=== PATIENT | male | born 1960 | race Caucasian/White ===

== ENCOUNTER 2016-07-04 13:31 | Emergency (ER) | payer OTHER ==
[~2016-07-04] VITALS: Ht 182.9 cm; Wt 91.4 kg
[~2016-07-04 13:31] MED LIST: CHOL200025 PO; CIPR-198 PO; CYAN500L3 SL; DILT360C36 PO; FLUT16SP NOSTRIL; KEN1O TOP; METR500T19 PO; MULT-666 PO; OMEP40CA36 PO; ONDA4TAB12 PO; OXYC5TAB72 PO; POTA20TA16 PO; VENL37.57 PO; WARF2TAB7 PO; ZINC50TA4 PO
[2016-07-04 13:34] VITALS: BP 130/74; PULSE 83; RESP 20; O2SAT 97
[2016-07-04 15:00] LABS: BASOPHILS % (AUTO) 0.3 % (0-3); MONOCYTES % (AUTO) 7.8 % (4-12); Mean Corpuscular Hemoglobin 28.8 pg (27.0-35.0); Mean Corpuscular Volume 85.1 fL (81-100); NEUTROPHILS % (AUTO) 61.2 % (40-74); Platelet Count 189 bil/L (150-400)
[2016-07-04] MEDS ORDERED: Ondansetron 2 mg/mL 2 mL Inj IVPUSH PRN (15:30)
[2016-07-04] MEDS ORDERED: HYDROmorphone 1 mg/mL Inj IVPUSH PRN (15:30)
[2016-07-04 15:41] LABS: INR 0.95 ratio
--- NOTE | 2016-07-04 15:56 | DRSVH ---
PROCEDURE: X-RAY CHEST ONE VIEW, PORTABLE ([id number]) INDICATIONS: infection TECHNIQUE: One view of the chest was acquired. COMPARISON: [facility], CR, XR CHEST 1VW (PORTABLE), 07/20/2015, 0:08. FINDINGS: Surgical changes and devices: Partially visualized cervical fixation plates are noted. Right-sided ce ntral venous catheter is unchanged. Lungs and pleura: No pleural effusions or pneumothorax. Lungs are clear. Mediastinum: Mediastinal contours appear normal. Heart size is normal. Bones and chest wall: No suspicious bony lesions. Overlying soft tissues appear unremarkable. IMPRESSION: No acute pulmonary process. Dictated by: Francheska Mills M.D. on 07/04/2016 at 15:55 Approved by: Francheska Mills M.D. on 07/04/2016 at 15:55
--- NOTE | 2016-07-04 16:55 | ED.REPORT ---
HPI-General Illness Date of Service Jul 04, 2016 ED Provider: Will Carter MD History of Present Illness: A 55 year old male with a history of Crohn's with ileostomy, asthma, GERD, hypertension, PE/DVT presents to the ED with a complication to his central line. The patient's right tunnel cath began draining small amounts of bloody fluid, for one week now. This is the first instance of bloody draining in the past year. He also notes mild tenderness, mild itching, and mild subjective chills. He denies fever, nausea, vomiting, chest pain, shortness of breath, abdominal pain, constipation and any other medical complaints at this time. His Crohn's is currently being treated with azathioprine and 10 L of MS fluid per week through the tunnel cath. Nursing Notes Stated Complaint: TUNNEL CATH POSS INFECTED Chief Complaint: General Complaint Nursing Notes Reviewed: Yes Allergies: Coded Allergies: Sulfa (Sulfonamide Antibiotics) (Verified Allergy, Intermediate, rash, 01/20) palpitations and flushing Scheduled Cholecalciferol (Vitamin D3) (Vitamin D3) 2,000 Unit Tablet 2,000 UNIT PO BID Ciprofloxacin (Ciprofloxacin) 500 Mg Tablet 500 MG PO BID Cyanocobalamin (Vitamin B-12) (B-12) 500 Mcg Tab.rapdis 500 MCG SL MoWeFr Diltiazem ER (Diltiazem ER) 360 Mg Cap.er.24h 360 MG PO DAILY Fluticasone Propionate (Fluticasone Propionate Nasal) 16 Gm [place].susp 2 SPRAY NOSTRIL BID Metronidazole (Metronidazole) 500 Mg Tablet 500 MG PO QID Multivitamin (Once Daily) 1 Each Tablet 1 EACH PO DAILY Omeprazole (Omeprazole) 40 Mg Capsule.dr 40 MG PO DAILY Potassium Chloride (Potassium Chloride) 20 Meq Tab.er.prt 20 MEQ PO BID Venlafaxine (Venlafaxine) 37.5 Mg Tablet 37.5 MG PO BID Warfarin Sodium (Warfarin Sodium) 2 Mg Tablet 2 MG PO SuMoWeFrSa Warfarin Sodium (Warfarin Sodium) 2 Mg Tablet 1 MG PO TuTh Zinc Gluconate (Zinc) Unknown Strength Tablet 50 MG PO BID Scheduled PRN Ondansetron ODT (Ondansetron ODT) 4 Mg Tab.rapdis 4-8 MG PO TID PRN PRN For Nausea Triamcinolone Acet (Triamcinolone Acetonide Ointment) 1 Applic/0.25 Gm Oint 1 APPLIC TOP BID PRN PRN skin irritation oxyCODONE (oxyCODONE) 5 Mg Tablet 5 MG PO Q6H PRN PRN For Pain General Time Seen by MD: 15:20 Chief Complaint Other (Central tunneled catheter concern. ) Hx Obtained From: Patient Sudden in Onset?: No Past Medical History Past Medical History 1. Crohn's disease 2. Asthma 3. GERD 4. HTN 5. Depression 6. Hx of DVT and PE, on warfarin 7. Nasal allergies Past Surgical History 1. LE Vein Stripping 2. Cervical Laminectomy 3. Total Colectomy with ileostomy 4. Appendectomy 5. Bilateral Hernia Repair 6. Cholecystectomy 7. Laparotomy with lysis of adhesions 2007 Family History Sister - CHF Brother - [place] Mother - Emphysema, Lung Cancer, Stomach Cancer Smoking History Never Smoker Social History Alcohol Use: "Social" Drug Use: Denies drug use Other Social History: Local resident Ambulatory Status Independent Review of Systems A comprehensive review of systems was conducted with the patient and found to be negative except as above in the History of Present Illness. Full Review of Systems Constitutional: Reports: Chills GI: Reports: Nausea, Vomiting (morning vomiting) Musculoskeletal: Reports: Joint pain Skin: Reports Itching, Reports Rash Physical Exam General: Pleasant gentleman sitting up in bed in no acute distress, well-developed, well-nourished, appropriately interactive. HEENT: Normocephalic, atraumatic. External ears without defect. Pupils equal, round, and reactive to light and accommodation. Anicteric sclerae, moist conjunctivae, and no lid lag. Oropharynx free of erythema and cobble stoning with moist mucosa. Neck: Supple with full range of motion. No jugular venous distension. No bruits. No lymphadenopathy or thyromegaly. Cardiovascular: Regular rate and rhythm with no murmurs, rubs, or gallops appreciated Pulmonary: Clear to auscultation bilaterally with no crackles, wheezes, or rhonchi. Normal respiratory effort with no use of accessory muscles. Abdomen: Bowel tones present. Soft, Tender to palpation, nondistended. No hepatosplenomegaly or masses appreciated. Extremities: No clubbing, cyanosis, edema, or lymphadenopathy appreciated. Skin: Normal temperature, turgor, and texture; small very mild scaly erythematous rash present lateral to the tunnel cath. No ulcers, or subcutaneous nodules appreciated. Right shoulder decrease in range of motion. Neurological: Cranial nerves grossly intact. Normal muscle strength, tone, and bulk. Reflexes, coordination, and sensory function within normal limits. No known gait impairment. Psychiatric: Normal mood and affect. Alert and oriented to person, place, and time. Vital Signs Vital Signs Date Time Temp Pulse Resp B/P Pulse Ox O2 Delivery O2 Flow Rate FiO2 07/04/16 18:27 74 16 122/62 96 Room Air 07/04/16 13:34 37.2 83 20 130/74 97 Room Air Interpretation & Diagnostics Lab Results Interpretation Result Diagram: 07/04/16 1452 07/04/16 1452 Test 07/04/16 14:52 07/04/16 16:15 White Blood Count 11.1th/mm3 (3.8-10.1) Red Blood Count 5.11mil/mm3 (4.40-5.80) Hemoglobin 14.7g/dL (13.8-17.2) Hematocrit 43.5% (41.0-50.0) Mean Corpuscular Volume 85.1fL (81-100) Mean Corpuscular Hemoglobin 28.8pg (27.0-35.0) Mean Corpuscular Hemoglobin Concent 33.8% (32.0-37.0) Red Cell Distribution Width 12.4% (12.3-15.4) Platelet Count 189bil/L (150-400) Neutrophils (%) (Auto) 61.2% (40-74) Lymphocytes (%) (Auto) 27.5% (14-46) Monocytes (%) (Auto) 7.8% (4-12) Eosinophils (%) (Auto) 3.0% (0-5) Basophils (%) (Auto) 0.3% (0-3) Prothrombin Time 10.2sec (8.1-12.5) Prothromb Time International Ratio 0.95ratio Sodium Level 138mEq/L (134-144) Potassium Level 4.3mEq/L (3.5-5.2) Chloride Level 102mEq/L (97-108) Carbon Dioxide Level 24mmol/L (18-29) Blood Urea Nitrogen 10mg/dL (6-24) Creatinine 1.14mg/dL (0.76-1.27) Estimat Glomerular Filtration Rate 71mL/min (>59) Glucose Level 93mg/dL (60-99) Calcium Level 9.0mg/dL (8.5-10.1) Total Bilirubin 0.8mg/dL (0.0-1.2) Aspartate Amino Transf (AST/SGOT) 21U/L (0-50) Alanine Aminotransferase (ALT/SGPT) 20U/L (0-44) Alkaline Phosphatase 105U/L (25-150) Total Protein 7.1g/dL (6.4-8.4) Albumin 4.2g/dL (3.4-5.0) Hold Brand Top Tube Received (Received) Re-Eval/Medical Decision Med Decision/Clinical Course Mr. Crow Sim is a 55-year-old male with a 3 year history of adult onset Crohn's flareups after childhood Crohn's with complete colectomy and ileostomy. He is currently on azathioprine and IV fluids fluids at 10 L and as per week as well as oxycodone 10 mg every 4 hours as needed pain medication and Zofran ODT anti-emetics at home. He reports 1 week onset of mild bloody oozing from his tunneled catheter site which was placed a year ago with weekly bandaging and daily cleansing. He notes some very mild tenderness in that area as well as a new mild scaly itchy lesions lateral to the tunneled catheter site. He denies fevers however has reported very mild chills at home. We will obtain blood cultures as well as blood cultures from the tunneled cath and found to telephone the tunneled cath is currently pleasant pending and we plan to follow . His vitals are stable and his white count is below his baseline of 11.1, CRP is negative at 0.1. We do not believe the tunneled catheter site is infected and can be discharged home safely. Discharge & Departure Shift Change Sign-Out Discussed Complaint(s): Yes Laboratory Evaluation: Lab evaluation discussed Imaging Studies: Imaging discussed Response to Therapy: Unchanged Primary Impression: Central line complication Disposition: Home Discharge Condition All VS Reviewed: Yes Condition: Stable Patient Instructions: Tunneled Central Lines Adult (ED) Additional Instructions: During you visit to [facility] Emergency Department we obtained blood work for infectious markers, hemoglobin levels, and electrolytes, as well as inflammatory markers. We obtained a chest x-ray. All your lab values were within normal limits and your imaging showed no acute processes or abnormalities. We took blood cultures from her cath as well as fungus level, which we plan to follow upon discharge and will contact you if they come back positive. Do not hesitate to call emergency services or your primary care physician if you experience any of the following. -High unrelenting fevers. -Uncontrolled vomiting. -Severe hypertension. -Syncope or loss of consciousness. -Chest pain or severe shortness of breath. -Drastic increase in redness and irritation of your central cath. Follow up with your primary care physician in 1-2 weeks time following your emergency department visit for medication checks and general well-being. Referrals: Ricki Rutledge MD (PCP) Attending Statement I saw and evaluated patient with Resident Dr Ahmadi and agree with assessment and plan as above.. 55-year-old male history of Crohn's setting by primary doctor after he called to complain that there was redness around his tunneled catheter. Reports this for the last week which is resolved today. No associated nausea vomiting, fevers or any other associated symptoms. There is no evidence of infection clinically. White blood cell count is 11,000 which is decreased from previous. CRP is normal. Blood cultures sent. No evidence of infection based on labs and exam at this time. Able for discharge home with return precautions regarding any redness, pain, swelling, discharge, any other new or worsening symptoms. Otherwise follow-up with primary doctor in 1-2 days for reevaluation. copies to: Ricki Rutledge MD, COREY P DO Jul 04, 2016 15:51 Will Carter MD Jul 04, 2016 18:56
[2016-07-04 18:27] VITALS: BP 122/62; PULSE 74; RESP 16; O2SAT 96
[2016-09-07] MEDS ORDERED: CLOT45CR7 TP (16:29)
[2016-09-07] MEDS ORDERED: [UNRECOGNIZED DRUG - OTHER] (16:29)
[2016-09-07] MEDS ORDERED: CETI5TAB28 PO (16:29)
[2016-09-07] MEDS ORDERED: AZTH50T PO (16:29)
[2016-09-07] MEDS ORDERED: LOM PO (16:29)
[2016-09-07] MEDS ORDERED: REMICADE IV (16:29)
[2016-09-07] MEDS ORDERED: EPIN0.3P2 IJ (16:29)
== END 2016-07-04 18:28 | disposition home or self-care (01) ==
LOC: SED 13:31
DX: T82.534A Leakage of infusion catheter, initial encounter (principal); Y83.8 Other surgical procedures as the cause of abnormal reaction of the patient, or of later complication, without mention of misadventure at the time of the procedure; Y99.8 Other external cause status; Y92.9 Unspecified place or not applicable; K50.90 Crohn's disease, unspecified, without complications; I10 Essential (primary) hypertension; J45.909 Unspecified asthma, uncomplicated; Z90.49 Acquired absence of other specified parts of digestive tract; Z86.718 Personal history of other venous thrombosis and embolism; Z87.19 Personal history of other diseases of the digestive system; Z79.01 Long term (current) use of anticoagulants; Z88.2 Allergy status to sulfonamides
CPT/HCPCS: 36415; 71010; 80053; 85025; 85610; 86140; 87040; 87449; 96374; 96375; 99284; J1170; J2405

== ENCOUNTER 2016-08-10 18:29 | Inpatient (IN) | payer OTHER ==
[~2016-08-10] VITALS: Ht 182.9 cm; Wt 96.0 kg
[2016-08-10 18:00] VITALS: PULSE 112
[2016-08-10 18:44] VITALS: BP 149/90; PULSE 130; RESP 22
[2016-08-10] MEDS ORDERED: 0.9% Sodium Chloride 1,000 ML IV ONE ×2 (19:00→20:20)
--- NOTE | 2016-08-10 19:00 | ED.REPORT ---
HPI-Abd Pain M 40 and Over Date of Service Aug 10, 2016 ED Provider: Ge Pandey DO A 55 year old male with a history of Crohn's disease, hypertension, depression, and ileostomy presents to the ED complaining of abdominal pain. This is accompanied by nausea and vomiting. The pt believes that his symptoms are due to a flare of Crohn's. He began feeling abdominal cramping two days ago and did not eat in an attempt to avoid a flare of Crohn's. He ate a piece of toast today and began experiencing severe abdominal pain, nausea, vomiting, and belching. The pt has been emptying his ostomy bag hourly. He usually takes oxycodone for the pain, but this has been ineffective. The pt denies any history of C. difficile. He is no longer on Warfarin. Nursing Notes Stated Complaint: STOMACH PAIN,HEADACHE,NAUSEA Chief Complaint: Male Abdominal Pain Nursing Notes Reviewed: Yes Allergies: Coded Allergies: Sulfa (Sulfonamide Antibiotics) (Verified Allergy, Intermediate, rash, ) palpitations and flushing Scheduled Cholecalciferol (Vitamin D3) (Vitamin D3) 2,000 Unit Tablet 2,000 UNIT PO BID Cyanocobalamin (Vitamin B-12) (B-12) 500 Mcg Tab.rapdis 500 MCG SL MoWeFr Fluticasone Propionate (Fluticasone Propionate Nasal) 16 Gm [place].susp 2 SPRAY NOSTRIL BID Multivitamin (Once Daily) 1 Each Tablet 1 EACH PO MONWEDFRI Omeprazole (Omeprazole) 40 Mg Capsule.dr 40 MG PO DAILY Potassium Chloride (Potassium Chloride) 20 Meq Tab.er.prt 20 MEQ PO BID Promethazine (Promethazine) 12.5 Mg Tablet 12.5 MG PO DAILY Venlafaxine ER (Venlafaxine ER) 37.5 Mg Cap.er.24h 37.5 MG PO HS Zinc Gluconate (Zinc) Unknown Strength Tablet 50 MG PO BID Scheduled PRN Ondansetron ODT (Ondansetron ODT) 4 Mg Tab.rapdis 4-8 MG PO TID PRN PRN For Nausea Triamcinolone Acet (Triamcinolone Acetonide Ointment) 1 Applic/0.25 Gm Oint 1 APPLIC TOP BID PRN PRN skin irritation oxyCODONE (oxyCODONE) 5 Mg Tablet 5 MG PO Q6H PRN PRN For Pain General Time Seen by MD: 19:00 Chief Complaint Abdominal pain Hx Obtained From: Patient Arrived By: Walk-in Sudden in Onset?: No Onset Occurred: 2 days ago Symptom Duration: Since onset Recent Healthcare: Recent doctor visit, Recent hospitalization Similar Sx Previous: Yes Past Medical History Past Medical History Notes: GI: Dr. Jemal Esquivel, Past Medical History 1. Crohn's disease 2. Asthma 3. GERD 4. HTN 5. Depression 6. Hx of DVT and PE 2014, previously on warfarin 7. Nasal allergies Past Surgical History 1. LE Vein Stripping 2. Cervical Laminectomy 3. Total Colectomy with ileostomy 4. Appendectomy 5. Bilateral Hernia Repair 6. Cholecystectomy 7. Laparotomy with lysis of adhesions 2007 Family History Sister - CHF Brother - [place] Mother - Emphysema, Lung Cancer, Stomach Cancer Smoking History Never Smoker Social History Alcohol Use: "Social" Drug Use: Denies drug use Other Social History: Local resident Ambulatory Status Independent Review of Systems Review of Systems Note: frequent emptying of ostomy bag Constitutional: Denies: Fever Respiratory: Denies: Non-productive cough Cardiovascular: Denies: Chest pain GI: Reports: Abdominal pain, Belching, Nausea, Vomiting Musculoskeletal: Denies: Back pain Complete sys rev & neg: except as marked. Physical Exam Initial Vital Signs Vital Signs (First) Date Time Temp Pulse Resp B/P Pulse Ox O2 Delivery O2 Flow Rate FiO2 08/10/16 18:44 37.4 130 22 149/90 Room Air 08/10/16 22:30 97 Initial VS: Reviewed General/Constitutional: Awake, Alert acutely ill actively wretching Respiratory / Chest: Atraumatic, Breath sounds NL, Breath sounds = bilat, No respiratory distress Cardiovascular: Regular rhythm, Heart sounds NL Heart Rate / Rhythm: Positive: Tachycardia Abdomen: Atraumatic diffusely tender extended hyperactive bowel sounds Back: Atraumatic, Full range of motion Head / Eyes: Atraumatic, Normocephalic, PERRL, EOMI ENT: Atraumatic, Airway patent, Mucous membranes moist Skin: Atraumatic, Color NL, No rash, Warm, Dry Neurologic: Oriented X3, Speech NL, No motor deficits, No sensory deficits Neck: Atraumatic, Supple, Full range of motion Upper Extremity / MS: Atraumatic, Full range of motion Lower Extremity / Pelvis / MS: Atraumatic, Full range of motion Psychiatric: Affect NL, Mood NL Interpretation & Diagnostics Interpretation & Diagnostics: Abdomen CT: IMPRESSION: 1. Surgical changes reflecting colectomy as well as lower quadrant osteopenia there is a questionable appearance of thickening within small bowel loops in the left hemiabdomen without appreciable surrounding inflammatory change. This could be reflective of early changes of inflammation related to Crohn's disease. 2. Distal esophageal thickening traversing the gastroesophageal junction with small hiatal hernia. Could relate to esophagitis. It is unchanged from prior exam, but mildly more prominent compared to prior exams dated 07/23/13. Recommend interval followup as indicated. Dictated by: Francheska Mills M.D. on 08/10/2016 at 21:46 Approved by: Francheska Mills M.D. on 08/10/2016 at 21:52 Lab Results Interpretation Result Diagram: 08/11/16 0445 08/11/16 0445 Test 08/10/16 19:19 08/10/16 20:49 Prothrombin Time 10.4sec (8.1-12.5) Prothromb Time International Ratio 0.97ratio Magnesium Level 1.9mg/dL (1.6-2.6) Lipase 32U/L (13-60) Urine Color Yellow (YELLOW) Urine Appearance Hazy (CLEAR,HAZY) Urine pH 6.0 (5.0-8.0) Urine Specific [place] 1.025 (1.003-1.035) Urine Protein Negativemg/dL (NEG,TRACE) Urine Glucose (UA) Negativemg/dL (NEGATIVE) Urine Ketones Negativemg/dL (NEGATIVE) Urine Occult Blood Negative (NEGATIVE) Urine Nitrite Negative (NEGATIVE) Urine Bilirubin Negative (NEGATIVE) Urine Urobilinogen Normalmg/dL (NORMAL) Urine Leukocyte Esterase Negative (NEGATIVE) Urine RBC 0-2/hpf (0-2) Urine WBC 0-5/hpf (0-5) Urine Epithelial Cells Moderate/hpf (NONE-MOD) Urine Crystals None seen (NONE SEEN) Urine Bacteria Few/hpf (NONE-FEW) Urine Hyaline Casts None/lpf (NONE) Urine Granular Casts None seen (NONE SEEN) Urine Waxy Casts None seen (NONE SEEN) Urine Red Blood Cell Casts None seen (NONE SEEN) Urine White Blood Cell Casts None seen (NONE SEEN) Urine Mucus Present (None Seen) Urine Trichomonas None seen (NONE SEEN) Urine Yeast None (NONE SEEN) Urinalysis Comment None Urine Culture Reflexed Not indicated Pulse Oximetry Interpretation Pulse Oximetry Interpretation: 97% on room air Pulse Oximetry: Pulse Ox normal ECG Interpretation ECG Interpretation: sinus tachycardia with a rate of 118 incomplete RBBB significant artifact cannot comment on ST segments due to artifact Time: 19:15 Interpreted by: ED physician Re-Eval/Medical Decision Source of Hx: Old records Time of Eval: 23:56 Re-Evaluation/Progress Note: Pt rechecked, whose pain has returned. He is nauseated and tachycardic. He is informed of his radiology results, lab results, and diagnosis. The plan for admission is discussed. The pt understands and agrees with the plan. All questions are addressed at this time. Consultation #1: Referral / Consult Name: Houston Charles MD Consulted With: Hospitalist Call Returned at: 00:14 Mortgage Underwriter: Agrees with eval Note: Spoke with Dr. Charles, hospitalist, regarding pt's case. Dr. Charles requests GI consultation first. Consultation #2: Referral / Consult Name: Adonis Rao MD Call Returned at: 00:19 Mortgage Underwriter: Agrees with eval, Agrees with plan Note: Spoke with Dr. Rao GI, regarding pt's case. Dr. Rao agrees to see the pt tomorrow and recommends no steroids until this point. Consultation #3: Referral / Consult Name: Houston Charles MD Consulted With: Hospitalist Call Returned at: 00:23 Mortgage Underwriter: Agrees with eval, Agrees with plan, Accepts admit Note: Spoke with Dr. Charles, hospitalist, regarding pt's case. Dr. Charles agrees with the evaluation and agrees to admit the pt. Counseled Regarding: Diagnosis, Lab results, Need for admission Discharge & Departure Primary Impression: Crohn's disease Gastrointestinal tract location: unspecified location Digestive disease complication type: without complications Qualified Code: K50.90 - Crohn's disease, unspecified, without complications Additional Impressions: Intractable pain Nausea & vomiting Vomiting type: unspecified Vomiting Intractability: unspecified Qualified Code: R11.2 - Nausea with vomiting, unspecified Disposition: ADMITTED TO HOSPITAL Vital Signs - All Vital Signs Date Time Temp Pulse Resp B/P Pulse Ox O2 Delivery O2 Flow Rate FiO2 08/11/16 00:18 108 15 132/71 94 Room Air 08/10/16 22:30 102 19 132/64 97 Room Air 08/10/16 18:44 37.4 130 22 149/90 Room Air )( All Prior VS Reviewed: Yes Condition: Stable Referrals: Ricki Rutledge MD (PCP) María Elenaibkaitlin Attestation Portions of this note were transcribed by Bryant Arias. I, Dr. Pandey personally performed the history, physical exam and medical decision-making; I reviewed and confirmed the accuracy of the information in the transcribed note. Signed by: Akila Garcia, 08/11/2016 and 0054. copies to: Ricki Rutledge MD, Todd P DO Aug 10, 2016 19:00 BRYANT ARIAS Aug 10, 2016 19:24 Urine Urobilinogen Normalmg/dL (NORMAL) Urine Leukocyte Esterase Negative (NEGATIVE) Urine RBC 0-2/hpf (0-2) Urine WBC 0-5/hpf (0-5) Urine Epithelial Cells Moderate/hpf (NONE-MOD) Urine Crystals None seen (NONE SEEN) Urine Bacteria Few/hpf (NONE-FEW) Urine Hyaline Casts None/lpf (NONE) Urine Granular Casts None seen (NONE SEEN) Urine Waxy Casts None seen (NONE SEEN) Urine Red Blood Cell Casts None seen (NONE SEEN) Urine White Blood Cell Casts None seen (NONE SEEN) Urine Mucus Present (None Seen) Urine Trichomonas None seen (NONE SEEN) Urine Yeast None (NONE SEEN) Urinalysis Comment None Urine Culture Reflexed Not indicated Lactic Acid Level 1.7mmol/L (0.4-2.0) Pulse Oximetry Interpretation Pulse Oximetry Interpretation: 97% on room air Pulse Oximetry: Pulse Ox normal ECG Interpretation ECG Interpretation: sinus tachycardia with a rate of 118 incomplete RBBB significant artifact cannot comment on ST segments due to artifact Time: 19:15 Interpreted by: ED physician Re-Eval/Medical Decision Source of Hx: Old records Time of Eval: 23:56 Re-Evaluation/Progress Note: Pt rechecked, whose pain has returned. He is nauseated and tachycardic. He is informed of his radiology results, lab results, and diagnosis. The plan for admission is discussed. The pt understands and agrees with the plan. All questions are addressed at this time. Consultation #1: Referral / Consult Name: Houston Charles MD Consulted With: Hospitalist Call Returned at: 00:14 Mortgage Underwriter: Agrees with eval Note: Spoke with Dr. Charles hospitaldanica, regarding pt's case. Dr. Charles requests GI consultation first. Consultation #2: Referral / Consult Name: Adonis Rao MD Call Returned at: 00:19 Mortgage Underwriter: Agrees with eval, Agrees with plan Note: Spoke with Dr. Rao, GI, regarding pt's case. Dr. Rao agrees to see the pt tomorrow and recommends no steroids until this point. Consultation #3: Referral / Consult Name: Houston Charles MD Consulted With: Hospitalist Call Returned at: 00:23 Mortgage Underwriter: Agrees with eval, Agrees with plan, Accepts admit Note: Spoke with thu Mcdermott, regarding pt's case. Dr. Charles agrees with the evaluation and agrees to admit the pt. Counseled Regarding: Diagnosis, Lab results, Need for admission Discharge & Departure Primary Impression: Crohn's disease Gastrointestinal tract location: unspecified location Digestive disease complication type: without complications Qualified Code: K50.90 - Crohn's disease, unspecified, without complications Additional Impressions: Intractable pain Nausea & vomiting Vomiting type: unspecified Vomiting Intractability: unspecified Qualified Code: R11.2 - Nausea with vomiting, unspecified Disposition: ADMITTED TO HOSPITAL Vital Signs - All Vital Signs Date Time Temp Pulse Resp B/P Pulse Ox O2 Delivery O2 Flow Rate FiO2 08/11/16 00:18 108 15 132/71 94 Room Air 08/10/16 22:30 102 19 132/64 97 Room Air 08/10/16 18:44 37.4 130 22 149/90 Room Air )( All Prior VS Reviewed: Yes Condition: Stable Referrals: Ricki Rutledge MD (PCP) Akila Attestation Portions of this note were transcribed by Bryant Arias. I, Dr. Pandey personally performed the history, physical exam and medical decision-making; I reviewed and confirmed the accuracy of the information in the transcribed note. Signed by: Akila Garcia, 08/11/2016 and 0054. copies to: Ricki Rutledge MD, Todd P DO Aug 10, 2016 19:00 BRYANT ARIAS Aug 10, 2016 19:24
[2016-08-10] MEDS: Ondansetron 2 mg/mL 2 mL Inj IVPUSH PRN ×3 (19:27→21:51)
[2016-08-10] MEDS: HYDROmorphone 0.5 mg/0.5 mL iSecure Syringe IVPUSH PRN ×3 (19:27→21:51)
[2016-08-10 19:42] LABS: Mean Corpuscular Volume 87.2 fL (81-100)
[2016-08-10 19:52] LABS: BASOPHILS % (AUTO) 0.5 % (0-3); EOSINOPHILS % (AUTO) 4.4 % (0-5); INR 0.97 ratio; MONOCYTES % (AUTO) 11.2 % (4-12); NEUTROPHILS % (AUTO) 52.5 % (40-74); Platelet Count 152 bil/L (150-400)
[2016-08-10 19:59] LABS: Magnesium 1.9 mg/dL (1.6-2.6)
[2016-08-10 21:10] LABS: COLOR,URINE YELLOW (YELLOW)
[2016-08-10 21:11] LABS: APPEARANCE,URINE HAZY (CLEAR,HAZY); OCCULT BLOOD,URINE NEGATIVE (NEGATIVE)
[2016-08-10 21:12] LABS: UROBILINOGEN,URINE NORMAL (NORMAL)
--- NOTE | 2016-08-10 21:54 | DRSVH ---
PROCEDURE: CT ABDOMEN AND PELVIS WITH CONTRAST (PNL-7102) INDICATIONS: crohn's disease, severe pain, vomiting, TECHNIQUE: After the administration of intravenous contrast, 5 mm thick sections acquired from the diaphragm to the symphysis. 5 mm coronal and sagittal reformats were acquired. For radiation dose reduction, the following was used: automated exposure control, adjustment of mA and/or kV according to patient siz e. COMPARISON: [facility], CT, ABD/PELVIS W/CON (PNL), 07/23/2013, 20:33. [facility], CT, CT ABD PELVIS W CON, 01/21/2016, 18:50. FINDINGS: Image quality: Excellent. ABDOMEN: Lung bases: There is an unchanged appearance of nodular patchy opacity within the lingula, unchanged. In addition, there is a patchy consolidative like opacity within the left base, new compared to prio r exam. Solid organs: Liver and spleen are at the upper limits of normal in size the. Hepatic steatosis is p resent. Gallbladder has been removed. Biliary system is non dilated. Pancreas enhances normally. N o adrenal nodules. Kidneys demonstrate normal size and enhancement, without hydronephrosis. Peritoneum and bowel: Small bowel loops demonstrate a normal appearance of thickening within the left hemiabdomen. No definitive pericolonic inflammatory change. No free fluid or air. Right lower quadr ant ostomy site is present. Surgical changes consistent with colectomy are noted. Nodes and vessels: No retroperitoneal or mesenteric adenopathy by size criteria. Aorta and inferior vena cava are normal in size. Miscellaneous: No ventral hernias. There is diffuse thickening of the distal esophagus traversing ga stroesophageal junction. It is relatively unchanged compared 01/21/16. Hiatal hernia is present. PELVIS: Genitourinary: Bladder wall thickness is normal. Miscellaneous: No inguinal hernias or adenopathy. Bones: No suspicious bony lesions. No vertebral body compression fractures. IMPRESSION: 1. Surgical changes reflecting colectomy as well as lower quadrant osteopenia there is a questionable appearance of thickening within small bowel loops in the left hemiabdomen without appreciable surrou nding inflammatory change. This could be reflective of early changes of inflammation related to Crohn 's disease. 2. Distal esophageal thickening traversing the gastroesophageal junction with small hiatal hernia. Co uld relate to esophagitis. It is unchanged from prior exam, but mildly more prominent compared to harris or exams dated 07/23/13. Recommend interval followup as indicated. Dictated by: Francheska Mills M.D. on 08/10/2016 at 21:46 Approved by: Francheska Mills M.D. on 08/10/2016 at 21:52
[2016-08-10 22:30] VITALS: BP 132/64; PULSE 102; RESP 19; O2SAT 97
[2016-08-11] VITALS (8 sets, daily range): BP systolic 80–132; BP diastolic 60–72; PULSE 98–115; RESP 15–22; O2SAT 93–98
[2016-08-11] MEDS ORDERED: Ketorolac 15 mg/mL Inj IVPUSH ONE (01:10)
[2016-08-11] MEDS: 0.9% Sodium Chloride 1,000 ML IV SCH ×2 (01:35→13:28)
[2016-08-11] MEDS ORDERED: PROM12.510 PO (01:50)
--- NOTE | 2016-08-11 02:08 | PCM.HPMED ---
Subjective Date of Service Aug 11, 2016 Primary Provider: Admitting Physician: Houston Charles MD Primary Care Physician: Ricki Rutledge MD Attending Physician: Houston Charles MD Chief Complaint: Possible Crohn's flare History of Present Illness: 55-year-old gentleman with history of Crohn's (currently on Remicade) status post colectomy with ileostomy who presents three-day complaint of increased nausea and vomiting associated with decreased by mouth intake, and increased bilateral lower abdominal cramping associated with increased ostomy output. Patient reports that he was in his usual state of health until approximately 3 days ago when he experienced increased bilateral lower abdominal cramping. He was concerned this was a Crohn's flare, and abruptly cut back on dietary items noted in his history to complicate his Crohn's. He notes that there is associated increased output from his ostomy which is described as clear with minimal bloody streaks. He reports that on the morning of 08/10/16 he ate a piece of toast, and immediately started to feel nauseous and is subsequently had intractable nausea and vomiting until his presentation at the ER. He denies bloody or coffee-ground emesis. He reports that he feels overall malaise , and upon presentation in the ER he was feeling quite cold and even chilled ( but is not aware of any fevers). He reports that when he gets sick like this he does have bilateral lower extremity weakness for which she uses a cane. Patient follows with GI at [facility] (Dr. Jemal Esquivel ). A perform multiple trials with multiple different medications to control his Crohn's. Most recently (his last visit was 05/2016) he was started on 1 month of azathioprine (completed last month), and is currently on Remicade (his last reported dose was last Sunday (08/01/16), and reports that his next dose is scheduled for next (07/21/16)). Historically he reports that he has these episodes approximately every several months. He denies any historical use of steroids. He denies any other complaints except for a headache at this time (states that it came on following the third dose of IV narcotic here in ER) . He reports that he will occasionally get headaches at home which respond well to NSAIDs. Denies sick contacts, recent travel, recent antibiotics. In the ER, patient is tachycardic, but afebrile and his other vital signs are unremarkable. He has been given 2 L of normal saline, 3 doses of 0.5 mg IV hydromorphone, and 3 doses of 4 mg IV ondansetron. Labs demonstrated an elevated lactic acid initially, which came down to 1.7 following fluid administration. Otherwise, labs are unremarkable. CT of the abdomen demonstrates equivocal/possible thickening within some small bowel loops, but without appreciable surrounding inflammatory change. There is also some note of distal esophageal thickening traversing the GE junction with a small hiatal hernia. This last was noted to be relatively unchanged from prior exam in 2013. Patient reports at this time that he feels a little cool (but not cold like before), has a moderate headache, but otherwise feels rather comfortable. He reports that it was somewhat difficult to urinate here in the ER in the urinal, but denies significant historical difficulty with this. He otherwise denies any complaints. Patient is admitted under inpatient status with expected length of stay greater than 2 midnights due to severity of presenting symptoms, risk of adverse event, and complexity of treatment plan. Comprehensive review of systems conducted and was negative except for the pertinent positives listed in history of present illness above. Allergies Coded Allergies: Sulfa (Sulfonamide Antibiotics) (Verified Allergy, Intermediate, rash, ) palpitations and flushing Home Medications Jerome Sim. [id number] 1960 07/20/2016 10:20 AM / azathioprine 50 mg tablet-no longer taking Is now on Remicade through GI take 2 tablet by ORAL route every day 12/03/2014 cane regular cane 07/22/2015 cetirizine 10 mg tablet take 1 tablet by oral route every day 05/24/2016 clotrimazole 1 % topical cream apply by topical route 2 times every day to the affected and surrounding areas of skin in the morning and evening Daily Vitamin tablet take 1 tablet by oral route 3 days per week 07/22/2015 diphenoxylate-atropine 2.5 mg-0.025 mg tablet 1-2 tab 3 time a day prn 05/16/2010 Epipen 2-Jeyson take as needed 05/24/2016 Flonase Allergy Relief 50 mcg/actuation nasal spray,suspension inhale 2 spray by intranasal route every day in each nostril 01/25/2016 omeprazole 40 mg capsule,delayed release TAKE 1 CAPSULE DAILY BEFORE A MEAL FOR ACID REFLUX 12/16/2014 ondansetron 4 mg disintegrating tablet take 1 Tablet by oral route every [address] on top of the tongue where it will dissolve, then swallow as needed. 07/06/2016 oxycodone 5 mg tablet take 1 tablet by ORAL route every 6 hours as needed for pain 02/16/2016 potassium chloride ER 20 mEq tablet,extended release take 1 tablet by oral route 2 times every day with food 10/05/2014 triamcinolone acetonide 0.1 % topical cream apply by topical route 2 times every day a thin layer to the affected area(s) 04/10/2016 venlafaxine ER 37.5 mg capsule,extended release 24 hr TAKE ONE CAPSULE BY MOUTH DAILY WITH FOOD. Vitamin B-12 2,500 mcg sublingual tablet take 1 tablet SL daily 09/13/2015 Vitamin D3 2,000 unit capsule take 2 capsules orally daily. 07/22/2015 zinc 50 mg tablet 2 tab a day PMH 1. Crohn's disease, currently on immunosuppressant therapy with Remicade * Diagnosed with Crohn's in 1989 with surgeries in that year. No further therapy until 2012 when he developed recurrence. * Failed: Humira, infliximab, azathioprine, methotrexate, vedolizumab, ustekinumab, and prednisone. * Endoscopy dated 01/21/16: * EGD: Large hiatal hernia. Erythematous gastropathy with biopsies taken. * Colonoscopy: Severe active Crohn's disease in the distal 10 cm of the ileum. Mild inflammation with interval improvement proximal to this. 2. Asthma 3. GERD 4. HTN 5. Depression 6. Hx of DVT and PE 2014, previously on warfarin 7. Nasal allergies 8. Occasional headaches 9. It appears patient's baseline creatinine is 1.1-1.2 (per outpatient record) Remote history of IV drug use (meth 1984) History of PSVT History of hepatitis C (treated successfully) Past Surgical History 1. LE Vein Stripping 2. Cervical Laminectomy with fusion 3. Total Colectomy with ileostomy 4. Appendectomy 5. Bilateral Hernia Repair 6. Cholecystectomy 7. Laparotomy with lysis of adhesions 2008 Tonsils-adenoids Family History Brother - ID Brother (2) with muscular dystrophy, and of complications secondary to such Brother with gastric cancer He does not know his father's health history (there is some question in outpatient record of AIDS, and also a note stating that his father at the age of 42 post ( His mother had depression, emphysema, colon cancer (onset age 51)-some notes mention colon cancer and lung cancer Sr. with congestive heart failure ( at the age of 42 secondary to complications of heart failure) Sr. 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 Denies any international travel. Exam Vital Signs Vital Sign - Last Date Time Temp Pulse Resp B/P Pulse Ox O2 Delivery O2 Flow Rate FiO2 08/11/16 00:18 108 15 132/71 94 Room Air 08/10/16 18:44 37.4 Exam General: Alert, Oriented X3, Cooperative, No Acute Distress, but does appear cold and has the blankets up to his chin Head: Normocephalic, atraumatic. External ears normal. Eyes: PERRL, EOMI. Anicteric sclerae. Sclerae are not injected Mouth: Mouth Normal, Mucous Membranes Moist/Tennyson. Do not appreciate any aphthous ulcers Neck: Neck supple with full range of motion. No Thyromegaly. Chest & Lungs: Clear to auscultation bilaterally with no crackles, wheezes, or rhonchi. Cardiovascular: Tachycardic Rate/sinus Rhythm on the monitor, Normal S1, Normal S2, No Murmurs/Rubs/Gallops radial pulses are 2+ bilaterally as are the posterior tibials Abdomen: Tender to palpation in the bilateral lower leavitt, Non-distended with minimal guarding except for left lower lodging, No masses appreciated, Normoactive bowel tones, surgical scars apparent. Ileostomy bag in the right lower quadrant (bag is not transparent, and therefore cannot assess the ostomy at this time). Musculoskeletal: Normal Range of Motion Extremities: No cyanosis/clubbing/edema bilat. Do not appreciate any indication of subcutaneous nodules Skin: Skin is warm to the touch. There is some scattered macular erythematous spots over the anterior chest (patient reports these are chronic and unchanged). Neurological: Grossly Neurologically Intact, Cranial Nerves 2-12 Intact, Normal Speech Psych: Normal mood and affect. Thought process and content intact. Lab and Diagnostics Labs Coags look good Lactic acid was 3.7, now 1.7 LFTs look good Lipase is 32 Total protein and albumin are normal UA shows moderate epithelial cells otherwise unremarkable. Result Diagram: 08/10/16191808/10/161918 Microbiology No micro-studies at this time, but please note that stool PCR has been ordered. X-Rays, CTs and MRIs Date of Service: 08/10/162102 PROCEDURE: CT ABDOMEN AND PELVIS WITH CONTRAST (PNL-7102) IMPRESSION: 1. Surgical changes reflecting colectomy as well as lower quadrant osteopenia there is a questionable appearance of thickening within small bowel loops in the left hemiabdomen without appreciable surrounding inflammatory change. This could be reflective of early changes of inflammation related to Crohn's disease. 2. Distal esophageal thickening traversing the gastroesophageal junction with small hiatal hernia. Could relate to esophagitis. It is unchanged from prior exam, but mildly more prominent compared to prior exams dated 07/23/13. Recommend interval followup as indicated. Dictated by: Francheska Mills M.D. on 08/10/2016 at 21:46 12-lead ECG Sinus tachycardia, but otherwise unremarkable. Cardiac Echo Impressions Echocardiogram 07/20/15 was unremarkable. Cardiac cath in 2007 was unremarkable Assessment & Plan 55-year-old gentleman with history of Crohn's (currently on Remicade) status post colectomy with ileostomy who presents three-day complaint of increased nausea and vomiting associated with decreased by mouth intake, and increased bilateral lower abdominal cramping associated with increased ostomy output. # Crohn's disease, possible flare (please note patient is on Remicade). Present on admission -Abdominal pain, chills, malaise, N/V. -No indication of toxic megacolon or stricture induced bowel obstruction on CT -CT does demonstrate possible wall thickening in the small bowel suggestive of colitis -ER physician discussed case with GI specialist, and recommended fluids overnight and avoiding steroids. -Gentle IV fluids overnight, and will add clear liquid diet (as nausea and vomiting improve, consider discontinuing IV fluids) -We will provide DVT prophylaxis with heparin subcutaneously (given increased risk of thromboembolic events during flare) -Pain control with IV narcotic until nausea and vomiting is better controlled -Antiemetic -Differential includes: Infectious colitis (given increased ostomy output, patient is on immunosuppressive medication). -We will attempt to collect a stool sample from his ostomy bag in order to send for stool PCR -GI specialist to see in the morning * Please note, patient's outpatient GI doctor is Dr. Jemal Esquivel of [facility] # Tachycardia, Chills without fever. Present on admission -Likely related to the above, and we will manage as noted above -Continue to follow vital signs # Headache, acute (onset following third dose of IV narcotic). Present on admission -Administer 1 time dose of IV Toradol (given patient's report of using NSAIDs for his headaches at home. * Will significantly limit further use of NSAIDs given his underlying Crohn's disease, and borderline creatinine # Elevated lactic acid which resolved with fluid administration. Present on admission -We will repeat lactic acid in the morning with a.m. labs PRN MEDICATIONS - Acetaminophen as needed for mild pain/fever/headache - Bowel regimen as needed - Antiemetic as needed Patient is admitted under inpatient status with expected length of stay greater than 2 midnights due to severity of presenting symptoms, risk of adverse event, and complexity of treatment plan. Pain Evaluation: Adequate Pain Control GI Prophylaxis: Proton Pump Inhibitor VTE Prophylaxis: Sub-Q Heparin (Unfractionated) Resuscitation Status: CPR: Attempt Resuscitation Attending Statement The patient was seen and examined together with Dr. Cruz on 08/11 and I agree with the history, exam and plan as outlined in the note above. copies to: Ricki Rutledge MD, Collin T DO Aug 11, 2016 02:08 Houston Charles MD Aug 11, 2016 04:42
[2016-08-11] MEDS ORDERED: VENL-57 PO (02:15)
--- NOTE | 2016-08-11 03:16 | NUR ---
Admit to 1026 Arrived from ED at 0125, transferred self to bed. Denies significant abdominal pain, Toradol given for headache. Mild nausea. Ileostomy patent, pt provides all care himself. Ambulates to BR with SBA, weak and slightly shaky on feet; using call light appropriately, reminded to always call before getting up, urinal left within reach at bedside. Oriented to hospital routines, plan of care, hourly rounding ongoing.
[2016-08-11] MEDS: Pantoprazole 40 mg ER24 Tablet PO SCH ×2 (04:43→08:47)
[2016-08-11 05:15] LABS: BASOPHILS % (AUTO) 0.4 % (0-3); EOSINOPHILS % (AUTO) 0.8 % (0-5); MONOCYTES % (AUTO) 10.7 % (4-12); Mean Corpuscular Hemoglobin 29.7 pg (27.0-35.0); Mean Corpuscular Volume 88.2 fL (81-100); NEUTROPHILS % (AUTO) 68.3 % (40-74); Platelet Count 126 bil/L (150-400)
[2016-08-11] MEDS: Heparin 5,000 Unit/mL Inj SUBQ SCH ×2 (08:47→16:37)
[2016-08-11] MEDS: Potassium Chloride 20 mEq SR Tablet PO SCH ×2 (08:48→20:00)
[2016-08-11] MEDS: Fluticasone 0.05% 15 Spray/2 Gm 16 Gm Nasal Spray NOSTRIL SCH ×2 (11:07→20:03)
[2016-08-11] MEDS: Ondansetron 2 mg/mL 2 mL Inj IVPUSH PRN (13:20)
[2016-08-11] MEDS: HYDROmorphone 1 mg/mL Inj IVPUSH PRN (13:21)
[2016-08-11] MEDS ORDERED: Sodium Chloride LOK Flush 10 mL Syringe IVFLUSH PRN ×2 (13:40)
[2016-08-11] MEDS ORDERED: HepLOK Flush 100 unit/mL 5 mL Inj IVFLUSH PRN (13:40)
--- NOTE | 2016-08-11 15:29 | NUR ---
Social Work Screen Note: EMR reviewed. Patient is a 55 year old male admitted on 07/2416 for chrons with intractable pain. Patient resides in [facility] with . Patient Payer as [employer]. Patient is status post colectomy with ileostomy. Patient PCP as MD Rutledge. Patient independent with needs and ambulating. SW to follow for rule out of HHC at discharge. SW to follow. PLAn: Home with pending clinical course. Possible rule out for HHC at discharge Nazia GALLOWAY
[2016-08-11] MEDS ORDERED: 0.9% Sodium Chloride 500 ML IV ONE ×2 (16:05)
--- NOTE | 2016-08-11 17:26 | PCM.PNMED ---
Subjective Date of Service Aug 11, 2016 Subjective Patient feeling chilled and having bilateral shoulder pain and jaw pain. He also notes a sore throat. GI Was Concerned That He Has a Source of Possible Infection Rather Than a Flare of Crohn's Disease. Patient Has Not Vomited since When He Was in the Emergency Room. He Notes That He Does Not Have a Cough. His Headache Is Mild. His Neck Is Not Stiff. He Does Continue to Have Some Abdominal Pain. He Has Been Having Low-Grade Fevers His Temps Have Ranged Anywhere from 37 up to 38.1. Concern Is Also That He Has Been on Immunosuppressant Therapy with Remicade and Azathioprine for His Crohn's Disease. Exam Vital Signs Vital Sign - Last Date Time Temp Pulse Resp B/P Pulse Ox O2 Delivery O2 Flow Rate FiO2 08/11/16 15:36 37.2 103 97/61 08/11/16 14:17 20 93 Room Air Intake and Output 08/10/16 08/10/16 08/11/16 Cumulative From/Thru 15:00 23:00 07:00 08/10/16 18:44 - 08/11/16 05:56 Intake Total 676 ml 676 ml Output Total 500 ml 500 ml Balance 176 ml 176 ml Intake Oral 200 ml 200 ml IV Total 476 ml 476 ml Output Urine Total 500 ml 500 ml Exam Head: Normocephalic atraumatic Neck: No adenopathy noted he is tender over the bilateral sternocleidomastoid area. He also has some tenderness over his mandibular angle and TMJ bilaterally. No tenderness palpation over the posterior neck and no nuchal rigidity noted. Mouth: Posterior pharynx looks okay but he finds it difficult to open up his mouth due to the bilateral TMJ pain. Chest: clear to auscultation Abdomen: Soft there is some mild diffuse tenderness Neuro: Alert and oriented 3, no focal deficits, motor strength is intact bilaterally Lab and Diagnostics Result Diagram: 08/11/165 08/11/16444 Microbiology No micro-studies at this time, but please note that stool PCR has been ordered. X-Rays, CTs and MRIs Date of Service: 08/10/162102 PROCEDURE: CT ABDOMEN AND PELVIS WITH CONTRAST (PNL-7102) IMPRESSION: 1. Surgical changes reflecting colectomy as well as lower quadrant osteopenia there is a questionable appearance of thickening within small bowel loops in the left hemiabdomen without appreciable surrounding inflammatory change. This could be reflective of early changes of inflammation related to Crohn's disease. 2. Distal esophageal thickening traversing the gastroesophageal junction with small hiatal hernia. Could relate to esophagitis. It is unchanged from prior exam, but mildly more prominent compared to prior exams dated 07/23/13. Recommend interval followup as indicated. Dictated by: Francheska Mills M.D. on 08/10/2016 at 21:46 12-lead ECG Sinus tachycardia, but otherwise unremarkable. Cardiac Echo Impressions Echocardiogram 07/20/15 was unremarkable. Cardiac cath in 2007 was unremarkable Assessment & Plan 55-year-old gentleman with history of Crohn's (currently on Remicade) status post colectomy with ileostomy who presents three-day complaint of increased nausea and vomiting associated with decreased by mouth intake, and increased bilateral lower abdominal cramping associated with increased ostomy output. # Crohn's disease, possible flare (please note patient is on Remicade). Present on admission -Abdominal pain, chills, malaise, N/V. -No indication of toxic megacolon or stricture induced bowel obstruction on CT -CT does demonstrate possible wall thickening in the small bowel suggestive of colitis -ER physician discussed case with GI specialist, and recommended fluids overnight and avoiding steroids. -Gentle IV fluids overnight, and will add clear liquid diet (as nausea and vomiting improve, consider discontinuing IV fluids) -We will provide DVT prophylaxis with heparin subcutaneously (given increased risk of thromboembolic events during flare) -Pain control with IV narcotic until nausea and vomiting is better controlled -Antiemetic -Differential includes: Infectious colitis (given increased ostomy output, patient is on immunosuppressive medication). -We will attempt to collect a stool sample from his ostomy bag in order to send for stool PCR -GI specialist to see in the morning * Please note, patient's outpatient GI doctor is Dr. Jemal Esquivel of [facility] # Tachycardia, Chills without fever. Present on admission -Likely related to the above, and we will manage as noted above -Continue to follow vital signs # Headache, acute (onset following third dose of IV narcotic). Present on admission -Administer 1 time dose of IV Toradol (given patient's report of using NSAIDs for his headaches at home. * Will significantly limit further use of NSAIDs given his underlying Crohn's disease, and borderline creatinine # Elevated lactic acid which resolved with fluid administration. Present on admission -We will repeat lactic acid in the morning with a.m. labs # Possible infectious process/sepsis in patient with immunosuppression therapy for Crohn's disease Patient does not have elevated white count but may be related to immunosuppressive therapy. Check blood cultures 21 from peripheral and one from port and will repeat if temperatures greater than 38.5 Urine analysis was negative upon admission Check CPK Check CT of head and neck soft tissue without contrast Initiate IV antibiotics for sepsis of unknown etiology which will be IV Zosyn and IV vancomycin Check chest x-ray two-view PRN MEDICATIONS - Acetaminophen as needed for mild pain/fever/headache - Bowel regimen as needed - Antiemetic as needed Patient is admitted under inpatient status with expected length of stay greater than 2 midnights due to severity of presenting symptoms, risk of adverse event, and complexity of treatment plan. GI Prophylaxis: Proton Pump Inhibitor VTE Prophylaxis: Sub-Q Heparin (Unfractionated) VTE Mechanical Devices: Intermittant Pneumatic CD Resuscitation Status: CPR: Attempt Resuscitation Time spent 40 minutes Nayeli Rod MD Aug 11, 2016 17:26
--- NOTE | 2016-08-11 17:42 | NUR ---
Ativan Ativan 0.5mg IVP given as verbal order from Dr. Rod for anxiety. When I tried to scan it kept giving me an error message. 1.5mg ivp wasted with yee ramírez rn and 0.5mg ivp administered to pt taran heath rn was witness to this. Care conts
--- NOTE | 2016-08-11 18:43 | NUR ---
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 Cook page to hospitalist re: this - order for 650mg PO Tylenol; Dose given. On reassessment, pt denying headache, Tb still elevated with min effect; TB 37.3. Continued to check and pt eventually to Tb of 98.9F. Mobility: Throughout course of shift, pt becoming more rigid and stiff with movement. By afternoon, pt unable to fully open mouth for Tb check. Arms rigid and difficult to move. Is ambulatory though. Left left behind the knee pain present - US neg for DVT. Hypotension: At 1400, VS revealed hypotensive pt at 80/60s. Verbal for 500ml NS bolus over 1hr. Reassess BP: 90/tmze25o. Additional 500mL NS bolus given over two hours. Pt tolerated fluids but is now starting to reveal puffy. On reassess, BP normalized, but TB elevated at 102.9 at 1900. Xray: Off unit to Xray at 1700. left unit via w/c. returned to unit at ~1710. CT: Pt off unit to CT at 1910. A&OX3, HERNANDEZ - gen weakness, Received 650mg PO Tylenol prior to leaving unit, left via w/c, tele on - tech aware of transfer, IVF infusing, returned to unit at 1923.
[2016-08-11] MEDS ORDERED: Vancomycin Inj 1,000 MG in IV Premix 1 EACH IV ONE (18:45)
--- NOTE | 2016-08-11 18:59 | DRSVH ---
PROCEDURE: X-RAY CHEST, TWO VIEWS ([id number]) INDICATIONS: Fever TECHNIQUE: 2 views of the chest were acquired. COMPARISON: Located Within [facility], CR, XR CHEST 1VW (PORTABLE), 07/04/2016, 15:10. FINDINGS: Surgical changes and devices: None. Lungs and pleura: No pleural effusions or pneumothorax. There is some streaky disease at the left sohail ng base likely subsegmental atelectasis. The lungs are otherwise considered clear. Mediastinum: Mediastinal contours are normal. Heart size is normal. Bones and chest wall: No suspicious bony abnormalities. Soft tissues appear unremarkable. IMPRESSION: Subsegmental atelectasis at the left base thought to be present rather than pneumonia whi ch is the differential. Dictated by: Sourav Manzano M.D. on 08/11/2016 at 18:44 Approved by: Sourav Manzano M.D. on 08/11/2016 at 18:57
--- NOTE | 2016-08-11 19:01 | DRSVH ---
PROCEDURE: US VEINOUS LEG DUPLEX UNILATERAL, LEFT INDICATIONS: left posterior calf pain TECHNIQUE: Real-time imaging, as well as color and pulse Doppler interrogation, were performed of the lower extr emity deep veins from the inguinal ligament to the popliteal fossa. COMPARISON: None. FINDINGS: The deep veins are normally compressible, and free of intraluminal thrombus. Color and pu lse Doppler demonstrate normal phasic intraluminal flow. There is normal augmentation response to di stal compression maneuver. IMPRESSION: 1. No evidence for deep venous thrombosis is found in the left lower extremity with this duplex venou s Doppler study. No evidence for Bee's cyst is seen as well posterior to the left knee. Dictated by: Sourav Manzano M.D. on 08/11/2016 at 18:59 Approved by: Sourav Manzano M.D. on 08/11/2016 at 18:59
--- NOTE | 2016-08-11 19:48 | PCM.CHPMED ---
Subjective Date of Service: Aug 11, 2016 Primary Physician: Admitting Physician: Houston Charles MD Primary Care Physician: Ricki Rutledge MD Attending Physician: Houston Charles MD Chief Complaint: Chief Complaint: GI consult note: Abdominal pain History of Present Illness: This is a 55-year-old male with history significant for Crohn's disease who presents with abdominal pain. The patient is followed by [facility] gastroenterology clinic. He has a 30 year history of Crohn's disease and is status post colectomy with ileostomy around 1989. He states that his Crohn's disease was under control until 3 years ago when he began having frequent flares. In the past he has failed Humira, azathioprine, methotrexate, vedolizumab, ustekinumab, and prednisone. 6 months ago he was on infliximab but stopped this as well. As he is mostly out of choices for treatment his ski technician recommended he go back on remicade (infliximab) . He has his first dose on 08/01/2016 and had a second scheduled for 2016. Of note, the patient has chronic vomiting and chronic hypovolemia with port placement for fluids for which he receives 10 L of fluids per week. On 08/10/2016 he began to experience a self described Crohn's flare. He states these flares happen every few months and are associated with increased nausea and vomiting, bloody and frequent ostomy output, and fatigue. He also was experiencing diffuse abdominal pain that was worst around his ostomy site. He states that when these do occur he switches his diet from soft to liquid, and takes oxycodone and Tylenol alternating which usually relieves the symptoms. When the pain began on 08/10/2016 he states that the pain and vomiting were so severe that he came in emergency department. When he arrived at the emergency department he describes shaking and chills. While in the hospital his MAXIMUM TEMPERATURE was 38.1 at 11:30am on 08/11/2016. In the ER he was given 2 L of normal saline, hydromorphone, Zofran with good symptomatic relief. He had elevated lactic acid of 1.7. PCR stool panel showed no abnormalities. The addended CT scan showed no active inflammation involving bowel loops and no evidence of fistula formation. Currently, the patient states that he is much improved. His abdominal pain has decreased. His nausea and vomiting have decreased. His ostomy output has decreased and is no longer bloody. He is still experiencing chills. The patient states that nursing did report a hypotensive episode with blood pressure 80/40 and he is currently receiving fluids for this. Of particular concern the patient is reporting new onset headaches as well as photophobia. Review of Systems: A comprehensive review of systems was conducted with the patient and found to be negative except as above in the History of Present Illness. PMH Past Medical History Crohn's disease Asthma GERD Hypertension Depression History of DVT and PE in 2014 Chronic headaches History of hepatitis C which was successfully treated From the [facility] gastroenterology notes: 01/17/2016 MRE: Large hiatal hernia, erythematous gastropathy with biopsies taken. Solid debris of vegetable matter in the second portion of duodenum obscuring visualization and precluding further advancement of the scope. Otherwise normal duodenum biopsies taken. 01/21/2016 colonoscopy: Severely active Crohn's disease in the distal 10 cm of the ileum. Mild inflammation with interval improvement proximal to this. Surgical History Hernia repairs as a young child Cervical laminectomy with fusion Total colectomy with ileostomy in 1989 Appendectomy Cholecystectomy Lysis of adhesions in 2007 Tonsillectomy and adenoidectomy Home Medications azathioprine 50 mg tablet take 2 tablet by ORAL route every day cane regular cane cetirizine 10 mg tablet take 1 tablet by oral route every day clotrimazole 1 % topical cream apply by topical route 2 times every day to the affected and surrounding areas of skin in the morning and evening Daily Vitamin tablet take 1 tablet by oral route 3 days per week diphenoxylate-atropine 2.5 mg-0.025 mg tablet 1-2 tab 3 time a day prn Epipen 2-Jeyson take as needed Flonase Allergy Relief 50 mcg/actuation nasal spray,suspension inhale 2 spray by intranasal route every day in each nostril omeprazole 40 mg capsule,delayed release TAKE 1 CAPSULE DAILY BEFORE A MEAL FOR ACID REFLUX ondansetron 4 mg disintegrating tablet take 1 Tablet by oral route every [address] on top of the tongue where it will dissolve, then swallow as needed. oxycodone 5 mg tablet take 1 tablet by ORAL route every 6 hours as needed for pain potassium chloride ER 20 mEq tablet,extended release take 1 tablet by oral route 2 times every day with food triamcinolone acetonide 0.1 % topical cream apply by topical route 2 times every day a thin layer to the affected area(s) venlafaxine ER 37.5 mg capsule,extended release 24 hr TAKE ONE CAPSULE BY MOUTH DAILY WITH FOOD. Vitamin B-12 2,500 mcg sublingual tablet take 1 tablet SL daily Vitamin D3 2,000 unit capsule take 2 capsules orally daily. zinc 50 mg tablet 2 tab a day Allergies: Coded Allergies: Sulfa (Sulfonamide Antibiotics) (Verified Allergy, Intermediate, rash, ) palpitations and flushing Family History Family History Brother myocardial infarction, muscular dystrophy Brother with gastric cancer Father of AIDS Mother colon cancer at 51, emphysema, depression Social History Hx Alcohol Use: NoHx Substance Use: Yes (quit 1984-)Hx Tobacco Use: No Smoking Status: Never Smoker Living Arrangement: with Family (lives with his locally) Additional Information Patient quit drinking one year ago and was an alcoholic. Exam Vital Signs Vital Sign - Last Date Time Temp Pulse Resp B/P Pulse Ox O2 Delivery O2 Flow Rate FiO2 08/11/16 14:17 37.3 115 20 80/60 93 Room Air Intake and Output 08/10/16 08/10/16 08/11/16 Cumulative From/Thru 15:00 23:00 07:00 08/10/16 18:44 - 08/11/16 05:56 Intake Total 676 ml 676 ml Output Total 500 ml 500 ml Balance 176 ml 176 ml Intake Oral 200 ml 200 ml IV Total 476 ml 476 ml Output Urine Total 500 ml 500 ml Additional Information: General: No acute distress, appropriately interactive HEENT: Normocephalic, atraumatic. External ears without defect. Pupils equal, round, and reactive to light and accommodation. Anicteric sclerae, moist conjunctivae, and no lid lag. Oropharynx free of erythema and cobble stoning with moist mucosa. Neck: Supple with full range of motion. No jugular venous distension. No bruits. No lymphadenopathy or thyromegaly. Cardiovascular: Regular rate and rhythm with no murmurs, rubs, or gallops appreciated Pulmonary: Clear to auscultation bilaterally with no crackles, wheezes, or rhonchi. Normal respiratory effort with no use of accessory muscles. Abdomen: Bowel tones present. Soft. Abdomen is tender (worst around ostomy). No rebound or guarding. No hepatosplenomegaly or masses appreciated. Extremities: No clubbing, cyanosis. Trace edema present. Skin: Normal temperature, turgor, and texture; no rash, ulcers, or subcutaneous nodules appreciated. Right chest port present without surrounding erythema. Neurological: Cranial nerves grossly intact. Normal muscle strength, tone, and bulk. Reflexes, coordination, and sensory function within normal limits. No known gait impairment. Psychiatric: Normal mood and affect. Lab and Diagnostics Result Diagram: 08/11/1644408/11/16444 X-Rays, CTs and MRIs CT of the abdomen and pelvis with contrast on 08/11/2016: ADDENDUM: At the request of the gastroenterology consulting physician I reviewed the imaging studies from the past and the current study, and in my opinion there is no active inflammation involving bowel loops and no evidence of fistula formation. No free fluid is found, no abscess is suspected. This study was performed without oral contrast, which does mildly limit the quality of the examination but intravenous contrast was utilized. In my opinion and repeat CT scanning with oral contrast, however, is not necessary. Dictated by: Darien Lowry M.D. on 08/11/2016 at 12:18 Assessment & Plan Assessment This is a 55-year-old male with past medical history significant for Crohn's disease who has been treated with and failed multiple medications in the past for his Crohn's. He is currently on Remicade with his initial dose being given on 08/01/2016 CT of the abdomen and pelvis showed no inflammation involving bowel loops and no evidence of fistula formation. The patient states that this feels like past Crohn's flares. He usually treats hs Crohn's flares with alternating opiates and Tylenol. He states that since arriving at the hospital he feels much improved but does still have chills. He was febrile this afternoon with a temperature of 38.1 Celsius. We do not have a source of this fever but patient does have a port. Of concern the patient has a headache and photophobia. This is concerning for meningitis as he is immunosuppressed on Remicade. We have asked the hospitalist, Dr. Rod, to consider a CT of the head followed by a lumbar puncture. The patient seems much improved since arriving to the hospital. Crohn's flare: -Patient is clinically improving. -Small bowel follow through ordered. Fever with unknown source of infection: -Febrile with temp of 38.1 Celsius. -Discussed need for CT followed by lumbar puncture with Dr. Rod. -CMV, HSV 1/2 IgG and IgM, urine culture, chest x-ray. blood culture, influenza. I saw and examined the patient with the resident Problems: Pain Evaluation: Adequate Pain Control GI Prophylaxis: Proton Pump Inhibitor VTE Prophylaxis: Sub-Q Heparin (Unfractionated) VTE Mechanical Devices: Intermittant Pneumatic CD Resuscitation Status: CPR: Attempt Resuscitation Esteban Rodriguez DO Aug 11, 2016 15:35 Adonis Rao MD Aug 13, 2016 15:45
[2016-08-11] MEDS: Venlafaxine XR 37.5 mg ER24 Capsule PO SCH (20:27)
[2016-08-11] MEDS: Piperacillin-Tazo 3.375 Gm Inj 3.375 GM in Dextrose 5% Minibag Plus 50 ML IV SCH (22:15)
[2016-08-12] VITALS (8 sets, daily range): BP systolic 96–117; BP diastolic 56–70; PULSE 76–118; RESP 16–20; O2SAT 93–97
[2016-08-12] MEDS: Heparin 5,000 Unit/mL Inj SUBQ SCH ×4 (00:24→23:58)
--- NOTE | 2016-08-12 03:44 | NUR ---
Update Pt. was experiencing severe anxiety earlier in shift. IV Ativan given for anxiety. After two times walking around in plata and taking HS meds, pt. fell asleep. Pt.'s temp has also been doing better this shift. Will continue to monitor vital signs.
[2016-08-12] MEDS: 0.9% Sodium Chloride 1,000 ML IV SCH ×4 (05:08→19:31)
[2016-08-12] MEDS: Piperacillin-Tazo 3.375 Gm Inj 3.375 GM in Dextrose 5% Minibag Plus 50 ML IV SCH ×3 (05:41→19:42)
--- NOTE | 2016-08-12 07:49 | PCM.PNMED ---
Subjective Date of Service Aug 12, 2016 Subjective Patient resting comfortably in bed today. He denies any headache at this time. Denies any abdominal pain denies any further vomiting. He does note that he had some sweats and chills yesterday evening. Denies cough or chest pain. Does note that shoulder and jaw pain is almost resolved. Exam Vital Signs Vital Sign - Last Date Time Temp Pulse Resp B/P Pulse Ox O2 Delivery O2 Flow Rate FiO2 08/12/16 05:45 37.5 95 20 117/70 96 Room Air Intake and Output 08/11/16 08/11/16 08/12/16 Cumulative From/Thru 14:59 22:59 06:59 08/10/16 18:44 - 08/12/16 06:16 Intake Total 3103 ml 1650 ml 5429 ml Output Total 1275 ml 1255 ml 3030 ml Balance 1828 ml 395 ml 2399 ml Intake Oral 1420 ml 400 ml 2020 ml IV Total 1683 ml 1250 ml 3409 ml Output Urine Total 525 ml 550 ml 1575 ml Stool Total 750 ml 705 ml 1455 ml # Voids 3 3 Exam Constitutional: Middle-aged man resting comfortably in bed. Head: Normocephalic atraumatic Neck: No tenderness no adenopathy Chest: Clear to auscultation Cor: Regular rate and rhythm S1-S2 without murmur Abdomen: Soft nontender bowel sounds present Extremities: No pedal edema Psych: Mood and affect appropriate Skin: No rashes noted Neuro: Alert and oriented 3, motor strength is intact bilaterally Lab and Diagnostics Result Diagram: 08/11/1644408/11/16444 Microbiology No micro-studies at this time, but please note that stool PCR has been ordered. X-Rays, CTs and MRIs Date of Service: 08/10/162102 PROCEDURE: CT ABDOMEN AND PELVIS WITH CONTRAST ([id number]) IMPRESSION: 1. Surgical changes reflecting colectomy as well as lower quadrant osteopenia there is a questionable appearance of thickening within small bowel loops in the left hemiabdomen without appreciable surrounding inflammatory change. This could be reflective of early changes of inflammation related to Crohn's disease. 2. Distal esophageal thickening traversing the gastroesophageal junction with small hiatal hernia. Could relate to esophagitis. It is unchanged from prior exam, but mildly more prominent compared to prior exams dated 07/23/13. Recommend interval followup as indicated. Dictated by: Francheska Mills M.D. on 08/10/2016 at 21:46 12-lead ECG Sinus tachycardia, but otherwise unremarkable. Cardiac Echo Impressions Echocardiogram 07/20/15 was unremarkable. Cardiac cath in 2007 was unremarkable Assessment & Plan 55-year-old gentleman with history of Crohn's (currently on Remicade) status post colectomy with ileostomy who presents three-day complaint of increased nausea and vomiting associated with decreased by mouth intake, and increased bilateral lower abdominal cramping associated with increased ostomy output. # Crohn's disease, possible flare (please note patient is on Remicade). Present on admission -Abdominal pain, chills, malaise, N/V. -No indication of toxic megacolon or stricture induced bowel obstruction on CT -CT does demonstrate possible wall thickening in the small bowel suggestive of colitis -ER physician discussed case with GI specialist, and recommended fluids overnight and avoiding steroids. -Gentle IV fluids overnight, and will add clear liquid diet (as nausea and vomiting improve, consider discontinuing IV fluids) -We will provide DVT prophylaxis with heparin subcutaneously (given increased risk of thromboembolic events during flare) -Pain control with IV narcotic until nausea and vomiting is better controlled -Antiemetic -Differential includes: Infectious colitis (given increased ostomy output, patient is on immunosuppressive medication). -We will attempt to collect a stool sample from his ostomy bag in order to send for stool PCR, this was done and stool PCR is negative -GI specialist saw yesterday * Please note, patient's outpatient GI doctor is Dr. Jemal Esquivel of [facility] # Tachycardia, Chills without fever. Present on admission -Likely related to the above, and we will manage as noted above -Continue to follow vital signs IV fluid hydration # Headache, acute (onset following third dose of IV narcotic). Present on admission -Administer 1 time dose of IV Toradol (given patient's report of using NSAIDs for his headaches at home. * Will significantly limit further use of NSAIDs given his underlying Crohn's disease, and borderline creatinine Currently asymptomatic # Elevated lactic acid which resolved with fluid administration. Present on admission -We will repeat lactic acid in the morning with a.m. labs # Possible infectious process/sepsis in patient with immunosuppression therapy for Crohn's disease Patient does not have elevated white count but may be related to immunosuppressive therapy. Check blood cultures 2 from peripheral and one from port and will repeat if temperatures greater than 38.5 Urine analysis was negative upon admission Check CPK which came back normal Check CT of head and neck soft tissue without contrast, unfortunately was not done yesterday as ordered so we will order stat today Initiate IV antibiotics for sepsis of unknown etiology which will be IV Zosyn and IV vancomycin Check chest x-ray two-view which reveals possible atelectasis versus pneumonia so will proceed with CT of chest without contrast to further elucidate At this point do not feel that lumbar puncture is warranted given the fact that he is not having a headache at this time has no nuchal rigidity. Do not feel that meningitis is in the differential at this time as source of fever and possible sepsis. Certainly we will have a low threshold if clinically things change. PRN MEDICATIONS - Acetaminophen as needed for mild pain/fever/headache - Bowel regimen as needed - Antiemetic as needed Patient is admitted under inpatient status with expected length of stay greater than 2 midnights due to severity of presenting symptoms, risk of adverse event, and complexity of treatment plan. GI Prophylaxis: Proton Pump Inhibitor VTE Prophylaxis: Sub-Q Heparin (Unfractionated) VTE Mechanical Devices: Intermittant Pneumatic CD Resuscitation Status: CPR: Attempt Resuscitation Time spent 30 minutes Nayeli Rod MD Aug 12, 2016 07:49
[2016-08-12] MEDS: Pantoprazole 40 mg ER24 Tablet PO SCH (09:10)
[2016-08-12] MEDS: Fluticasone 0.05% 15 Spray/2 Gm 16 Gm Nasal Spray NOSTRIL SCH ×2 (09:10→19:46)
[2016-08-12] MEDS: Potassium Chloride 20 mEq SR Tablet PO SCH ×2 (09:11→19:47)
[2016-08-12 09:41] LABS: BASOPHILS % (AUTO) 0.2 % (0-3); EOSINOPHILS % (AUTO) 0.8 % (0-5); MONOCYTES % (AUTO) 4.6 % (4-12); Mean Corpuscular Hemoglobin 30.1 pg (27.0-35.0); Mean Corpuscular Volume 86.2 fL (81-100); NEUTROPHILS % (AUTO) 78.2 % (40-74); Platelet Count 116 bil/L (150-400)
--- NOTE | 2016-08-12 09:45 | PCM.PNMED ---
Subjective Date of Service Aug 12, 2016 Subjective Patient feels better today. His muscle aches has improved significantly. His abdominal pain has not improved significantly. His ostomy output is now back to baseline. He has no photophobia. He essentially does not have any headaches anymore. Exam Vital Signs Vital Sign - Last Date Time Temp Pulse Resp B/P Pulse Ox O2 Delivery O2 Flow Rate FiO2 08/12/16 09:01 112 08/12/16 05:45 37.5 20 117/70 96 Room Air Intake and Output 08/11/16 08/11/16 08/12/16 Cumulative From/Thru 15:00 23:00 07:00 08/10/16 18:44 - 08/12/16 06:16 Intake Total 3103 ml 1650 ml 5429 ml Output Total 1275 ml 1255 ml 3030 ml Balance 1828 ml 395 ml 2399 ml Intake Oral 1420 ml 400 ml 2020 ml IV Total 1683 ml 1250 ml 3409 ml Output Urine Total 525 ml 550 ml 1575 ml Stool Total 750 ml 705 ml 1455 ml # Voids 3 3 Exam Patient is alert and oriented 3 No nuchal rigidity Head and neck no icterus Lungs clear Cardiovascular regular rate and rhythm, normal S1 and S2 Abdomen soft minimal tenderness which is a significant improvement from yesterday nondistended with normoactive bowel sounds no guarding rebound or firmness Skin shows no jaundice Extremities no pitting edema of Ankles Lab and Diagnostics Result Diagram: 08/11/16 0445 08/11/16 0445 Microbiology Multiple organism has been negative from's stool PCR Blood culture negative in the past 24 hours. X-Rays, CTs and MRIs Date of Service: 08/10/162102 PROCEDURE: CT ABDOMEN AND PELVIS WITH CONTRAST ([id number]) IMPRESSION: 1. Surgical changes reflecting colectomy as well as lower quadrant osteopenia there is a questionable appearance of thickening within small bowel loops in the left hemiabdomen without appreciable surrounding inflammatory change. This could be reflective of early changes of inflammation related to Crohn's disease. 2. Distal esophageal thickening traversing the gastroesophageal junction with small hiatal hernia. Could relate to esophagitis. It is unchanged from prior exam, but mildly more prominent compared to prior exams dated 07/23/13. Recommend interval followup as indicated. Dictated by: Francheska Mills M.D. on 08/10/2016 at 21:46 12-lead ECG Sinus tachycardia, but otherwise unremarkable. Cardiac Echo Impressions Echocardiogram 07/20/15 was unremarkable. Cardiac cath in 2007 was unremarkable Assessment & Plan 55-year-old gentleman with history of Crohn's (currently on Remicade) status post colectomy with ileostomy who presents three-day complaint of increased nausea and vomiting associated with decreased by mouth intake, and increased bilateral lower abdominal cramping associated with increased ostomy output. He also spiked a fever yesterday but been afebrile since broad-spectrum antibiotic coverage. His muscle ache is better he feels more energetic she essentially has no more headaches he has no photophobia. He is more active and his ostomy output is back to baseline. He has minimal abdominal pain at this point. An abdominal examination is benign. # Crohn's disease - his Crohn's disease is essentially baseline. I am not completely convinced that she was flaring from Crohn's disease. I suspect he has an infection on top of his uncontrolled Crohn's. He may have esophagitis. However he has no reflux symptoms. When this is all over, he will need an upper endoscopy however this can be done that at the [facility] gastroenterology service. He is due for Remicade next week however we should hold off on this until we have his infection under control. For now because of his immunosuppression history, atypical organism is high in the list as a cause of his problem. Dr. Jemal Esquivel of [facility] is his supervisor elementary education. GI Prophylaxis: Proton Pump Inhibitor VTE Prophylaxis: Sub-Q Heparin (Unfractionated) VTE Mechanical Devices: Intermittant Pneumatic CD Resuscitation Status: CPR: Attempt Resuscitation Adonis Rao MD Aug 12, 2016 09:45
--- NOTE | 2016-08-12 10:55 | DRSVH ---
PROCEDURE: CT BRAIN WITHOUT CONTRAST ([id number]) INDICATIONS: pain TECHNIQUE: Noncontrast 4.5 mm thick angled axial sections acquired from the foramen magnum to the vertex, with c oronal reformats. COMPARISON: [facility], CT, CT BRAIN WO CON, 07/20/2015, 2:20. FINDINGS: Image quality: Excellent. CSF spaces: Basal cisterns are patent. No extra-axial fluid collections. Ventricles are normal in size and shape. Brain: No midline shift. No intracranial masses or hemorrhage. Martínez-white matter interface is norm al. Skull and face: Calvarium and visualized facial bones are intact, without suspicious lesions. Sinuses: Visualized sinuses and mastoids are clear. IMPRESSION: Normal examination. Dictated by: Draien Lowry M.D. on 08/12/2016 at 10:54 Approved by: Darien Lowry M.D. on 08/12/2016 at 10:55
--- NOTE | 2016-08-12 11:00 | NUR ---
Off Unit pt off unit to CT with this RN at 1030. A&Ox3, HERNANDEZ, IVF infusing to Port, Tele on - tech aware of transfer, Chart with pt, Left unit via w/c, Pain tolerable. Returned at ~1050.
--- NOTE | 2016-08-12 11:30 | DRSVH ---
PROCEDURE: CT NECK SOFT TISSUES WITH CONTRAST ([id number]) INDICATIONS: pain TECHNIQUE: After the administration of intravenous contrast, 3.0 mm axial sections acquired from the sella to th e aortic arch. Additional oblique axial 3.0 mm sections acquired through the pharynx. 3 mm thick co aguilar reformats were generated. For radiation dose reduction, the following was used: automated exp osure control. COMPARISON: None. FINDINGS: Image quality: Excellent. Lymph nodes: No enlarged lymph nodes seen throughout the neck. Vessels: Visualized vasculature appears patent. Neck spaces: The oropharynx, nasopharynx, and pharynx demonstrate no mucosal lesions. The vocal cor ds, false vocal cords, pyriform sinuses, epiglottis, vallecula, and tongue base all appear normal. E xtramucosal spaces appear unremarkable. Glands: The parotid and submandibular glands appear normal. Thyroid gland appears normal. Miscellaneous: Visualized brain and orbits appear normal. Lung apices appear clear. Superficial so ft tissues appear normal. Bones: No suspicious bony lesions. Visualized sinuses and mastoids appear unremarkable. IMPRESSION: No trauma found, no inflammatory changes identified. Please note that the metallic artif act from the dental work present but does mildly degrade quality of visualization along the mandible and maxilla bones bilaterally. Note is made of a central line from Port-A-Cath on right sided approa ch extending in the normal position within the superior vena cava and also a partially visualized ant erior low cervical fusion plate. Dictated by: Darien Lowry M.D. on 08/12/2016 at 11:28 Approved by: Darien Lowry M.D. on 08/12/2016 at 11:30
--- NOTE | 2016-08-12 11:33 | DRSVH ---
PROCEDURE: CT CHEST WITH CONTRAST ([id number]) INDICATIONS: possible pneumonia,fevers TECHNIQUE: After the administration of intravenous contrast, 5 mm thick sections acquired from the pulmonary api yazan to the posterior costophrenic angles. 7 mm thick coronal and sagittal MIP reformats were acquire d. For radiation dose reduction, the following was used: automated exposure control, adjustment of mA and/or kV according to patient size. COMPARISON: [facility], CR, XR CHEST 2VW, 08/11/2016, 17:08. [facility], US, US VENOUS LEG DPLX UNI LT, 08/11/2016, 18:28. [facility], CT, CT BRAIN WO CON, 08/12/2016 , 10:32. [facility], CT, CT NECK SOFT TISSUE W CON, 08/12/2016, 10:36. [facility] , CT, CHEST WITH CONTRAST, 03/21/2011, 7:56. FINDINGS: Image quality: Excellent. Lungs and pleura: No definite acute air space opacities, although there is a small degree of strandi ng in each posterior lung base, left slightly greater than right, with an appearance more likely repr esent atelectasis than early pneumonia. No pleural effusions or pneumothorax. Central and periphera l airways are patent and normal in caliber. Mediastinum: Heart size is normal. No pericardial effusion. No mediastinal or hilar adenopathy by size criteria. Thoracic aorta and central pulmonary arteries are normal in size. Esophagus is rudy l in caliber. No hiatal hernia. Bones and chest wall: No suspicious bony lesions. No vertebral body compression fractures. No axil ankur or supraclavicular adenopathy by size criteria. Thyroid gland appears normal where well visuali zed. Central line in normal position from right sided approach, Port-A-Cath. Abdomen: Visualized upper abdominal solid organs appear normal. Upper abdominal bowel loops are nor mal in caliber. IMPRESSION: Minimal stranding each lung base, left greater than right, more likely to represent atele ctasis than pneumonia by appearance. Central line in normal position from right sided approach. Dictated by: Darien Lowry M.D. on 08/12/2016 at 11:30 Approved by: Darien Lowry M.D. on 08/12/2016 at 11:32
--- NOTE | 2016-08-12 18:20 | NUR ---
headache Pt c/o headache at ~1645, requested tylenol. 650mg PO given - reassessed pt stating "it's better" with no further complaints. Continues to be stiff if sitting/laying for too long, states improvement in comparison to yesterday afternoon. care continues.
[2016-08-12] MEDS: Ondansetron 2 mg/mL 2 mL Inj IVPUSH PRN (19:10)
[2016-08-12] MEDS: HYDROmorphone 1 mg/mL Inj IVPUSH PRN (19:10)
[2016-08-12] MEDS: Venlafaxine XR 37.5 mg ER24 Capsule PO SCH (19:47)
[2016-08-13] VITALS (8 sets, daily range): BP systolic 95–108; BP diastolic 59–68; PULSE 60–99; RESP 16–18; O2SAT 92–98
[2016-08-13] MEDS: 0.9% Sodium Chloride 1,000 ML IV SCH ×4 (02:42→23:58)
[2016-08-13] MEDS: Piperacillin-Tazo 3.375 Gm Inj 3.375 GM in Dextrose 5% Minibag Plus 50 ML IV SCH ×3 (04:45→20:36)
[2016-08-13 05:04] LABS: BASOPHILS % (AUTO) 0.3 % (0-3); EOSINOPHILS % (AUTO) 3.9 % (0-5); MONOCYTES % (AUTO) 6.2 % (4-12); Mean Corpuscular Hemoglobin 29.7 pg (27.0-35.0); Mean Corpuscular Volume 90.7 fL (81-100); NEUTROPHILS % (AUTO) 66.1 % (40-74); Platelet Count 90 bil/L (150-400)
--- NOTE | 2016-08-13 05:58 | NUR ---
GI; Pain: pt. denies nausea/vomiting pt. given tylenol for headache, pt. ambulated in hallway, no c/o muscle stiffness.
--- NOTE | 2016-08-13 07:19 | PCM.PNMED ---
Subjective Date of Service Aug 13, 2016 Subjective Patient resting comfortably this morning. He has no complaints. He is questioning whether we can progress his diet because his abdominal pain and loose stool is now much better. He denies any headaches today or yesterday. Notes that muscles are feeling better. His CPK and sedimentation rate are normal. However his CRP is elevated. He did have 1 blood culture come back positive for gram-positive cocci possible staph. It is in the aerobic bottle. It is unclear where that was drawn from whether it was peripheral or port. He has been afebrile over the past 24 hours. Exam Vital Signs Vital Sign - Last Date Time Temp Pulse Resp B/P Pulse Ox O2 Delivery O2 Flow Rate FiO2 08/13/16 06:52 99 08/13/16 04:24 37.6 18 106/64 92 Room Air Intake and Output 08/12/16 08/12/16 08/13/16 Cumulative From/Thru 14:59 22:59 06:59 08/10/16 18:44 - 08/13/16 06:09 Intake Total 3011 ml 2108 ml 65370 ml Output Total 1850 ml 1900 ml 6780 ml Balance 1161 ml 208 ml 3768 ml Intake Oral 1200 ml 300 ml 3520 ml IV Total 1811 ml 1808 ml 7028 ml Output Urine Total 600 ml 950 ml 3125 ml Stool Total 1250 ml 950 ml 3655 ml # Voids 3 Exam Constitutional: Middle-aged man resting comfortably in bed. Head: Normocephalic atraumatic Neck: No tenderness no adenopathy Chest: Clear to auscultation Cor: Regular rate and rhythm S1-S2 without murmur Abdomen: Soft nontender bowel sounds present Extremities: No pedal edema Psych: Mood and affect appropriate Skin: No rashes noted Neuro: Alert and oriented 3, motor strength is intact bilaterally Lab and Diagnostics Laboratory Tests 72 Hours Test 08/10/16 19:19 08/10/16 20:49 08/10/16 21:48 08/11/16 04:45 White Blood Count 9.3th/mm3 (3.8-10.1) 8.4th/mm3 (3.8-10.1) Red Blood Count 4.94mil/mm3 (4.40-5.80) 4.31mil/mm3 (4.40-5.80) Hemoglobin 14.8g/dL (13.8-17.2) 12.8g/dL (13.8-17.2) Hematocrit 43.1% (41.0-50.0) 38.0% (41.0-50.0) Mean Corpuscular Volume 87.2fL (81-100) 88.2fL (81-100) Mean Corpuscular Hemoglobin 30.0pg (27.0-35.0) 29.7pg (27.0-35.0) Mean Corpuscular Hemoglobin Concent 34.3% (32.0-37.0) 33.7% (32.0-37.0) Red Cell Distribution Width 13.8% (12.3-15.4) 14.2% (12.3-15.4) Platelet Count 152bil/L (150-400) 126bil/L (150-400) Neutrophils (%) (Auto) 52.5% (40-74) 68.3% (40-74) Lymphocytes (%) (Auto) 31.1% (14-46) 19.4% (14-46) Monocytes (%) (Auto) 11.2% (4-12) 10.7% (4-12) Eosinophils (%) (Auto) 4.4% (0-5) 0.8% (0-5) Basophils (%) (Auto) 0.5% (0-3) 0.4% (0-3) Prothrombin Time 10.4sec (8.1-12.5) Prothromb Time International Ratio 0.97ratio Sodium Level 139mEq/L (134-144) 139mEq/L (134-144) Potassium Level 3.7mEq/L (3.5-5.2) 3.8mEq/L (3.5-5.2) Chloride Level 99mEq/L (97-108) 101mEq/L (97-108) Carbon Dioxide Level 24mmol/L (18-29) 25mmol/L (18-29) Blood Urea Nitrogen 13mg/dL (6-24) 12mg/dL (6-24) Creatinine 1.23mg/dL (0.76-1.27) 1.35mg/dL (0.76-1.27) Estimat Glomerular Filtration Rate 65mL/min (>59) 58mL/min (>59) Glucose Level 99mg/dL (60-99) 117mg/dL (60-99) Lactic Acid Level 3.7mmol/L (0.4-2.0) 1.7mmol/L (0.4-2.0) 1.3mmol/L (0.4-2.0) Calcium Level 9.6mg/dL (8.5-10.1) 8.2mg/dL (8.5-10.1) Magnesium Level 1.9mg/dL (1.6-2.6) Total Bilirubin 0.8mg/dL (0.0-1.2) 1.1mg/dL (0.0-1.2) Aspartate Amino Transf (AST/SGOT) 28U/L (0-50) 27U/L (0-50) Alanine Aminotransferase (ALT/SGPT) 20U/L (0-44) 18U/L (0-44) Alkaline Phosphatase 104U/L (25-150) 85U/L (25-150) Total Protein 7.6g/dL (6.4-8.4) 6.2g/dL (6.4-8.4) Albumin 4.2g/dL (3.4-5.0) 3.8g/dL (3.4-5.0) Lipase 32U/L (13-60) Urine Color Yellow (YELLOW) Urine Appearance Hazy (CLEAR,HAZY) Urine pH 6.0 (5.0-8.0) Urine Specific Odin 1.025 (1.003-1.035) Urine Protein Negativemg/dL (NEG,TRACE) Urine Glucose (UA) Negativemg/dL (NEGATIVE) Urine Ketones Negativemg/dL (NEGATIVE) Urine Occult Blood Negative (NEGATIVE) Urine Nitrite Negative (NEGATIVE) Urine Bilirubin Negative (NEGATIVE) Urine Urobilinogen Normalmg/dL (NORMAL) Urine Leukocyte Esterase Negative (NEGATIVE) Urine RBC 0-2/hpf (0-2) Urine WBC 0-5/hpf (0-5) Urine Epithelial Cells Moderate/hpf (NONE-MOD) Urine Crystals None seen (NONE SEEN) Urine Bacteria Few/hpf (NONE-FEW) Urine Hyaline Casts None/lpf (NONE) Urine Granular Casts None seen (NONE SEEN) Urine Waxy Casts None seen (NONE SEEN) Urine Red Blood Cell Casts None seen (NONE SEEN) Urine White Blood Cell Casts None seen (NONE SEEN) Urine Mucus Present (None Seen) Urine Trichomonas None seen (NONE SEEN) Urine Yeast None (NONE SEEN) Urinalysis Comment None Urine Culture Reflexed Not indicated Test 08/11/16 16:40 08/11/16 17:42 08/12/16 04:53 08/12/16 09:00 Total Creatine Kinase 92U/L (21-232) Hold Urine Received (Received) White Blood Count 11.9th/mm3 (3.8-10.1) Red Blood Count 4.12mil/mm3 (4.40-5.80) Hemoglobin 12.4g/dL (13.8-17.2) Hematocrit 35.5% (41.0-50.0) Mean Corpuscular Volume 86.2fL (81-100) Mean Corpuscular Hemoglobin 30.1pg (27.0-35.0) Mean Corpuscular Hemoglobin Concent 34.9% (32.0-37.0) Red Cell Distribution Width 14.8% (12.3-15.4) Platelet Count 116bil/L (150-400) Neutrophils (%) (Auto) 78.2% (40-74) Lymphocytes (%) (Auto) 15.8% (14-46) Monocytes (%) (Auto) 4.6% (4-12) Eosinophils (%) (Auto) 0.8% (0-5) Basophils (%) (Auto) 0.2% (0-3) Erythrocyte Sedimentation Rate 25mm/hr (0-30) Sodium Level 137mEq/L (134-144) Potassium Level 3.9mEq/L (3.5-5.2) Chloride Level 101mEq/L (97-108) Carbon Dioxide Level 24mmol/L (18-29) Blood Urea Nitrogen 11mg/dL (6-24) Creatinine 1.31mg/dL (0.76-1.27) Estimat Glomerular Filtration Rate 60mL/min (>59) Glucose Level 126mg/dL (60-99) Calcium Level 7.9mg/dL (8.5-10.1) Total Bilirubin 2.7mg/dL (0.0-1.2) Aspartate Amino Transf (AST/SGOT) 29U/L (0-50) Alanine Aminotransferase (ALT/SGPT) 23U/L (0-44) Alkaline Phosphatase 74U/L (25-150) C-Reactive Protein 15.7mg/dL (0.0-0.5) Total Protein 6.2g/dL (6.4-8.4) Albumin 3.6g/dL (3.4-5.0) Test 08/13/16 04:45 White Blood Count 6.9th/mm3 (3.8-10.1) Red Blood Count 3.64mil/mm3 (4.40-5.80) Hemoglobin 10.8g/dL (13.8-17.2) Hematocrit 33.0% (41.0-50.0) Mean Corpuscular Volume 90.7fL (81-100) Mean Corpuscular Hemoglobin 29.7pg (27.0-35.0) Mean Corpuscular Hemoglobin Concent 32.7% (32.0-37.0) Red Cell Distribution Width 14.6% (12.3-15.4) Platelet Count 90bil/L (150-400) Neutrophils (%) (Auto) 66.1% (40-74) Lymphocytes (%) (Auto) 23.4% (14-46) Monocytes (%) (Auto) 6.2% (4-12) Eosinophils (%) (Auto) 3.9% (0-5) Basophils (%) (Auto) 0.3% (0-3) Sodium Level 139mEq/L (134-144) Potassium Level 3.7mEq/L (3.5-5.2) Chloride Level 102mEq/L (97-108) Carbon Dioxide Level 24mmol/L (18-29) Blood Urea Nitrogen 10mg/dL (6-24) Creatinine 1.32mg/dL (0.76-1.27) Estimat Glomerular Filtration Rate 60mL/min (>59) Glucose Level 93mg/dL (60-99) Calcium Level 7.5mg/dL (8.5-10.1) Total Bilirubin 1.4mg/dL (0.0-1.2) Aspartate Amino Transf (AST/SGOT) 24U/L (0-50) Alanine Aminotransferase (ALT/SGPT) 20U/L (0-44) Alkaline Phosphatase 65U/L (25-150) Total Protein 5.7g/dL (6.4-8.4) Albumin 3.2g/dL (3.4-5.0) Result Diagram: 08/13/1644408/13/16444 Microbiology Multiple organism has been negative from's stool PCR Blood culture negative in the past 24 hours. X-Rays, CTs and MRIs Date of Service: 08/10/162102 PROCEDURE: CT ABDOMEN AND PELVIS WITH CONTRAST ([id number]) IMPRESSION: 1. Surgical changes reflecting colectomy as well as lower quadrant osteopenia there is a questionable appearance of thickening within small bowel loops in the left hemiabdomen without appreciable surrounding inflammatory change. This could be reflective of early changes of inflammation related to Crohn's disease. 2. Distal esophageal thickening traversing the gastroesophageal junction with small hiatal hernia. Could relate to esophagitis. It is unchanged from prior exam, but mildly more prominent compared to prior exams dated 07/23/13. Recommend interval followup as indicated. Dictated by: Francheska Mills M.D. on 08/10/2016 at 21:46 PROCEDURE: CT CHEST WITH CONTRAST ([id number]) INDICATIONS: possible pneumonia,fevers TECHNIQUE: After the administration of intravenous contrast, 5 mm thick sections acquired from the pulmonary apices to the posterior costophrenic angles. 7 mm thick coronal and sagittal MIP reformats were acquired. For radiation dose reduction , the following was used: automated exposure control, adjustment of mA and/or kV according to patient size. COMPARISON: [facility], CR, XR CHEST 2VW, 08/11/2016, 17:08. [facility], US, US VENOUS LEG DPLX UNI LT, 08/11/2016, 18:28. [facility], CT, CT BRAIN WO CON, 08/12/2016, 10:32. [facility], CT, CT NECK SOFT TISSUE W CON, 08/12/2016, 10:36. [facility] [place] , CT, CHEST WITH CONTRAST, 03/21/2011, 7:56. FINDINGS: Image quality: Excellent. Lungs and pleura: No definite acute air space opacities, although there is a small degree of stranding in each posterior lung base, left slightly greater than right, with an appearance more likely represent atelectasis than early pneumonia. No pleural effusions or pneumothorax. Central and peripheral airways are patent and normal in caliber. Mediastinum: Heart size is normal. No pericardial effusion. No mediastinal or hilar adenopathy by size criteria. Thoracic aorta and central pulmonary arteries are normal in size. Esophagus is normal in caliber. No hiatal hernia. Bones and chest wall: No suspicious bony lesions. No vertebral body compression fractures. No axillary or supraclavicular adenopathy by size criteria. Thyroid gland appears normal where well visualized. Central line in normal position from right sided approach, Port-A-Cath. Abdomen: Visualized upper abdominal solid organs appear normal. Upper abdominal bowel loops are normal in caliber. IMPRESSION: Minimal stranding each lung base, left greater than right, more likely to represent atelectasis than pneumonia by appearance. Central line in normal position from right sided approach. Dictated by: Darien Lowry M.D. on 08/12/2016 at 11:30 Approved by: Darien Lowry M.D. on 08/12/2016 at 11:32 PROCEDURE: CT NECK SOFT TISSUES WITH CONTRAST ([id number]) INDICATIONS: pain TECHNIQUE: After the administration of intravenous contrast, 3.0 mm axial sections acquired from the sella to the aortic arch. Additional oblique axial 3.0 mm sections acquired through the pharynx. 3 mm thick coronal reformats were generated. For radiation dose reduction, the following was used: automated exposure control. COMPARISON: None. FINDINGS: Image quality: Excellent. Lymph nodes: No enlarged lymph nodes seen throughout the neck. Vessels: Visualized vasculature appears patent. Neck spaces: The oropharynx, nasopharynx, and pharynx demonstrate no mucosal lesions. The vocal cords, false vocal cords, pyriform sinuses, epiglottis, vallecula, and tongue base all appear normal. Extramucosal spaces appear unremarkable. Glands: The parotid and submandibular glands appear normal. Thyroid gland appears normal. Miscellaneous: Visualized brain and orbits appear normal. Lung apices appear clear. Superficial soft tissues appear normal. Bones: No suspicious bony lesions. Visualized sinuses and mastoids appear unremarkable. IMPRESSION: No trauma found, no inflammatory changes identified. Please note that the metallic artifact from the dental work present but does mildly degrade quality of visualization along the mandible and maxilla bones bilaterally. Note is made of a central line from Port-A-Cath on right sided approach extending in the normal position within the superior vena cava and also a partially visualized anterior low cervical fusion plate. Dictated by: Darien Lowry M.D. on 08/12/2016 at 11:28 Approved by: Darien Lowry M.D. on 08/12/2016 at 11:30 PROCEDURE: CT BRAIN WITHOUT CONTRAST ([id number]) INDICATIONS: pain TECHNIQUE: Noncontrast 4.5 mm thick angled axial sections acquired from the foramen magnum to the vertex, with coronal reformats. COMPARISON: [facility], CT, CT BRAIN WO CON, 07/20/2015, 2:20. FINDINGS: Image quality: Excellent. CSF spaces: Basal cisterns are patent. No extra-axial fluid collections. Ventricles are normal in size and shape. Brain: No midline shift. No intracranial masses or hemorrhage. Martínez-white matter interface is normal. Skull and face: Calvarium and visualized facial bones are intact, without suspicious lesions. Sinuses: Visualized sinuses and mastoids are clear. IMPRESSION: Normal examination. Dictated by: Darien Lowry M.D. on 08/12/2016 at 10:54 Approved by: Darien Lowry M.D. on 08/12/2016 at 10:55 12-lead ECG Sinus tachycardia, but otherwise unremarkable. Cardiac Echo Impressions Echocardiogram 07/20/15 was unremarkable. Cardiac cath in 2007 was unremarkable Assessment & Plan 55-year-old gentleman with history of Crohn's (currently on Remicade) status post colectomy with ileostomy who presents three-day complaint of increased nausea and vomiting associated with decreased by mouth intake, and increased bilateral lower abdominal cramping associated with increased ostomy output. # Crohn's disease, possible flare (please note patient is on Remicade). Present on admission -Abdominal pain, chills, malaise, N/V. -No indication of toxic megacolon or stricture induced bowel obstruction on CT -CT does demonstrate possible wall thickening in the small bowel suggestive of colitis -ER physician discussed case with GI specialist, and recommended fluids overnight and avoiding steroids. -Gentle IV fluids overnight, and will add clear liquid diet (as nausea and vomiting improve, consider discontinuing IV fluids) -We will provide DVT prophylaxis with heparin subcutaneously (given increased risk of thromboembolic events during flare) -Pain control with IV narcotic until nausea and vomiting is better controlled -Antiemetic -Differential includes: Infectious colitis (given increased ostomy output, patient is on immunosuppressive medication). -We will attempt to collect a stool sample from his ostomy bag in order to send for stool PCR, this was done and stool PCR is negative -GI specialist saw yesterday * Please note, patient's outpatient GI doctor is Dr. Jemal Esquivel of [facility] -Progress diet as tolerated # Tachycardia, Chills without fever. Present on admission -Likely related to the above, and we will manage as noted above -Continue to follow vital signs IV fluid hydration # Headache, acute (onset following third dose of IV narcotic). Present on admission -Administer 1 time dose of IV Toradol (given patient's report of using NSAIDs for his headaches at home. * Will significantly limit further use of NSAIDs given his underlying Crohn's disease, and borderline creatinine Currently asymptomatic # Elevated lactic acid which resolved with fluid administration. Present on admission -We will repeat lactic acid in the morning with a.m. labs # Possible infectious process/sepsis in patient with immunosuppression therapy for Crohn's disease Patient does not have elevated white count but may be related to immunosuppressive therapy. Check blood cultures 2 from peripheral and one from port and will repeat if temperatures greater than 38.5 Urine analysis was negative upon admission Check CPK which came back normal Check CT of head and neck soft tissue without contrast, unfortunately was not done yesterday as ordered so we will order stat today Initiate IV antibiotics for sepsis of unknown etiology which will be IV Zosyn and IV vancomycin Check chest x-ray two-view which reveals possible atelectasis versus pneumonia so will proceed with CT of chest without contrast to further elucidate At this point do not feel that lumbar puncture is warranted given the fact that he is not having a headache at this time has no nuchal rigidity. Do not feel that meningitis is in the differential at this time as source of fever and possible sepsis. Certainly we will have a low threshold if clinically things change. -Today on August 13,0ne aerobic bottle is growing a gram-positive cocci possible staph. This was drawn on August 10. There are 2 sets drawn and other vitals are negative. It is not labeled as to whether it was drawn from peripheral site or port. -For now will cover with IV Zosyn and IV vancomycin and await further sensitivities and identification. No clear source is evident clinically he is improving. PRN MEDICATIONS - Acetaminophen as needed for mild pain/fever/headache - Bowel regimen as needed - Antiemetic as needed Patient is admitted under inpatient status with expected length of stay greater than 2 midnights due to severity of presenting symptoms, risk of adverse event, and complexity of treatment plan. GI Prophylaxis: Proton Pump Inhibitor VTE Prophylaxis: Sub-Q Heparin (Unfractionated) VTE Mechanical Devices: Intermittant Pneumatic CD Resuscitation Status: CPR: Attempt Resuscitation Time spent 30 minutes Nayeli Rod MD GI Prophylaxis: Proton Pump Inhibitor VTE Prophylaxis: Sub-Q Heparin (Unfractionated) VTE Mechanical Devices: Intermittant Pneumatic CD Resuscitation Status: CPR: Attempt Resuscitation Time spent 30 minutes Nayeli Rod MD Aug 13, 2016 07:19
[2016-08-13] MEDS: Pantoprazole 40 mg ER24 Tablet PO SCH (09:17)
[2016-08-13] MEDS: Potassium Chloride 20 mEq SR Tablet PO SCH ×2 (09:18→20:36)
[2016-08-13] MEDS: Heparin 5,000 Unit/mL Inj SUBQ SCH ×2 (09:19→17:24)
[2016-08-13] MEDS: Fluticasone 0.05% 15 Spray/2 Gm 16 Gm Nasal Spray NOSTRIL SCH ×2 (09:23→20:35)
[2016-08-13] MEDS: HYDROmorphone 1 mg/mL Inj IVPUSH PRN ×2 (12:56→18:32)
[2016-08-13] MEDS: Ondansetron 2 mg/mL 2 mL Inj IVPUSH PRN (12:56)
--- NOTE | 2016-08-13 14:05 | PCM.PNMED ---
Subjective Date of Service Aug 13, 2016 Subjective Patient feels better than yesterday. He has less muscle ache no headaches no photophobia and more energy. He is MAXIMUM TEMPERATURE was 37.5. This is significantly better than yesterday. Essentially he was afebrile. Blood culture 1 gram-positive cocci. Exam Vital Signs Vital Sign - Last Date Time Temp Pulse Resp B/P Pulse Ox O2 Delivery O2 Flow Rate FiO2 08/13/16 11:51 36.8 84 16 97/59 96 Room Air Intake and Output 08/12/16 08/12/16 08/13/16 Cumulative From/Thru 15:00 23:00 07:00 08/10/16 18:44 - 08/13/16 06:09 Intake Total 3011 ml 2108 ml 25478 ml Output Total 1850 ml 1900 ml 6780 ml Balance 1161 ml 208 ml 3768 ml Intake Oral 1200 ml 300 ml 3520 ml IV Total 1811 ml 1808 ml 7028 ml Output Urine Total 600 ml 950 ml 3125 ml Stool Total 1250 ml 950 ml 3655 ml # Voids 3 Exam Physical examination: Patient is alert and oriented comfortable Head and neck no icterus Lungs clear Cardiovascular regular rate and rhythm, normal S1-S2 Abdomen soft nontender nondistended with normoactive bowel sounds Extremities no edema of Ankles Skin shows no jaundice Lab and Diagnostics Result Diagram: 08/13/1644408/13/16444 Microbiology Multiple organism has been negative from's stool PCR Blood culture negative in the past 24 hours. X-Rays, CTs and MRIs Date of Service: 08/10/162102 PROCEDURE: CT ABDOMEN AND PELVIS WITH CONTRAST ([id number]) IMPRESSION: 1. Surgical changes reflecting colectomy as well as lower quadrant osteopenia there is a questionable appearance of thickening within small bowel loops in the left hemiabdomen without appreciable surrounding inflammatory change. This could be reflective of early changes of inflammation related to Crohn's disease. 2. Distal esophageal thickening traversing the gastroesophageal junction with small hiatal hernia. Could relate to esophagitis. It is unchanged from prior exam, but mildly more prominent compared to prior exams dated 07/23/13. Recommend interval followup as indicated. Dictated by: Francheska Mills M.D. on 08/10/2016 at 21:46 PROCEDURE: CT CHEST WITH CONTRAST ([id number]) INDICATIONS: possible pneumonia,fevers TECHNIQUE: After the administration of intravenous contrast, 5 mm thick sections acquired from the pulmonary apices to the posterior costophrenic angles. 7 mm thick coronal and sagittal MIP reformats were acquired. For radiation dose reduction , the following was used: automated exposure control, adjustment of mA and/or kV according to patient size. COMPARISON: [facility], CR, XR CHEST 2VW, 08/11/2016, 17:08. [facility], US, US VENOUS LEG DPLX UNI LT, 08/11/2016, 18:28. [facility], CT, CT BRAIN WO CON, 08/12/2016, 10:32. [facility], CT, CT NECK SOFT TISSUE W CON, 08/12/2016, 10:36. [facility] , CT, CHEST WITH CONTRAST, 03/21/2011, 7:56. FINDINGS: Image quality: Excellent. Lungs and pleura: No definite acute air space opacities, although there is a small degree of stranding in each posterior lung base, left slightly greater than right, with an appearance more likely represent atelectasis than early pneumonia. No pleural effusions or pneumothorax. Central and peripheral airways are patent and normal in caliber. Mediastinum: Heart size is normal. No pericardial effusion. No mediastinal or hilar adenopathy by size criteria. Thoracic aorta and central pulmonary arteries are normal in size. Esophagus is normal in caliber. No hiatal hernia. Bones and chest wall: No suspicious bony lesions. No vertebral body compression fractures. No axillary or supraclavicular adenopathy by size criteria. Thyroid gland appears normal where well visualized. Central line in normal position from right sided approach, Port-A-Cath. Abdomen: Visualized upper abdominal solid organs appear normal. Upper abdominal bowel loops are normal in caliber. IMPRESSION: Minimal stranding each lung base, left greater than right, more likely to represent atelectasis than pneumonia by appearance. Central line in normal position from right sided approach. Dictated by: Darien Lowry M.D. on 08/12/2016 at 11:30 Approved by: Darien Lowry M.D. on 08/12/2016 at 11:32 PROCEDURE: CT NECK SOFT TISSUES WITH CONTRAST ([id number]) INDICATIONS: pain TECHNIQUE: After the administration of intravenous contrast, 3.0 mm axial sections acquired from the sella to the aortic arch. Additional oblique axial 3.0 mm sections acquired through the pharynx. 3 mm thick coronal reformats were generated. For radiation dose reduction, the following was used: automated exposure control. COMPARISON: None. FINDINGS: Image quality: Excellent. Lymph nodes: No enlarged lymph nodes seen throughout the neck. Vessels: Visualized vasculature appears patent. Neck spaces: The oropharynx, nasopharynx, and pharynx demonstrate no mucosal lesions. The vocal cords, false vocal cords, pyriform sinuses, epiglottis, vallecula, and tongue base all appear normal. Extramucosal spaces appear unremarkable. Glands: The parotid and submandibular glands appear normal. Thyroid gland appears normal. Miscellaneous: Visualized brain and orbits appear normal. Lung apices appear clear. Superficial soft tissues appear normal. Bones: No suspicious bony lesions. Visualized sinuses and mastoids appear unremarkable. IMPRESSION: No trauma found, no inflammatory changes identified. Please note that the metallic artifact from the dental work present but does mildly degrade quality of visualization along the mandible and maxilla bones bilaterally. Note is made of a central line from Port-A-Cath on right sided approach extending in the normal position within the superior vena cava and also a partially visualized anterior low cervical fusion plate. Dictated by: Darien Lowry M.D. on 08/12/2016 at 11:28 Approved by: Darien Lowry M.D. on 08/12/2016 at 11:30 PROCEDURE: CT BRAIN WITHOUT CONTRAST ([id number]) INDICATIONS: pain TECHNIQUE: Noncontrast 4.5 mm thick angled axial sections acquired from the foramen magnum to the vertex, with coronal reformats. COMPARISON: [facility], CT, CT BRAIN WO CON, 07/20/2015, 2:20. FINDINGS: Image quality: Excellent. CSF spaces: Basal cisterns are patent. No extra-axial fluid collections. Ventricles are normal in size and shape. Brain: No midline shift. No intracranial masses or hemorrhage. Martínez-white matter interface is normal. Skull and face: Calvarium and visualized facial bones are intact, without suspicious lesions. Sinuses: Visualized sinuses and mastoids are clear. IMPRESSION: Normal examination. Dictated by: Darien Lowry M.D. on 08/12/2016 at 10:54 Approved by: Darien Lowry M.D. on 08/12/2016 at 10:55 12-lead ECG Sinus tachycardia, but otherwise unremarkable. Cardiac Echo Impressions Echocardiogram 07/20/15 was unremarkable. Cardiac cath in 2007 was unremarkable Assessment & Plan 55-year-old gentleman with history of Crohn's (currently on Remicade) status post colectomy with ileostomy who presents three-day complaint of increased nausea and vomiting associated with decreased by mouth intake, and increased bilateral lower abdominal cramping associated with increased ostomy output. His doing better. Essentially he did not spike any fever since the antibiotic coverage. He has no abdominal pain. Ostomy output is again back to baseline. # Crohn's disease - his Crohn's disease is back to baseline. This is not a new flare of Crohn's disease. I suspect he has an infection on top of his uncontrolled or semi-controlled Crohn's. I would advance diet as tolerated to low residual. He may have esophagitis. However he has no reflux symptoms. When this is all over, he will need an upper endoscopy however this can be done that at the [facility] gastroenterology service. He is due for Remicade next week however we should hold off on this until we have his infection under control. For now because of his immunosuppression history, atypical organism is high in the list as a cause of his problem. I am aware of the blood culture that grew out positive. However wait for the final result. Dr. Jemal Esquivel of [facility] is his pediatric audiologist. Overall he seems doing a lot better. GI Prophylaxis: Proton Pump Inhibitor VTE Prophylaxis: Sub-Q Heparin (Unfractionated) VTE Mechanical Devices: Intermittant Pneumatic CD Resuscitation Status: CPR: Attempt Resuscitation Adonis Rao MD Aug 13, 2016 14:05
--- NOTE | 2016-08-13 18:27 | NUR ---
Abdominal pain/ambulation Patient alert and oriented x3, 97% on RA, Tele SR 80s-90s, BP within normal limits, afebrile, tolerating PO intake well with baseline mild nausea -- administered scheduled sublingual Zofran as well as 4mg IV x1, tolerating PO intake well. Patient reported 5/10 abdominal pain twice this shift, administered PRN IV Dilaudid -- patient would report pain as tolerable after administration. Patient up ambulating in hallway frequently throughout shift, tolerating well.
[2016-08-13] MEDS: Venlafaxine XR 37.5 mg ER24 Capsule PO SCH (21:44)
[2016-08-14] VITALS (8 sets, daily range): BP systolic 102–108; BP diastolic 55–69; PULSE 72–86; RESP 16–20; O2SAT 94–97
[2016-08-14] MEDS: Heparin 5,000 Unit/mL Inj SUBQ SCH ×3 (00:56→16:54)
--- NOTE | 2016-08-14 03:53 | NUR ---
Pain and activity tolerance: Patient requested no analgesics throughout shift. Frequently assessed for pain and patient stated that pain level was tolerable. Patient ambulated hallway twice throughout night and tolerated activity well. Patient denied nausea 6 hours after taking Zofran 4mg. Patient dropped urinal in bathroom but stated that the urinal was about half full when it was dropped. Assisted patient in putting on new non-skid socks.
[2016-08-14] MEDS: Piperacillin-Tazo 3.375 Gm Inj 3.375 GM in Dextrose 5% Minibag Plus 50 ML IV SCH ×3 (04:36→20:51)
[2016-08-14 06:19] LABS: BASOPHILS % (AUTO) 0.3 % (0-3); EOSINOPHILS % (AUTO) 7.4 % (0-5); MONOCYTES % (AUTO) 7.4 % (4-12); Mean Corpuscular Hemoglobin 29.8 pg (27.0-35.0); Mean Corpuscular Volume 90.9 fL (81-100); NEUTROPHILS % (AUTO) 56.7 % (40-74); Platelet Count 95 bil/L (150-400)
[2016-08-14] MEDS: 0.9% Sodium Chloride 1,000 ML IV SCH ×4 (06:58→20:48)
[2016-08-14] MEDS: Fluticasone 0.05% 15 Spray/2 Gm 16 Gm Nasal Spray NOSTRIL SCH ×2 (08:42→20:48)
[2016-08-14] MEDS: Pantoprazole 40 mg ER24 Tablet PO SCH (08:43)
[2016-08-14] MEDS: Potassium Chloride 20 mEq SR Tablet PO SCH ×2 (08:43→20:48)
--- NOTE | 2016-08-14 09:06 | NUR ---
Social Work- Readiness for Discharge Data: EMR reviewed. Pt is on day 3 of hospitalization for crohns with intractable pain per H&P. Pt is not medically stable at this time. SW spoke with patient at bedside to discuss discharge planning, SW role explained. Patient is status post colectomy with ileostomy. Per RN notes, patient has been independent in room. SW explained HH role. Pt is not homebound and does not meet HH criteria at this time. Pt to discharge home with family to transport via POV. SW wrote phone number and plan on whiteboard. Pt agreeable to plan. No anticipated discharge needs. SW continues to follow. Assessment: Pt who is independent at base. Plan: Pt does not meet HH homebound criteria. Pt agreeable to plan. No anticipated discharge needs. SW continues to follow. NILESH Augustin
[2016-08-14] MEDS: HYDROmorphone 1 mg/mL Inj IVPUSH PRN ×2 (13:51→17:54)
--- NOTE | 2016-08-14 15:13 | PCM.PNMED ---
Subjective Date of Service Aug 14, 2016 Subjective Patient notes that his appetite was very good yesterday ate a lot. Today he is feeling a little nauseous with eating. He had [place] toast for breakfast today and then a quesadilla. Has been ambulating the halls without any problems. Denies any sweats or chills. Patient does note that his stool output is back to usual. Exam Vital Signs Vital Sign - Last Date Time Temp Pulse Resp B/P Pulse Ox O2 Delivery O2 Flow Rate FiO2 08/14/16 11:23 36.6 82 18 107/68 95 Room Air Intake and Output 08/13/16 08/13/16 08/14/16 Cumulative From/Thru 14:59 22:59 06:59 08/10/16 18:44 - 08/14/16 06:50 Intake Total 2451 ml 2174 ml 36590 ml Output Total 2700 ml 2450 ml 51073 ml Balance -249 ml -276 ml 3243 ml Intake Oral 900 ml 400 ml 4820 ml IV Total 1551 ml 1774 ml 24726 ml Output Urine Total 1600 ml 1300 ml 6025 ml Stool Total 1100 ml 1150 ml 5905 ml # Voids 3 Exam Constitutional: Middle-aged male in no acute distress Head: Normocephalic atraumatic Chest: Clear to auscultation Cor: Regular rate and rhythm S1-S2 Abdomen: Soft mild tenderness in the left upper quadrant no rebound no guarding. Extremities: No pedal edema Lab and Diagnostics Laboratory Tests 72 Hours Test 08/11/16 16:40 08/11/16 17:42 08/12/16 04:53 08/12/16 09:00 Total Creatine Kinase 92U/L (21-232) Hold Urine Received (Received) White Blood Count 11.9th/mm3 (3.8-10.1) Red Blood Count 4.12mil/mm3 (4.40-5.80) Hemoglobin 12.4g/dL (13.8-17.2) Hematocrit 35.5% (41.0-50.0) Mean Corpuscular Volume 86.2fL (81-100) Mean Corpuscular Hemoglobin 30.1pg (27.0-35.0) Mean Corpuscular Hemoglobin Concent 34.9% (32.0-37.0) Red Cell Distribution Width 14.8% (12.3-15.4) Platelet Count 116bil/L (150-400) Neutrophils (%) (Auto) 78.2% (40-74) Lymphocytes (%) (Auto) 15.8% (14-46) Monocytes (%) (Auto) 4.6% (4-12) Eosinophils (%) (Auto) 0.8% (0-5) Basophils (%) (Auto) 0.2% (0-3) Erythrocyte Sedimentation Rate 25mm/hr (0-30) Sodium Level 137mEq/L (134-144) Potassium Level 3.9mEq/L (3.5-5.2) Chloride Level 101mEq/L (97-108) Carbon Dioxide Level 24mmol/L (18-29) Blood Urea Nitrogen 11mg/dL (6-24) Creatinine 1.31mg/dL (0.76-1.27) Estimat Glomerular Filtration Rate 60mL/min (>59) Glucose Level 126mg/dL (60-99) Calcium Level 7.9mg/dL (8.5-10.1) Total Bilirubin 2.7mg/dL (0.0-1.2) Aspartate Amino Transf (AST/SGOT) 29U/L (0-50) Alanine Aminotransferase (ALT/SGPT) 23U/L (0-44) Alkaline Phosphatase 74U/L (25-150) C-Reactive Protein 15.7mg/dL (0.0-0.5) Total Protein 6.2g/dL (6.4-8.4) Albumin 3.6g/dL (3.4-5.0) Test 08/13/16 04:45 08/14/16 05:00 White Blood Count 6.9th/mm3 (3.8-10.1) 3.8th/mm3 (3.8-10.1) Red Blood Count 3.64mil/mm3 (4.40-5.80) 3.39mil/mm3 (4.40-5.80) Hemoglobin 10.8g/dL (13.8-17.2) 10.1g/dL (13.8-17.2) Hematocrit 33.0% (41.0-50.0) 30.8% (41.0-50.0) Mean Corpuscular Volume 90.7fL (81-100) 90.9fL (81-100) Mean Corpuscular Hemoglobin 29.7pg (27.0-35.0) 29.8pg (27.0-35.0) Mean Corpuscular Hemoglobin Concent 32.7% (32.0-37.0) 32.8% (32.0-37.0) Red Cell Distribution Width 14.6% (12.3-15.4) 14.5% (12.3-15.4) Platelet Count 90bil/L (150-400) 95bil/L (150-400) Neutrophils (%) (Auto) 66.1% (40-74) 56.7% (40-74) Lymphocytes (%) (Auto) 23.4% (14-46) 27.9% (14-46) Monocytes (%) (Auto) 6.2% (4-12) 7.4% (4-12) Eosinophils (%) (Auto) 3.9% (0-5) 7.4% (0-5) Basophils (%) (Auto) 0.3% (0-3) 0.3% (0-3) Sodium Level 139mEq/L (134-144) 143mEq/L (134-144) Potassium Level 3.7mEq/L (3.5-5.2) 3.7mEq/L (3.5-5.2) Chloride Level 102mEq/L (97-108) 109mEq/L (97-108) Carbon Dioxide Level 24mmol/L (18-29) 24mmol/L (18-29) Blood Urea Nitrogen 10mg/dL (6-24) 11mg/dL (6-24) Creatinine 1.32mg/dL (0.76-1.27) 1.32mg/dL (0.76-1.27) Estimat Glomerular Filtration Rate 60mL/min (>59) 60mL/min (>59) Glucose Level 93mg/dL (60-99) 100mg/dL (60-99) Calcium Level 7.5mg/dL (8.5-10.1) 7.6mg/dL (8.5-10.1) Total Bilirubin 1.4mg/dL (0.0-1.2) 0.4mg/dL (0.0-1.2) Aspartate Amino Transf (AST/SGOT) 24U/L (0-50) 20U/L (0-50) Alanine Aminotransferase (ALT/SGPT) 20U/L (0-44) 17U/L (0-44) Alkaline Phosphatase 65U/L (25-150) 74U/L (25-150) Total Protein 5.7g/dL (6.4-8.4) 5.5g/dL (6.4-8.4) Albumin 3.2g/dL (3.4-5.0) 3.0g/dL (3.4-5.0) Result Diagram: 08/14/16 0500 08/14/16 0500 Microbiology Multiple organism has been negative from's stool PCR Blood culture negative in the past 24 hours. X-Rays, CTs and MRIs Date of Service: 08/10/162102 PROCEDURE: CT ABDOMEN AND PELVIS WITH CONTRAST ([id number]) IMPRESSION: 1. Surgical changes reflecting colectomy as well as lower quadrant osteopenia there is a questionable appearance of thickening within small bowel loops in the left hemiabdomen without appreciable surrounding inflammatory change. This could be reflective of early changes of inflammation related to Crohn's disease. 2. Distal esophageal thickening traversing the gastroesophageal junction with small hiatal hernia. Could relate to esophagitis. It is unchanged from prior exam, but mildly more prominent compared to prior exams dated 07/23/13. Recommend interval followup as indicated. Dictated by: Francheska Mills M.D. on 08/10/2016 at 21:46 PROCEDURE: CT CHEST WITH CONTRAST ([id number]) INDICATIONS: possible pneumonia,fevers TECHNIQUE: After the administration of intravenous contrast, 5 mm thick sections acquired from the pulmonary apices to the posterior costophrenic angles. 7 mm thick coronal and sagittal MIP reformats were acquired. For radiation dose reduction , the following was used: automated exposure control, adjustment of mA and/or kV according to patient size. COMPARISON: [facility], CR, XR CHEST 2VW, 08/11/2016, 17:08. [facility], US, US VENOUS LEG DPLX UNI LT, 08/11/2016, 18:28. [facility], CT, CT BRAIN WO CON, 08/12/2016, 10:32. [facility], CT, CT NECK SOFT TISSUE W CON, 08/12/2016, 10:36. [facility] , CT, CHEST WITH CONTRAST, 03/21/2011, 7:56. FINDINGS: Image quality: Excellent. Lungs and pleura: No definite acute air space opacities, although there is a small degree of stranding in each posterior lung base, left slightly greater than right, with an appearance more likely represent atelectasis than early pneumonia. No pleural effusions or pneumothorax. Central and peripheral airways are patent and normal in caliber. Mediastinum: Heart size is normal. No pericardial effusion. No mediastinal or hilar adenopathy by size criteria. Thoracic aorta and central pulmonary arteries are normal in size. Esophagus is normal in caliber. No hiatal hernia. Bones and chest wall: No suspicious bony lesions. No vertebral body compression fractures. No axillary or supraclavicular adenopathy by size criteria. Thyroid gland appears normal where well visualized. Central line in normal position from right sided approach, Port-A-Cath. Abdomen: Visualized upper abdominal solid organs appear normal. Upper abdominal bowel loops are normal in caliber. IMPRESSION: Minimal stranding each lung base, left greater than right, more likely to represent atelectasis than pneumonia by appearance. Central line in normal position from right sided approach. Dictated by: Darien Lowry M.D. on 08/12/2016 at 11:30 Approved by: Darien Lowry M.D. on 08/12/2016 at 11:32 PROCEDURE: CT NECK SOFT TISSUES WITH CONTRAST ([id number]) INDICATIONS: pain TECHNIQUE: After the administration of intravenous contrast, 3.0 mm axial sections acquired from the sella to the aortic arch. Additional oblique axial 3.0 mm sections acquired through the pharynx. 3 mm thick coronal reformats were generated. For radiation dose reduction, the following was used: automated exposure control. COMPARISON: None. FINDINGS: Image quality: Excellent. Lymph nodes: No enlarged lymph nodes seen throughout the neck. Vessels: Visualized vasculature appears patent. Neck spaces: The oropharynx, nasopharynx, and pharynx demonstrate no mucosal lesions. The vocal cords, false vocal cords, pyriform sinuses, epiglottis, vallecula, and tongue base all appear normal. Extramucosal spaces appear unremarkable. Glands: The parotid and submandibular glands appear normal. Thyroid gland appears normal. Miscellaneous: Visualized brain and orbits appear normal. Lung apices appear clear. Superficial soft tissues appear normal. Bones: No suspicious bony lesions. Visualized sinuses and mastoids appear unremarkable. IMPRESSION: No trauma found, no inflammatory changes identified. Please note that the metallic artifact from the dental work present but does mildly degrade quality of visualization along the mandible and maxilla bones bilaterally. Note is made of a central line from Port-A-Cath on right sided approach extending in the normal position within the superior vena cava and also a partially visualized anterior low cervical fusion plate. Dictated by: Darien Lowry M.D. on 08/12/2016 at 11:28 Approved by: Darien Lowry M.D. on 08/12/2016 at 11:30 PROCEDURE: CT BRAIN WITHOUT CONTRAST ([id number]) INDICATIONS: pain TECHNIQUE: Noncontrast 4.5 mm thick angled axial sections acquired from the foramen magnum to the vertex, with coronal reformats. COMPARISON: [facility], CT, CT BRAIN WO CON, 07/20/2015, 2:20. FINDINGS: Image quality: Excellent. CSF spaces: Basal cisterns are patent. No extra-axial fluid collections. Ventricles are normal in size and shape. Brain: No midline shift. No intracranial masses or hemorrhage. Martínez-white matter interface is normal. Skull and face: Calvarium and visualized facial bones are intact, without suspicious lesions. Sinuses: Visualized sinuses and mastoids are clear. IMPRESSION: Normal examination. Dictated by: Darien Lowry M.D. on 08/12/2016 at 10:54 Approved by: Darien Lowry M.D. on 08/12/2016 at 10:55 12-lead ECG Sinus tachycardia, but otherwise unremarkable. Cardiac Echo Impressions Echocardiogram 07/20/15 was unremarkable. Cardiac cath in 2007 was unremarkable Assessment & Plan 55-year-old gentleman with history of Crohn's (currently on Remicade) status post colectomy with ileostomy who presents three-day complaint of increased nausea and vomiting associated with decreased by mouth intake, and increased bilateral lower abdominal cramping associated with increased ostomy output. # Crohn's disease, possible flare (please note patient is on Remicade). Present on admission -Abdominal pain, chills, malaise, N/V. -No indication of toxic megacolon or stricture induced bowel obstruction on CT -CT does demonstrate possible wall thickening in the small bowel suggestive of colitis -ER physician discussed case with GI specialist, and recommended fluids overnight and avoiding steroids. -Gentle IV fluids overnight, and will add clear liquid diet (as nausea and vomiting improve, consider discontinuing IV fluids) -We will provide DVT prophylaxis with heparin subcutaneously (given increased risk of thromboembolic events during flare) -Pain control with IV narcotic until nausea and vomiting is better controlled -Antiemetic -Differential includes: Infectious colitis (given increased ostomy output, patient is on immunosuppressive medication). -We will attempt to collect a stool sample from his ostomy bag in order to send for stool PCR, this was done and stool PCR is negative -GI specialist saw yesterday * Please note, patient's outpatient GI doctor is Dr. Jemal Esquivel of [facility] -Progress diet as tolerated # Tachycardia, Chills without fever. Present on admission -Likely related to the above, and we will manage as noted above -Continue to follow vital signs IV fluid hydration Resolved # Headache, acute (onset following third dose of IV narcotic). Present on admission -Administer 1 time dose of IV Toradol (given patient's report of using NSAIDs for his headaches at home. * Will significantly limit further use of NSAIDs given his underlying Crohn's disease, and borderline creatinine Currently asymptomatic # Elevated lactic acid which resolved with fluid administration. Present on admission -We will repeat lactic acid in the morning with a.m. labs Next Laboratory showed normal lactate # Possible infectious process/sepsis in patient with immunosuppression therapy for Crohn's disease Patient does not have elevated white count but may be related to immunosuppressive therapy. Check blood cultures 2 from peripheral and one from port and will repeat if temperatures greater than 38.5 Urine analysis was negative upon admission Check CPK which came back normal Check CT of head and neck soft tissue without contrast, unfortunately was not done yesterday as ordered so we will order stat today Initiate IV antibiotics for sepsis of unknown etiology which will be IV Zosyn and IV vancomycin Check chest x-ray two-view which reveals possible atelectasis versus pneumonia so will proceed with CT of chest without contrast to further elucidate At this point do not feel that lumbar puncture is warranted given the fact that he is not having a headache at this time has no nuchal rigidity. Do not feel that meningitis is in the differential at this time as source of fever and possible sepsis. Certainly we will have a low threshold if clinically things change. -Today on August 13,0ne aerobic bottle is growing a gram-positive cocci possible staph. This was drawn on August 10. There are 2 sets drawn and other vitals are negative. It is not labeled as to whether it was drawn from peripheral site or port. -For now will cover with day #3 of IV Zosyn and IV vancomycin and await further sensitivities and identification. No clear source is evident clinically he is improving. -Still no clear identification and sensitivities on the one blood culture others remain negative. They are questioning possible coag negative staph -Continue with IV vancomycin and IV Zosyn unclear source as blood culture may be contaminant. There is question upon further review of CT of chest that talking about some stranding in the left greater than right base which could conceivably be pneumonic infiltrate. PRN MEDICATIONS - Acetaminophen as needed for mild pain/fever/headache - Bowel regimen as needed - Antiemetic as needed Patient is admitted under inpatient status with expected length of stay greater than 2 midnights due to severity of presenting symptoms, risk of adverse event, and complexity of treatment plan. GI Prophylaxis: Proton Pump Inhibitor VTE Prophylaxis: Sub-Q Heparin (Unfractionated) VTE Mechanical Devices: Intermittant Pneumatic CD Resuscitation Status: CPR: Attempt Resuscitation GI Prophylaxis: Proton Pump Inhibitor VTE Prophylaxis: Sub-Q Heparin (Unfractionated) VTE Mechanical Devices: Intermittant Pneumatic CD Resuscitation Status: CPR: Attempt Resuscitation Time spent 30 minutes Nayeli Rod MD Aug 14, 2016 15:13
--- NOTE | 2016-08-14 16:56 | PCM.PNMED ---
Subjective Date of Service Aug 14, 2016 Subjective Patient feels back to baseline. He has no abdominal pain intact appetite. Exam Vital Signs Vital Sign - Last Date Time Temp Pulse Resp B/P Pulse Ox O2 Delivery O2 Flow Rate FiO2 08/14/16 16:33 36.5 73 18 103/66 97 Room Air Intake and Output 08/13/16 08/13/16 08/14/16 Cumulative From/Thru 15:00 23:00 07:00 08/10/16 18:44 - 08/14/16 06:50 Intake Total 2451 ml 2174 ml 11808 ml Output Total 2700 ml 2450 ml 53614 ml Balance -249 ml -276 ml 3243 ml Intake Oral 900 ml 400 ml 4820 ml IV Total 1551 ml 1774 ml 40836 ml Output Urine Total 1600 ml 1300 ml 6025 ml Stool Total 1100 ml 1150 ml 5905 ml # Voids 3 Exam Physical examination: Patient is alert and oriented comfortable Lungs clear Heart vascular regular rate and rhythm, S1-S2 Abdomen soft nontender nondistended with normal active bowel sounds Skin shows no jaundice Lab and Diagnostics Result Diagram: 08/14/16 0500 08/14/16 0500 Microbiology Multiple organism has been negative from's stool PCR Blood culture negative in the past 24 hours. X-Rays, CTs and MRIs Date of Service: 08/10/162102 PROCEDURE: CT ABDOMEN AND PELVIS WITH CONTRAST ([id number]) IMPRESSION: 1. Surgical changes reflecting colectomy as well as lower quadrant osteopenia there is a questionable appearance of thickening within small bowel loops in the left hemiabdomen without appreciable surrounding inflammatory change. This could be reflective of early changes of inflammation related to Crohn's disease. 2. Distal esophageal thickening traversing the gastroesophageal junction with small hiatal hernia. Could relate to esophagitis. It is unchanged from prior exam, but mildly more prominent compared to prior exams dated 07/23/13. Recommend interval followup as indicated. Dictated by: Francheska Mills M.D. on 08/10/2016 at 21:46 PROCEDURE: CT CHEST WITH CONTRAST ([id number]) INDICATIONS: possible pneumonia,fevers TECHNIQUE: After the administration of intravenous contrast, 5 mm thick sections acquired from the pulmonary apices to the posterior costophrenic angles. 7 mm thick coronal and sagittal MIP reformats were acquired. For radiation dose reduction , the following was used: automated exposure control, adjustment of mA and/or kV according to patient size. COMPARISON: [facility], CR, XR CHEST 2VW, 08/11/2016, 17:08. [facility], US, US VENOUS LEG DPLX UNI LT, 08/11/2016, 18:28. [facility], CT, CT BRAIN WO CON, 08/12/2016, 10:32. [facility], CT, CT NECK SOFT TISSUE W CON, 08/12/2016, 10:36. [facility] , CT, CHEST WITH CONTRAST, 03/21/2011, 7:56. FINDINGS: Image quality: Excellent. Lungs and pleura: No definite acute air space opacities, although there is a small degree of stranding in each posterior lung base, left slightly greater than right, with an appearance more likely represent atelectasis than early pneumonia. No pleural effusions or pneumothorax. Central and peripheral airways are patent and normal in caliber. Mediastinum: Heart size is normal. No pericardial effusion. No mediastinal or hilar adenopathy by size criteria. Thoracic aorta and central pulmonary arteries are normal in size. Esophagus is normal in caliber. No hiatal hernia. Bones and chest wall: No suspicious bony lesions. No vertebral body compression fractures. No axillary or supraclavicular adenopathy by size criteria. Thyroid gland appears normal where well visualized. Central line in normal position from right sided approach, Port-A-Cath. Abdomen: Visualized upper abdominal solid organs appear normal. Upper abdominal bowel loops are normal in caliber. IMPRESSION: Minimal stranding each lung base, left greater than right, more likely to represent atelectasis than pneumonia by appearance. Central line in normal position from right sided approach. Dictated by: Darien Lowry M.D. on 08/12/2016 at 11:30 Approved by: Darien Lowry M.D. on 08/12/2016 at 11:32 PROCEDURE: CT NECK SOFT TISSUES WITH CONTRAST ([id number]) INDICATIONS: pain TECHNIQUE: After the administration of intravenous contrast, 3.0 mm axial sections acquired from the sella to the aortic arch. Additional oblique axial 3.0 mm sections acquired through the pharynx. 3 mm thick coronal reformats were generated. For radiation dose reduction, the following was used: automated exposure control. COMPARISON: None. FINDINGS: Image quality: Excellent. Lymph nodes: No enlarged lymph nodes seen throughout the neck. Vessels: Visualized vasculature appears patent. Neck spaces: The oropharynx, nasopharynx, and pharynx demonstrate no mucosal lesions. The vocal cords, false vocal cords, pyriform sinuses, epiglottis, vallecula, and tongue base all appear normal. Extramucosal spaces appear unremarkable. Glands: The parotid and submandibular glands appear normal. Thyroid gland appears normal. Miscellaneous: Visualized brain and orbits appear normal. Lung apices appear clear. Superficial soft tissues appear normal. Bones: No suspicious bony lesions. Visualized sinuses and mastoids appear unremarkable. IMPRESSION: No trauma found, no inflammatory changes identified. Please note that the metallic artifact from the dental work present but does mildly degrade quality of visualization along the mandible and maxilla bones bilaterally. Note is made of a central line from Port-A-Cath on right sided approach extending in the normal position within the superior vena cava and also a partially visualized anterior low cervical fusion plate. Dictated by: Darien Lowry M.D. on 08/12/2016 at 11:28 Approved by: Darien Lowry M.D. on 08/12/2016 at 11:30 PROCEDURE: CT BRAIN WITHOUT CONTRAST ([id number]) INDICATIONS: pain TECHNIQUE: Noncontrast 4.5 mm thick angled axial sections acquired from the foramen magnum to the vertex, with coronal reformats. COMPARISON: [facility], CT, CT BRAIN WO CON, 07/20/2015, 2:20. FINDINGS: Image quality: Excellent. CSF spaces: Basal cisterns are patent. No extra-axial fluid collections. Ventricles are normal in size and shape. Brain: No midline shift. No intracranial masses or hemorrhage. Martínez-white matter interface is normal. Skull and face: Calvarium and visualized facial bones are intact, without suspicious lesions. Sinuses: Visualized sinuses and mastoids are clear. IMPRESSION: Normal examination. Dictated by: Darien Lowry M.D. on 08/12/2016 at 10:54 Approved by: Darien Lowry M.D. on 08/12/2016 at 10:55 12-lead ECG Sinus tachycardia, but otherwise unremarkable. Cardiac Echo Impressions Echocardiogram 07/20/15 was unremarkable. Cardiac cath in 2007 was unremarkable Assessment & Plan 55-year-old gentleman with history of Crohn's (currently on Remicade) status post colectomy with ileostomy who presents three-day complaint of increased nausea and vomiting associated with decreased by mouth intake, and increased bilateral lower abdominal cramping associated with increased ostomy output. His abdominal issue or GI issues back to baseline. In the past 24 hours, he did not spike any fever since the antibiotic coverage. He has no abdominal pain. Ostomy output is again back to baseline. # Crohn's disease - his Crohn's disease is back to baseline. This is not a new flare of Crohn's disease. I suspect he has an infection on top of his uncontrolled or semi-controlled Crohn's. His infection seem to be under control. I would advance diet as tolerated to low residual. He is tolerating his diet. He needs to follow up with this outsole beveler at the [facility] within 2 days of discharge. They need to make medical plan to follow his Crohn's disease. For now I will sign off and defer his other medical issues to the hospitalist service. GI Prophylaxis: Proton Pump Inhibitor VTE Prophylaxis: Sub-Q Heparin (Unfractionated) VTE Mechanical Devices: Intermittant Pneumatic CD Resuscitation Status: CPR: Attempt Resuscitation Adonis Rao MD Aug 14, 2016 16:56
--- NOTE | 2016-08-14 17:30 | NUR ---
Activity/Pain Patient only complained of pain once during my shift, after he ate a large lunch. Patient stated that he thought he had eaten too much and this was why his stomach was starting to hurt. Pt rated pain at 5/10 and after 1mg dilaudid the patient reported pain back to 2/10, which he says is baseline for him. Pt also says he is going to order a smaller dinner and watch what he eats to avoid this in the future, and he said that the doctor agreed with him. Denies nausea, no vomiting, no chest pain or SOB. Patient has been OOB frequently today and has been sitting in chair. Pt has also taken walks around the hallway with his . Gait is steady. Pt has been using call light appropriately. Addendum: 08/14/16 at 1807 by MADHAV SHRESTHA RN ACTIVITY Patients complains of abdominal pain. Patient rated his pain as 5-6/10 after his meals. Per patient he usually just eats minimally at home and infuses IVF and vitamins via his portacath and adjusts the doses depending on his lab results. Dilaudid 1 mg IVP administered for complaints of pain, which has been effective for pain control. Tolerating liquids PO and his diet fairly. Denies nausea at this time. No emesis noted. Denies SOB. Patient has been ambulating independently in the hallway. Gait is steady. Voiding without any problems. + bowel movement from his ileostomy. Patient has been caring for his own ostomy. Redness around the site is getting lesser per patient.
[2016-08-14] MEDS: Venlafaxine XR 37.5 mg ER24 Capsule PO SCH (20:50)
[2016-08-15 00:04] VITALS: BP 103/55; PULSE 75; RESP 20; O2SAT 96
[2016-08-15] MEDS: Heparin 5,000 Unit/mL Inj SUBQ SCH ×2 (00:57→09:29)
--- NOTE | 2016-08-15 02:25 | NUR ---
Activity Patient ambulated and showered independently this shift. Denies any pain and or discomfort. Agreeable to all medications and treatments at this time. Currently sleeping comfortably.
[2016-08-15] MEDS: 0.9% Sodium Chloride 1,000 ML IV SCH ×2 (03:40→10:29)
[2016-08-15] MEDS: Piperacillin-Tazo 3.375 Gm Inj 3.375 GM in Dextrose 5% Minibag Plus 50 ML IV SCH ×2 (05:18→13:04)
[2016-08-15 05:22] VITALS: BP 112/67; PULSE 73; RESP 20; O2SAT 95
[2016-08-15 05:28] LABS: BASOPHILS % (AUTO) 0.9 % (0-3); EOSINOPHILS % (AUTO) 10.1 % (0-5); Mean Corpuscular Hemoglobin 30.3 pg (27.0-35.0); Mean Corpuscular Volume 89.8 fL (81-100); NEUTROPHILS % (AUTO) 42.5 % (40-74); Platelet Count 136 bil/L (150-400)
[2016-08-15] MEDS: Fluticasone 0.05% 15 Spray/2 Gm 16 Gm Nasal Spray NOSTRIL SCH (08:30)
[2016-08-15] MEDS: Potassium Chloride 20 mEq SR Tablet PO SCH (09:28)
[2016-08-15] MEDS: Pantoprazole 40 mg ER24 Tablet PO SCH (09:28)
[2016-08-15 09:59] VITALS: BP 97/62; PULSE 73; RESP 16; O2SAT 95
[2016-08-15] MEDS: HYDROmorphone 1 mg/mL Inj IVPUSH PRN ×2 (10:29→14:18)
[2016-08-15 11:08] VITALS: PULSE 76
--- NOTE | 2016-08-15 12:19 | PCM.DIMED ---
Discharge Instructions Date of Service Aug 15, 2016 Dates of Hospitalization Aug 11, 2016 at 00:27 Discharge Diagnosis Discharge Diagnosis sepsis with probable aspiration pneumonia Diet Other (low fiber) Activity Other (progresses tolerated) Call your provider Fever or Chills, Shortness of breath, Bleeding, Chest pain, Vomitting, Excessive diarrhea, Weakness (unilateral) Patient Instructions Patient also needs to follow-up work in touch with his government relations analyst specialist to discern when he can restart his Crohn's medication which includes Remicade and azathioprine Follow-up Provider: Ricki Rutledge MD Follow-up with PCP in: 1 week Nayeli Rod MD Aug 15, 2016 12:19
[2016-08-15] MEDS ORDERED: AMOX-366 PO (12:23)
--- NOTE | 2016-08-15 12:42 | PCM.DC.MED ---
Discharge Summary Date of Service Aug 15, 2016 Dates of Hospitalization Date of Hospital Admission Aug 11, 2016 at 00:27 Date of Discharge: Aug 15, 2016 Providers: Admitting Physician: Houston Charles MD Primary Care Physician: Ricki Rutledge MD Attending Physician: Houston Charles MD Diagnosis at Time of Discharge Diagnosis at Time of Discharge sepsis with probable aspiration pneumonia Consultations Gastroenterology Procedures XRay, CTs & MRIs Date of Service: 08/10/16 2103 PROCEDURE: CT ABDOMEN AND PELVIS WITH CONTRAST ([id number]) IMPRESSION: 1. Surgical changes reflecting colectomy as well as lower quadrant osteopenia there is a questionable appearance of thickening within small bowel loops in the left hemiabdomen without appreciable surrounding inflammatory change. This could be reflective of early changes of inflammation related to Crohn's disease. 2. Distal esophageal thickening traversing the gastroesophageal junction with small hiatal hernia. Could relate to esophagitis. It is unchanged from prior exam, but mildly more prominent compared to prior exams dated 07/23/13. Recommend interval followup as indicated. Dictated by: Francheska Mills M.D. on 08/10/2016 at 21:46 PROCEDURE: CT CHEST WITH CONTRAST ([id number]) INDICATIONS: possible pneumonia,fevers TECHNIQUE: After the administration of intravenous contrast, 5 mm thick sections acquired from the pulmonary apices to the posterior costophrenic angles. 7 mm thick coronal and sagittal MIP reformats were acquired. For radiation dose reduction , the following was used: automated exposure control, adjustment of mA and/or kV according to patient size. COMPARISON: [facility], CR, XR CHEST 2VW, 08/11/2016, 17:08. [facility], US, US VENOUS LEG DPLX UNI LT, 08/11/2016, 18:28. [facility], CT, CT BRAIN WO CON, 08/12/2016, 10:32. [facility], CT, CT NECK SOFT TISSUE W CON, 08/12/2016, 10:36. [facility] , CT, CHEST WITH CONTRAST, 03/21/2011, 7:56. FINDINGS: Image quality: Excellent. Lungs and pleura: No definite acute air space opacities, although there is a small degree of stranding in each posterior lung base, left slightly greater than right, with an appearance more likely represent atelectasis than early pneumonia. No pleural effusions or pneumothorax. Central and peripheral airways are patent and normal in caliber. Mediastinum: Heart size is normal. No pericardial effusion. No mediastinal or hilar adenopathy by size criteria. Thoracic aorta and central pulmonary arteries are normal in size. Esophagus is normal in caliber. No hiatal hernia. Bones and chest wall: No suspicious bony lesions. No vertebral body compression fractures. No axillary or supraclavicular adenopathy by size criteria. Thyroid gland appears normal where well visualized. Central line in normal position from right sided approach, Port-A-Cath. Abdomen: Visualized upper abdominal solid organs appear normal. Upper abdominal bowel loops are normal in caliber. IMPRESSION: Minimal stranding each lung base, left greater than right, more likely to represent atelectasis than pneumonia by appearance. Central line in normal position from right sided approach. Dictated by: Darien Lowry M.D. on 08/12/2016 at 11:30 Approved by: Darien Lowry M.D. on 08/12/2016 at 11:32 PROCEDURE: CT NECK SOFT TISSUES WITH CONTRAST ([id number]) INDICATIONS: pain TECHNIQUE: After the administration of intravenous contrast, 3.0 mm axial sections acquired from the sella to the aortic arch. Additional oblique axial 3.0 mm sections acquired through the pharynx. 3 mm thick coronal reformats were generated. For radiation dose reduction, the following was used: automated exposure control. COMPARISON: None. FINDINGS: Image quality: Excellent. Lymph nodes: No enlarged lymph nodes seen throughout the neck. Vessels: Visualized vasculature appears patent. Neck spaces: The oropharynx, nasopharynx, and pharynx demonstrate no mucosal lesions. The vocal cords, false vocal cords, pyriform sinuses, epiglottis, vallecula, and tongue base all appear normal. Extramucosal spaces appear unremarkable. Glands: The parotid and submandibular glands appear normal. Thyroid gland appears normal. Miscellaneous: Visualized brain and orbits appear normal. Lung apices appear clear. Superficial soft tissues appear normal. Bones: No suspicious bony lesions. Visualized sinuses and mastoids appear unremarkable. IMPRESSION: No trauma found, no inflammatory changes identified. Please note that the metallic artifact from the dental work present but does mildly degrade quality of visualization along the mandible and maxilla bones bilaterally. Note is made of a central line from Port-A-Cath on right sided approach extending in the normal position within the superior vena cava and also a partially visualized anterior low cervical fusion plate. Dictated by: Darien Lowry M.D. on 08/12/2016 at 11:28 Approved by: Darien Lowry M.D. on 08/12/2016 at 11:30 PROCEDURE: CT BRAIN WITHOUT CONTRAST ([id number]) INDICATIONS: pain TECHNIQUE: Noncontrast 4.5 mm thick angled axial sections acquired from the foramen magnum to the vertex, with coronal reformats. COMPARISON: [facility], CT, CT BRAIN WO CON, 07/20/2015, 2:20. FINDINGS: Image quality: Excellent. CSF spaces: Basal cisterns are patent. No extra-axial fluid collections. Ventricles are normal in size and shape. Brain: No midline shift. No intracranial masses or hemorrhage. Martínez-white matter interface is normal. Skull and face: Calvarium and visualized facial bones are intact, without suspicious lesions. Sinuses: Visualized sinuses and mastoids are clear. IMPRESSION: Normal examination. Dictated by: Darien Lowry M.D. on 08/12/2016 at 10:54 Approved by: Darien Lowry M.D. on 08/12/2016 at 10:55 ECG 12 Lead Sinus tachycardia, but otherwise unremarkable. Cardiac Echo Impression Echocardiogram 07/20/15 was unremarkable. Cardiac cath in 2007 was unremarkable Brief History This is a 55-year-old male with history significant for Crohn's disease who presents with abdominal pain. The patient is followed by [facility] gastroenterology clinic. He has a 30 year history of Crohn's disease and is status post colectomy with ileostomy around 1989. He states that his Crohn's disease was under control until 3 years ago when he began having frequent flares. In the past he has failed Humira, azathioprine, methotrexate, vedolizumab, ustekinumab, and prednisone. 6 months ago he was on infliximab but stopped this as well. As he is mostly out of choices for treatment his instructional services librarian recommended he go back on remicade (infliximab) . He has his first dose on 08/01/2016 and had a second scheduled for 2016. Of note, the patient has chronic vomiting and chronic hypovolemia with port placement for fluids for which he receives 10 L of fluids per week. On 08/10/2016 he began to experience a self described Crohn's flare. He states these flares happen every few months and are associated with increased nausea and vomiting, bloody and frequent ostomy output, and fatigue. He also was experiencing diffuse abdominal pain that was worst around his ostomy site. He states that when these do occur he switches his diet from soft to liquid, and takes oxycodone and Tylenol alternating which usually relieves the symptoms. When the pain began on 08/10/2016 he states that the pain and vomiting were so severe that he came in emergency department. When he arrived at the emergency department he describes shaking and chills. While in the hospital his MAXIMUM TEMPERATURE was 38.1 at 11:30am on 08/11/2016. In the ER he was given 2 L of normal saline, hydromorphone, Zofran with good symptomatic relief. He had elevated lactic acid of 1.7. PCR stool panel showed no abnormalities. The addended CT scan showed no active inflammation involving bowel loops and no evidence of fistula formation. Currently, the patient states that he is much improved. His abdominal pain has decreased. His nausea and vomiting have decreased. His ostomy output has decreased and is no longer bloody. He is still experiencing chills. The patient states that nursing did report a hypotensive episode with blood pressure 80/40 and he is currently receiving fluids for this. Of particular concern the patient is reporting new onset headaches as well as photophobia. Hospital Course 55-year-old gentleman with history of Crohn's (currently on Remicade) status post colectomy with ileostomy who presents three-day complaint of increased nausea and vomiting associated with decreased by mouth intake, and increased bilateral lower abdominal cramping associated with increased ostomy output. # Crohn's disease, possible flare (please note patient is on Remicade). Present on admission -Abdominal pain, chills, malaise, N/V. -No indication of toxic megacolon or stricture induced bowel obstruction on CT -CT does demonstrate possible wall thickening in the small bowel suggestive of colitis -ER physician discussed case with GI specialist, and recommended fluids overnight and avoiding steroids. -Gentle IV fluids overnight, and will add clear liquid diet (as nausea and vomiting improve, consider discontinuing IV fluids) -We will provide DVT prophylaxis with heparin subcutaneously (given increased risk of thromboembolic events during flare) -Pain control with IV narcotic until nausea and vomiting is better controlled -Antiemetic -Differential includes: Infectious colitis (given increased ostomy output, patient is on immunosuppressive medication). -We will attempt to collect a stool sample from his ostomy bag in order to send for stool PCR, this was done and stool PCR is negative -GI specialist saw yesterday * Please note, patient's outpatient GI doctor is Dr. Jemal Esquivel of [facility] -Progress diet as tolerated -Per gastroenterology here patient is to follow-up when he is discharged within 2 days after discharge with his instructional services librarian that follows his Crohn's disease as an outpatient to talk about reinstitution of Remicade and azathioprine # Tachycardia, Chills without fever. Present on admission -Likely related to the above, and we will manage as noted above -Continue to follow vital signs IV fluid hydration Resolved # Headache, acute (onset following third dose of IV narcotic). Present on admission -Administer 1 time dose of IV Toradol (given patient's report of using NSAIDs for his headaches at home. * Will significantly limit further use of NSAIDs given his underlying Crohn's disease, and borderline creatinine Currently asymptomatic # Elevated lactic acid which resolved with fluid administration. Present on admission -We will repeat lactic acid in the morning with a.m. labs Next Laboratory showed normal lactate # Possible infectious process/sepsis in patient with immunosuppression therapy for Crohn's disease Patient does not have elevated white count but may be related to immunosuppressive therapy. Check blood cultures 2 from peripheral and one from port and will repeat if temperatures greater than 38.5 Urine analysis was negative upon admission Check CPK which came back normal Check CT of head and neck soft tissue without contrast, unfortunately was not done yesterday as ordered so we will order stat today Initiate IV antibiotics for sepsis of unknown etiology which will be IV Zosyn and IV vancomycin Check chest x-ray two-view which reveals possible atelectasis versus pneumonia so will proceed with CT of chest without contrast to further elucidate At this point do not feel that lumbar puncture is warranted given the fact that he is not having a headache at this time has no nuchal rigidity. Do not feel that meningitis is in the differential at this time as source of fever and possible sepsis. Certainly we will have a low threshold if clinically things change. -Today on August 13,0ne aerobic bottle is growing a gram-positive cocci possible staph. This was drawn on August 10. There are 2 sets drawn and other vitals are negative. It is not labeled as to whether it was drawn from peripheral site or port. -For now will cover with day #3 of IV Zosyn and IV vancomycin and await further sensitivities and identification. No clear source is evident clinically he is improving. -Still no clear identification and sensitivities on the one blood culture others remain negative. They are questioning possible coag negative staph -Continue with IV vancomycin and IV Zosyn unclear source as blood culture may be contaminant. There is question upon further review of CT of chest that talking about some stranding in the left greater than right base which could conceivably be pneumonic infiltrate. -We will discharge home today on by mouth Augmentin. Most likely coag-negative staph is a contaminant as it developed several days in the blood culture media. And as it turns out patient had not been given daily vancomycin but had got a 1 time dose. Exam Vital Signs (Last) Date Time Temp Pulse Resp B/P Pulse Ox O2 Delivery O2 Flow Rate FiO2 08/15/16 11:08 76 08/15/16 09:59 36.4 16 97/62 95 Room Air Test 08/10/16 19:19 08/10/16 20:49 08/11/16 04:45 08/11/16 16:40 Prothrombin Time 10.4sec (8.1-12.5) Prothromb Time International Ratio 0.97ratio Magnesium Level 1.9mg/dL (1.6-2.6) Lipase 32U/L (13-60) Urine Color Yellow (YELLOW) Urine Appearance Hazy (CLEAR,HAZY) Urine pH 6.0 (5.0-8.0) Urine Specific [place] 1.025 (1.003-1.035) Urine Protein Negativemg/dL (NEG,TRACE) Urine Glucose (UA) Negativemg/dL (NEGATIVE) Urine Ketones Negativemg/dL (NEGATIVE) Urine Occult Blood Negative (NEGATIVE) Urine Nitrite Negative (NEGATIVE) Urine Bilirubin Negative (NEGATIVE) Urine Urobilinogen Normalmg/dL (NORMAL) Urine Leukocyte Esterase Negative (NEGATIVE) Urine RBC 0-2/hpf (0-2) Urine WBC 0-5/hpf (0-5) Urine Epithelial Cells Moderate/hpf (NONE-MOD) Urine Crystals None seen (NONE SEEN) Urine Bacteria Few/hpf (NONE-FEW) Urine Hyaline Casts None/lpf (NONE) Urine Granular Casts None seen (NONE SEEN) Urine Waxy Casts None seen (NONE SEEN) Urine Red Blood Cell Casts None seen (NONE SEEN) Urine White Blood Cell Casts None seen (NONE SEEN) Urine Mucus Present (None Seen) Urine Trichomonas None seen (NONE SEEN) Urine Yeast None (NONE SEEN) Urinalysis Comment None Urine Culture Reflexed Not indicated Lactic Acid Level 1.3mmol/L (0.4-2.0) Total Creatine Kinase 92U/L (21-232) Test 08/11/16 17:42 08/12/16 04:53 08/12/16 09:00 08/15/16 05:05 Hold Urine Received (Received) Cytomegalovirus IgG Antibody >10.00U/mL (0.00-0.59) Cytomegalovirus IgM Antibody <30.0AU/mL (0.0-29.9) Erythrocyte Sedimentation Rate 25mm/hr (0-30) C-Reactive Protein 15.7mg/dL (0.0-0.5) White Blood Count 3.3th/mm3 (3.8-10.1) Red Blood Count 3.43mil/mm3 (4.40-5.80) Hemoglobin 10.4g/dL (13.8-17.2) Hematocrit 30.8% (41.0-50.0) Mean Corpuscular Volume 89.8fL (81-100) Mean Corpuscular Hemoglobin 30.3pg (27.0-35.0) Mean Corpuscular Hemoglobin Concent 33.8% (32.0-37.0) Red Cell Distribution Width 14.4% (12.3-15.4) Platelet Count 136bil/L (150-400) Neutrophils (%) (Auto) 42.5% (40-74) Lymphocytes (%) (Auto) 38.2% (14-46) Monocytes (%) (Auto) 8.0% (4-12) Eosinophils (%) (Auto) 10.1% (0-5) Basophils (%) (Auto) 0.9% (0-3) Sodium Level 142mEq/L (134-144) Potassium Level 3.9mEq/L (3.5-5.2) Chloride Level 109mEq/L (97-108) Carbon Dioxide Level 24mmol/L (18-29) Blood Urea Nitrogen 9mg/dL (6-24) Creatinine 1.18mg/dL (0.76-1.27) Estimat Glomerular Filtration Rate 68mL/min (>59) Glucose Level 96mg/dL (60-99) Calcium Level 8.0mg/dL (8.5-10.1) Total Bilirubin 0.3mg/dL (0.0-1.2) Aspartate Amino Transf (AST/SGOT) 24U/L (0-50) Alanine Aminotransferase (ALT/SGPT) 22U/L (0-44) Alkaline Phosphatase 86U/L (25-150) Total Protein 5.7g/dL (6.4-8.4) Albumin 3.1g/dL (3.4-5.0) Microbiology Results Multiple organism has been negative from's stool PCR Blood culture negative in the past 24 hours. Discharge Medications Discharge Medications Amoxicillin/Clav K 875-125 mg (Augmentin 875-125 mg) 1 Each Tablet 1 TABLET PO BID Prescribed by: NAYELI ROD MD Cholecalciferol (Vitamin D3) (Vitamin D3) 2,000 Unit Tablet 2,000 UNIT PO BID ( Reported) Cyanocobalamin (Vitamin B-12) (B-12) 500 Mcg Tab.rapdis 500 MCG SL MoWeFr ( Reported) Fluticasone Propionate (Fluticasone Propionate Nasal) 16 Gm Hoagland.susp 2 SPRAY NOSTRIL BID (Reported) Multivitamin (Once Daily) 1 Each Tablet 1 EACH PO MONWEDFRI (Reported) Omeprazole (Omeprazole) 40 Mg Capsule.dr 40 MG PO DAILY (Reported) Potassium Chloride (Potassium Chloride) 20 Meq Tab.er.prt 20 MEQ PO BID ( Reported) Promethazine (Promethazine) 12.5 Mg Tablet 12.5 MG PO DAILY (Reported) Venlafaxine ER (Venlafaxine ER) 37.5 Mg Cap.er.24h 37.5 MG PO HS (Reported) Zinc Gluconate (Zinc) Unknown Strength Tablet 50 MG PO BID (Reported) As needed Ondansetron ODT (Ondansetron ODT) 4 Mg Tab.rapdis 4-8 MG PO TID PRN PRN For Nausea (Reported) Triamcinolone Acet (Triamcinolone Acetonide Ointment) 1 Applic/0.25 Gm Oint 1 APPLIC TOP BID PRN PRN skin irritation (Reported) oxyCODONE (oxyCODONE) 5 Mg Tablet 5 MG PO Q6H PRN PRN For Pain (Reported) Followup Plan Disposition: Home Discharge Diet: Other (low fiber) Discharge Activity: Other (progresses tolerated) Patient Instructions Patient also needs to follow-up work in touch with his instructional services librarian specialist to discern when he can restart his Crohn's medication which includes Remicade and azathioprine Follow-up Provider: Ricki Rutledge MD Follow-up with PCP in: 1 week Time spent 60 minutes Nayeli Rod MD Aug 15, 2016 12:42
[2016-08-15 12:45] VITALS: BP 110/80; PULSE 65; RESP 16; O2SAT 96
--- NOTE | 2016-08-15 14:07 | NUR ---
Social Work- Discharge Data: EMR reviewed. Pt is on day 4 of hospitalization for Crohns with intractable pain per H&P. Pt is medically stable and will discharge today. Per RN notes, pt has been independent in room. Pt to discharge home with family to transport via POV. No discharge needs. Assessment: Pt who is independent at base. Plan: Pt to discharge today. Pt to discharge home with family to transport via POV. No discharge needs. Luz Florian MSW
--- NOTE | 2016-08-15 16:41 | NUR ---
Discharge Pt left with family in stable condition with all belongings at 1610, Central line de-accessed by IV therapy, follow up appointments already scheduled, prescriptions given and faxed to pharmacy.
[2016-09-07] MEDS ORDERED: REMICADE IV (16:29)
[2016-09-07] MEDS ORDERED: CETI5TAB28 PO (16:29)
[2016-09-07] MEDS ORDERED: AZTH50T PO (16:29)
[2016-09-07] MEDS ORDERED: CLOT45CR7 TP (16:29)
[2016-09-07] MEDS ORDERED: [UNRECOGNIZED DRUG - OTHER] (16:29)
[2016-09-07] MEDS ORDERED: EPIN0.3P2 IJ (16:29)
[2016-09-07] MEDS ORDERED: LOM PO (16:29)
== END 2016-08-15 16:10 | disposition home or self-care (01) | DRG 871 ==
LOC: SED 18:29 → OBSVTOIN 08-11 00:27 → OSC 08-11 00:27
PROVIDERS: ADMIT Hospitalist; ATTEND Hospitalist
DX: A41.9 Sepsis, unspecified organism (principal); J69.0 Pneumonitis due to inhalation of food and vomit; K50.00 Crohn's disease of small intestine without complications; I10 Essential (primary) hypertension; R00.0 Tachycardia, unspecified; R51 Headache; Z93.2 Ileostomy status; Z79.899 Other long term (current) drug therapy; R74.0 Nonspecific elevation of levels of transaminase and lactic acid dehydrogenase [LDH]

== ENCOUNTER 2016-09-13 07:47 | Day surgery (SDC) | payer OTHER ==
[~2016-09-13] VITALS: Ht 182.9 cm; Wt 91.6 kg
[2016-09-13] VITALS (9 sets, daily range): BP systolic 120–145; BP diastolic 67–76; PULSE 60–77; RESP 13–17; O2SAT 97–100
[~2016-09-13 07:47] MED LIST changes: +AZTH50T PO; +CETI5TAB28 PO; -CIPR-198 PO; +CLOT45CR7 TP; +CeFAZolin Inj 2 GM in IV Premix 1 EACH IV ONE; -DILT360C36 PO; +EPIN0.3P2 IJ; +LOM PO; +Lactated Ringer's 1,000 ML IV SCH; -METR500T19 PO; +PROM12.510 PO; +REMICADE IV; +VENL-57 PO; -VENL37.57 PO; -WARF2TAB7 PO
[2016-09-13] MEDS ORDERED: Dexamethasone 4 mg/mL Inj ONE (07:48)
[2016-09-13] MEDS ORDERED: fentaNYL-PF 50 mCg/mL 2 mL Inj ONE (07:48)
[2016-09-13] MEDS ORDERED: Glycopyrrolate 0.2 MG/ML 1mL Inj ONE (07:48)
[2016-09-13] MEDS ORDERED: Rocuronium 10 mg/mL 5 mL Inj ONE (07:48)
[2016-09-13] MEDS ORDERED: Propofol 10,000 mCg/mL 20 mL Inj ONE (07:48)
[2016-09-13] MEDS ORDERED: Neostigmine 1 mg/mL 10 mL Inj ONE (07:48)
[2016-09-13] MEDS ORDERED: Ondansetron 2 mg/mL 2 mL Inj ONE (07:48)
--- NOTE | 2016-09-13 09:21 | PCM.HPANE ---
Patient Data Surgeon Admitting Provider: Attending Provider:Esteban Chang MD Primary Care Physician:Ricki Rutledge MD Other Provider: Reason for Visit Right Rotator Cuff Tear, Impingment Syndrome Ht/WT & BMI Height (Feet): 6 Height (Inches): 0 Weight (Kilograms): 91.626 Body Mass Index 27.00 Allergies Coded Allergies: Sulfa (Sulfonamide Antibiotics) (Verified Allergy, Severe, PALPITATIONS, FLUSHING,RASH, 09/07/16) morphine (Verified Adverse Reaction, Severe, NAUSEA, 09/07/16) Past Anesthesia History Anesthesia History: Denies:: Anesthesia Reactions, Malignant Hyperthermia Diabetes History Hx Diabetes?: No MRSA MRSA: No Medications Hypertension Medication: No Home Meds Incl Beta Juaquin: No Reported Medications [Remicade] No Conflict Check # Iv UNKNOWN DOSAGE,UNKNOWN FREQUENCY 09/07/16 Epinephrine (Epipen 2-Jeyson)0.3 Mg/0.3 Ml Auto.injct0.3 Mg IJ PRN 09/07/16 Diphenoxylate/Atropine (Diphenoxylate-Atrop 2.5-0.025)2.5 Mg Tablet1-2 Tab PO TID PRN For Diarrhea or Loose Stool 09/07/16 Clotrimazole 1% (Gyne-Lotrimin 7 1%)45 Gm Cream.appl1 Applic TP BID 1% 09/07/16 Cetirizine 5 Mg Qwjyrh23 Mg PO HS Ref 0 09/07/16 Azathioprine 50 Mg Gjflux255 Mg PO DAILY Ref 0 09/07/16 Venlafaxine ER 37.5 Mg Cap.er.24h37.5 Mg PO HS #30 08/11/16 Promethazine 12.5 Mg Coomkp94.5 Mg PO Q6H PRN PRN #120 08/11/16 Triamcinolone Acet (Triamcinolone Acetonide Ointment)1 Applic/0.25 Gm Oint1 Applic TOP BID PRN skin irritation #60 GM Ref 0 0.1% 07/20/15 Cyanocobalamin (Vitamin B-12) (B-12)500 Mcg Tab.rapdis2,500 Mcg SL DAILY 07/20/15 Fluticasone Propionate (Fluticasone Propionate Nasal)16 Gm [place].susp2 [place] NOSTRIL DAILY 07/20/15 Omeprazole 40 Mg Capsule.dr40 Mg PO DAILY 07/20/15 Potassium Chloride 20 Meq Tab.er.prt20 Meq PO BID #60 07/20/15 Zinc Gluconate (Zinc)Unknown Strength Ysqjof59 Mg PO BID 07/20/15 Multivitamin (Once Daily)1 Each Tablet1 Each PO MONWEDFRI 07/20/15 Cholecalciferol (Vitamin D3) (Vitamin D3)2,000 Unit Tablet2,000 Unit PO BID 07/20/15 Ondansetron ODT 4 Mg Tab.rapdis4-8 Mg PO BID PRN For Nausea 07/21/14 oxyCODONE 5 Mg Tablet5 Mg PO Q6H PRN For Pain 07/21/14 Discontinued Reported Medications [Remic] No Conflict Check # 09/07/16 Discontinued Scripts Amoxicillin/Clav K 875-125 mg (Augmentin 875-125 mg)1 Each Tablet1 Tablet PO BID #14 TABLET Ref 0 Prov:Nayeli Rod MD 08/15/16 History History of ENT Problems?: Yes HEENT History: Positive for:: Sinus Problem (SEASONAL ALLERGIES) Denies:: Cataracts Dysphagia Other HEENT Pertinent History: S/P T&A Hx of Heart Problems?: Yes Cardiovascular History: Positive for:: Chest Pain (ATYPICAL) Hypertension Irregular Heartbeat (HX PSVT) Thrombophlebitis (2010 DVT/PE) Denies:: Congestive Heart Failure Edema Heart Murmur (ECHO 07/2015 EF 60-65%) Pacemaker Valvular Heart Disease Other Cardiac History: > 4 METS, denies CAD, atypical CP related to dyspepsia and GERD Hx of Respiratory Problem?: Yes Respiratory History: Positive for:: Asthma Dyspnea (SUMMER ALLERGIES) Pulmonary Embolism (2010) Denies:: COPD Chest Surgery Emphysema Hemoptysis Pneumonia Tuberculosis Use of C-PAP Machine Hx Neurologic Problems?: No Neurological History: Denies:: Alzheimer's Disease CVA Dementia Dizziness Headaches Parkinson's Disease Seizures Hx of GI Problems?: Yes Gastrointestinal History: Positive for:: Gall Bladder Disease (S/P LEONA HX GALLSTONE PANCREATITIS) Gastroesphageal Reflux Heartburn Hepatitis (HX HEP C-TREATED) Denies:: Diverticulitis Gastrointestinal Bleeding Hiatal Hernia Rectal Bleeding Other GI Pertinent History: HX CROHN'S-MANAGED BY DR. Betty BEAUCHAMP/[facility] [place] (ON REMICADE IV 07/2016) S/P BOWEL SURGERIES X4 INCLUDING ILEOSTOMY,LAP-LYSIS OF ADHESIONS,PANCOLECTOMY,APPY,B/L HERNIA RPR Hx of Problems?: Yes Genitourinary History: Denies:: Kidney Stones Urinary Tract Infection Other Pertinent History: ED Male Hx: Positive for:: Prostate Problems (MILD) Denies:: Scrotal Mass Testicular Surgery Skin History: Positive for:: History Skin Disorders? (psorisis ) Denies:: Pressure Ulcers Hx Musculoskeletal Problems?: No Musculoskeletal History: Positive for:: Back Injury (C/OF BACK PAIN) Musculoskeletal Trauma (RT ROTATOR CUFF TEAR/IMPINGEMENT SYNDROME=CURRENT PROBLEM) Denies:: Joint Replacement Hx of Psycho/Social Problems?: Yes Psycho Social History: Positive for:: Anxiety Hx Depression Denies:: Bipolar Disorder Suicide Attempt Hx Surgeries?: Yes (LEONA,B/L HERNIA,T&A,APPY,BOWEL SURG X4-ILEOSTOMY,VEIN STRIPPING HEART CATH) Hx Any Other Health Problems?: Yes Other History: Positive for:: Hospitalization (CROHN'S) Denies:: Cancer Endocrine Disease Thyroid Disease History Blood Transfusions: Denies:: Blood Transfuse Reaction Blood Transfusions Hx Diabetes: No Hx Alcohol Use: NoHx Substance Use: Yes (HX OF METH/IVDU QUIT 1984) Smoking Status: Never Smoker Have You Smoked inLast 12 mo: No Stop/Bang S-Snoring: Do You Snore Loudly: No T-Tired: feel tired, fatigued: No O-Obsered: Observed not breath: No P-Blood Pressure: treated: Yes B- Body Mass Index > 35 kg/m2: No A- Age over 50: Yes N- Neck Large Circumference: No G- Gender Male: Yes ELIJAH Total Score: 3 ELIJAH Risk Assessment: High Risk, =/>3 Yes Risk Assessment Category Category 1A: Patient has history of documented sleep apnea, and HAS NOT received any narcotic, sedative or anesthesia administration during this stay. Category 1B: Patient has history of documented sleep apnea, and HAS received any narcotic , sedative or anesthesia administration during this stay Category 2: Patient has SUSPECTED Obstructive Sleep Apnea, and HAS received any narcotic , sedative or anesthesia administration during this stay. Category 3: Patient has SUSPECTED Obstructive Sleep Apnea and HAS NOT received narcotic, sedative or anesthesia administration during this stay. Category 4: Outpatient in Procedural Areas with known sleep apnea or who screen positive for High Risk via the STOP/BANG questionnaire. Exam Exam General Appearance: Alert, Oriented X3, Cooperative, No Acute Distress HEENT/AIRWAY: MP 3, Neck Movement (limited to full extension) Lungs: Clear to Auscultation, Normal Air Movement Heart: Exam Unremarkable, Regular Rate/Rhythm, No Murmurs/Rubs/Gallops Plan Impression Patient chart reviewed, patient interviewed and anesthestic plan with risks, benefits, and alternatives discussed, and informed consent obtained. ASA Physical Status: ASA3 Severe Disease Anesthetic Support Modalities: Prince Scope (elective use) Anesthetic Plan: GA, Regional Block (ISB with US) Bene/Risks/Altern/Consents: Yes HP Complete Prior to Induction: Yes Gurmeet Shannon MD Sep 13, 2016 08:06
[2016-09-13] MEDS ORDERED: Lactated Ringer's 500 ML IV PRN (09:43)
[2016-09-13] MEDS ORDERED: Lactated Ringer's 1,000 ML IV SCH (09:43)
[2016-09-13] MEDS ORDERED: Ondansetron 2 mg/mL 2 mL Inj IVPUSH PRN (09:45)
[2016-09-13] MEDS ORDERED: MetoCLOpramide 5 mg/mL 2 mL Inj IVPUSH PRN (09:45)
[2016-09-13] MEDS ORDERED: fentaNYL-PF 50 mCg/mL 2 mL Inj IVPUSH PRN (09:45)
[2016-09-13] MEDS ORDERED: Phenylephrine 10,000 mCg/mL Inj IVPUSH PRN (09:45)
[2016-09-13] MEDS ORDERED: HYDROmorphone 1 mg/mL Inj IVPUSH PRN (09:45)
[2016-09-13] MEDS ORDERED: Atropine 0.4 mg/mL Inj IVPUSH PRN (09:45)
[2016-09-13] MEDS ORDERED: EPHEDrine Sulfate 50 mg/mL Inj IVPUSH PRN (09:45)
[2016-09-13] MEDS ORDERED: Labetalol 5 mg/mL 4 mL Inj IV PRN (09:45)
[2016-09-13] MEDS ORDERED: Ropivacaine-PF 0.5% 30 mL Inj INJ ONE (09:50)
[2016-09-13] MEDS ORDERED: HYDROcodone-APAP 5-325 mg Tablet PO PRN (10:05)
[2016-09-13] MEDS ORDERED: Ketorolac 15 mg/mL Inj IVPUSH ONE (10:05)
--- NOTE | 2016-09-13 10:14 | PCM.ORTHOP ---
Orthopedic Operative Report Date of Service: Sep 13, 2016 Pre Operative Diagnosis Right shoulder adhesive capsulitis, impingement syndrome, acromioclavicular joint arthritis, partial thickness rotator cuff tear Post Operative Diagnosis Same Procedure Right shoulder manipulation under anesthesia, right shoulder arthroscopy, rotator cuff debridement, subacromial decompression, distal clavicle excision, partial synovectomy Surgeon Surgeon: Esteban Chang MD Assistants: Alek Fontaine Indication for Procedure Right shoulder adhesive capsulitis Findings Per dictation Details of Procedure AUTOMOBILE AND PROPERTY UNDERWRITER SURGEON: During the operation, the services of physician assistant track coach were medically indicated and necessary to provide exposure of the operative site for the surgical procedure and to maintain the limb in a proper position to carry out the operation safely and efficiently. Without the qualified housing assistant being present, it would have extended the operative procedure and made the procedure technically more difficult to perform. INDICATIONS: The patient is Jerome Sim who is a 55-year-old male who has developed adhesive capsulitis of the right shoulder. X-rays show the glenohumeral joint to be well maintained. The risks, benefits, and alternatives of surgery were discussed with the patient. The risks included but were not limited to infection, bleeding, damage to vessels and nerves, loss of motion, continued pain, complications due to anesthesia including myocardial infarction , stroke, , etc. The patient stated understanding of the nature of the surgical procedure and gave written and verbal consent to proceed. PROCEDURE: The patient was brought into the operating room and placed supine on the operating room table. A interscalene block was placed in the right shoulder for postoperative pain management, followed by the administration of general anesthesia. Preoperative antibiotic(s) was(ere) given The patient was then placed into the lateral decubitus position with the affected side up. An axillary role was placed and the legs were padded as necessary to avoid pressure points. The patient was maintained in position with a beanbag evacuation device. A thorough examination of the left shoulder under anesthesia was performed. The patient had 70 degrees of forward elevation and 70 degrees of abduction. In 90 degrees of abduction the patient had 45 degrees of external rotation and 0 degrees of internal rotation. The affected shoulder was then examined for stability. A manipulation under with resultant 150 of forward flexion, 130 of abduction, 90 of external rotation, 70 of internal rotation. The affected upper extremity was then prepped and draped in the usual fashion. The arm was suspended with a well-padded sleeve with eight pounds of balanced suspension in the arthroscopic position. A standard posterior portal was made inferior and medial to the posterior corner of the acromion. The incision was made only through skin. The trocar was advanced through the soft tissue with a blunt-tipped obturator. This was inserted into the glenohumeral joint without difficulty. The arthroscope was placed through the cannula and attached to the video monitor system. Inflow was achieved using the arthroscopic pump. The pressure was maintained at 35-40 mm of mercury throughout the entire procedure. Once the arthroscope confirmed visualization within the shoulder joint, it was advanced anteriorly into the rotator interval beneath the biceps tendon. A Wissinger maurizio was then used to create the anterior portal from inside-out. A second anterior stab wound incision was made only through skin and an anterior cannula was placed. A routine arthroscopic survey was begun CLARK and padmini procedure: Within the subacromial space there was marked fraying on the undersurface of the coracoacromial ligament consistent with impingement. A decision was thus made to proceed with arthroscopic subacromial decompression. Using an RF wand and a motorized shaver the coracoacromial ligament was recessed from the anterior acromial edge. An orientation trough was made along the lateral margin of the acromion, from the anterior corner back to the posterior margin of the AC joint. A sequential subacromial smoothing was carried out, removing approximately 4 mm of bone corresponding to the preoperative radiographs. Once completed, the AC joint capsule was opened. There was inferior spurring as well as synovitis and arthritic changes at the AC joint and a decision was made to proceed with distal clavicle excision. Using a motorized bur working initially from posteriorly and then anteriorly, the outer 10 mm of the distal clavicle were excised. The arthroscope was then positioned anteriorly within the AC resection site confirming an excellent level of resection. Survey: A severely contracted inferior capsule as well as glenohumeral ligament was noted. A2B2C0 RTC tear approximately 20% of thickness Complex surgical procedure: This was an extremely complex surgical procedure which took approximately 30-40% longer to complete than a standard repair. Without the use of a qualified assistant manager/embalmer, this surgical procedure would have taken even considerably longer and been unable to be performed arthroscopically A lysis of adhesions was performed circumferential lysis of ligament and capsule circumferentially around the glenoid between the junction superficial to the labrum and capsule/glenohumeral ligaments. Closure: The arm was then taken out of traction. The instability both in neutral rotation and in abduction external rotation was eliminated. The humeral head was well centralized. The arthroscope was then used to visualize the repair both from the anterior superior viewing portal and the posterior viewing portal which showed the humeral head to be well balanced with excellent and appropriate tissue tension. The glenohumeral joint was then copiously irrigated with an additional liter of lactated Ringers solution and excess fluid was drained. The arthroscopic portals were closed with #4-0 nylon and Steri-Strips. A dry sterile dressing was applied, followed by a neutral rotation sling. The patient was awakened in the Operating Room and transported to the Recovery Room in satisfactory condition. The patient appeared to tolerate the procedure well. There were no complications noted. Grafts, Implants: None Complications There were no periprocedural complications identified. Condition Stable Anesthetic Administered: GA Catheters: None Output, Estimated Blood Loss: 5 Blood Admin during surgery: No Surgical Cast or Splint: Shoulder Immobilizer, Other Surgical Specimen Removed: No Specimen sent to Pathology: No copies to: Esteban Chang MD, Christopher L MD Sep 13, 2016 10:14
--- NOTE | 2016-09-13 11:03 | PCM.ANEP1 ---
Post Anesthesia Phase 1 PACU Phase 1 Assessment Date of Service: Sep 13, 2016 Vital Signs Vital Signs Date Time Temp Pulse Resp B/P Pulse Ox O2 Delivery O2 Flow Rate FiO2 09/13/16 10:25 60 13 122/67 100 Simple Mask 10 09/13/16 10:20 62 16 120/68 100 Simple Mask 10 09/13/16 10:15 67 17 120/72 100 Simple Mask 10 09/13/16 10:10 36.3 66 13 137/75 100 Simple Mask 10 09/13/16 08:30 36 73 14 124/68 97 Room Air Anesthetic Administered: GA, Regional Block Level of Alertness: Awake, talking HERNANDEZ's with Equal Strength: Yes Pain: No Nausea or Vomiting: No Oxygen Delivery: Simple Mask Lungs: Clear to Auscultation, Normal Air Movement Gurmeet Shannon MD Sep 13, 2016 11:03
--- NOTE | 2016-09-13 11:10 | PCM.ANEP2 ---
Post Anesthesia Evaluation ASA/CMS Post Anesthesia VS in Patient's Normal Range?: Yes Resp Stable; Airway Patent?: Yes CV Function & Hydration Stable: Yes Mental Status Recovered?: Yes Pain control Satisfactory?: Yes N/V Control Satisfactory?: Yes Gurmeet Shannon MD Sep 13, 2016 11:10
== END 2016-09-13 23:59 | disposition home or self-care (01) ==
LOC: SAS 07:47
PROVIDERS: ATTEND Orthopaedic Surgery
DX: M75.111 Incomplete rotator cuff tear or rupture of right shoulder, not specified as traumatic (principal); M75.01 Adhesive capsulitis of right shoulder; M75.41 Impingement syndrome of right shoulder; M19.011 Primary osteoarthritis, right shoulder; K50.90 Crohn's disease, unspecified, without complications; I10 Essential (primary) hypertension; R00.0 Tachycardia, unspecified; J45.909 Unspecified asthma, uncomplicated; M51.36 Other intervertebral disc degeneration, lumbar region; B18.2 Chronic viral hepatitis C; F41.9 Anxiety disorder, unspecified; K21.9 Gastro-esophageal reflux disease without esophagitis; Z87.898 Personal history of other specified conditions; Z79.52 Long term (current) use of systemic steroids; Z86.711 Personal history of pulmonary embolism

== ENCOUNTER 2016-10-18 12:46 | Emergency (ER) | payer OTHER ==
[~2016-10-18] VITALS: Ht 182.9 cm; Wt 88.2 kg
[~2016-10-18 12:46] MED LIST changes: -CeFAZolin Inj 2 GM in IV Premix 1 EACH IV ONE; -Lactated Ringer's 1,000 ML IV SCH
[2016-10-18 12:52] VITALS: BP 134/71; PULSE 81; RESP 21; O2SAT 97
[2016-10-18] MEDS ORDERED: Ondansetron 2 mg/mL 2 mL Inj ONE (13:05)
[2016-10-18] MEDS ORDERED: 0.9% Sodium Chloride 1,000 ML IV ONE ×2 (13:09→14:55)
[2016-10-18] MEDS ORDERED: Ondansetron 2 mg/mL 2 mL Inj IVPUSH PRN (13:10)
[2016-10-18] MEDS ORDERED: HYDROmorphone 0.5 mg/0.5 mL iSecure Syringe IVPUSH PRN (13:10)
[2016-10-18] MEDS ORDERED: Ondansetron 2 mg/mL 2 mL Inj IVPUSH ONE (13:10)
[2016-10-18] MEDS: HYDROmorphone 1 mg/mL Inj IM PRN ×2 (13:17→13:58)
[2016-10-18 13:24] LABS: BASOPHILS % (AUTO) 0.2 % (0-3); EOSINOPHILS % (AUTO) 4.3 % (0-5); MONOCYTES % (AUTO) 10.9 % (4-12); Mean Corpuscular Hemoglobin 31.3 pg (27.0-35.0); NEUTROPHILS % (AUTO) 51.8 % (40-74); Platelet Count 106 bil/L (150-400)
--- NOTE | 2016-10-18 13:27 | ED.REPORT ---
HPI-Abd Pain M 40 and Over Date of Service October 18, 2016 ED Provider: Dipti Agustin MD The patient is a 55 year old male with a long history of Crohn's disease s/p colectomy with ileostomy, bowel obstructions, hypertension, and GERD, who presents to the emergency department complaining of severe abdominal pain that began 5 days ago. He describes the pain as cramping. His pain has been constant since onset. He has had nausea since onset and this morning he started vomiting. He denies fever, chills, constipation, bloody stools, back pain, dysuria or hematuria. He normally takes 5 mg oxycodone q6h for pain. He tries not to take this if he doesn't need it. From records: The patient is followed by [facility] gastroenterology clinic. He has a 30 year history of Crohn's disease and is status post colectomy with ileostomy around 1989. He states that his Crohn's disease was under control until 3 years ago when he began having frequent flares. In the past he has failed Humira, azathioprine, methotrexate, vedolizumab, ustekinumab, and prednisone. 6 months ago he was on infliximab but stopped this as well. As he is mostly out of choices for treatment his technology strategist recommended he go back on remicade (infliximab). He has his first dose on 08/01/2016 and had a second scheduled for 08/18/2016. Of note, the patient has chronic vomiting and chronic hypovolemia with port placement for fluids for which he receives 10 L of fluids per week. Nursing Notes Stated Complaint: CROHN'S COMPLICATIONS Chief Complaint: Male Abdominal Pain Nursing Notes Reviewed: Yes Allergies: Coded Allergies: Sulfa (Sulfonamide Antibiotics) (Verified Allergy, Severe, PALPITATIONS, FLUSHING,RASH, 10/18/16) morphine (Verified Adverse Reaction, Severe, NAUSEA, 10/18/16) Scheduled Azathioprine (Azathioprine) 50 Mg Tablet 100 MG PO DAILY Cetirizine (Cetirizine) 5 Mg Tablet 10 MG PO HS Cholecalciferol (Vitamin D3) (Vitamin D3) 2,000 Unit Tablet 2,000 UNIT PO BID Clotrimazole 1% (Gyne-Lotrimin 7 1%) 45 Gm Cream.appl 1 APPLIC TP BID 1% Cyanocobalamin (Vitamin B-12) (B-12) 500 Mcg Tab.rapdis 2,500 MCG SL DAILY Epinephrine (Epipen 2-Jeyson) 0.3 Mg/0.3 Ml Auto.injct 0.3 MG IJ PRN Fluticasone Propionate (Fluticasone Propionate Nasal) 16 Gm [place].susp 2 [place] NOSTRIL DAILY Multivitamin (Once Daily) 1 Each Tablet 1 EACH PO MONWEDFRI Omeprazole (Omeprazole) 40 Mg Capsule.dr 40 MG PO DAILY Potassium Chloride (Potassium Chloride) 20 Meq Tab.er.prt 20 MEQ PO BID Venlafaxine ER (Venlafaxine ER) 37.5 Mg Cap.er.24h 37.5 MG PO HS Zinc Gluconate (Zinc) Unknown Strength Tablet 50 MG PO BID Scheduled PRN Diphenoxylate/Atropine (Diphenoxylate-Atrop 2.5-0.025) 2.5 Mg Tablet 1-2 TAB PO TID PRN PRN For Diarrhea or Loose Stool Ondansetron ODT (Ondansetron ODT) 4 Mg Tab.rapdis 4-8 MG PO BID PRN PRN For Nausea Promethazine (Promethazine) 12.5 Mg Tablet 12.5 MG PO Q6H PRN PRN PRN Triamcinolone Acet (Triamcinolone Acetonide Ointment) 1 Applic/0.25 Gm Oint 1 APPLIC TOP BID PRN PRN skin irritation 0.1% oxyCODONE (oxyCODONE) 5 Mg Tablet 5 MG PO Q6H PRN PRN For Pain General Time Seen by MD: 12:58 Chief Complaint Abdominal pain Hx Obtained From: Patient, Spouse Arrived By: Walk-in Sudden in Onset?: No Onset Occurred: 5 days ago Symptom Duration: Since onset Progression since Onset: Constant, Gradually worsening Location: : Diffuse Quality: Cramping, Painful Radiation: : Does not radiate Severity: Current: Moderate Severity: Maximum: Severe Recent Healthcare: No recent hospitalization, Recent doctor visit Similar Sx Previous: Yes Past Medical History Past Medical History Notes: GI: Dr. Jemal Esquivel, Past Medical History 1. Crohn's disease 2. Asthma 3. GERD 4. HTN 5. Depression 6. Hx of DVT and PE 2014, previously on warfarin 7. Nasal allergies 8. SBO's Past Surgical History 1. LE Vein Stripping 2. Cervical Laminectomy 3. Total Colectomy with ileostomy 4. Appendectomy 5. Bilateral Hernia Repair 6. Cholecystectomy 7. Laparotomy with lysis of adhesions 2007 Family History Sister - CHF Brother - GA Mother - Emphysema, Lung Cancer, Stomach Cancer Smoking History Never Smoker Social History Alcohol Use: "Social" Drug Use: Denies drug use Other Social History: Local resident Ambulatory Status Independent Review of Systems Constitutional: Denies: Chills, Fever GI: Reports: Abdominal pain, Nausea, Vomiting, Denies: Bloody/tarry stool, Constipation, Hematemesis, Hematochezia, Melena Male: Denies Dysuria, Denies Hematuria Musculoskeletal: Denies: Back pain Complete sys rev & neg: except as marked. Physical Exam Initial Vital Signs Vital Signs (First) Date Time Temp Pulse Resp B/P Pulse Ox O2 Delivery O2 Flow Rate FiO2 10/18/16 12:52 36.8 81 21 134/71 97 Room Air Initial VS: Reviewed Head / Eyes: Atraumatic, Normocephalic, PERRL ENT: Mucous membranes moist, Conjunctiva normal, No scleral icterus Neck: Supple, Non-tender, Full range of motion Lymphatic: No lymphadenopathy Extremities: Vascular intact, Neuro intact, No swelling, No tenderness Skin: Warm, Dry, No cyanosis Neurologic: Alert, Oriented, Nonfocal Psychiatric: Mood/affect normal, Behavior normal, Normal thought content General/Constitutional: Awake, Alert Appearance / Presentation: Positive: In pain, Uncomfortable Respiratory / Chest: Atraumatic, Breath sounds NL, Breath sounds = bilat, No respiratory distress, No rales, No rhonchi, No wheezing Cardiovascular: Heart rate NL, Regular rhythm, Heart sounds NL, No murmurs, No rubs, Peripheral circulation NL Abdomen: Soft, No guarding, No rebound, No distention, No hernia, No palpable mass, No pulsatile mass Bowel Sounds / Distention: Positive: Bowel sounds hypoactive Ostomy bag present in the right lower quadrant. No signs of infection. Back: Inspection NL, Non-tender, No CVA tenderness Interpretation & Diagnostics Lab Results Interpretation Result Diagram: 10/18/16 1300 10/18/16 1300 Test 10/18/16 13:00 White Blood Count 5.1th/mm3 (3.8-10.1) Red Blood Count 4.25mil/mm3 (4.40-5.80) Hemoglobin 13.3g/dL (13.8-17.2) Hematocrit 39.1% (41.0-50.0) Mean Corpuscular Volume 92.0fL (81-100) Mean Corpuscular Hemoglobin 31.3pg (27.0-35.0) Mean Corpuscular Hemoglobin Concent 34.0% (32.0-37.0) Red Cell Distribution Width 13.8% (12.3-15.4) Platelet Count 106bil/L (150-400) Neutrophils (%) (Auto) 51.8% (40-74) Lymphocytes (%) (Auto) 32.6% (14-46) Monocytes (%) (Auto) 10.9% (4-12) Eosinophils (%) (Auto) 4.3% (0-5) Basophils (%) (Auto) 0.2% (0-3) Sodium Level 138mEq/L (134-144) Potassium Level 3.8mEq/L (3.5-5.2) Chloride Level 103mEq/L (97-108) Carbon Dioxide Level 22mmol/L (18-29) Blood Urea Nitrogen 12mg/dL (6-24) Creatinine 1.04mg/dL (0.76-1.27) Estimat Glomerular Filtration Rate 79mL/min (>59) Glucose Level 103mg/dL (60-99) Calcium Level 8.6mg/dL (8.5-10.1) Magnesium Level 1.5mg/dL (1.6-2.6) Total Bilirubin 1.0mg/dL (0.0-1.2) Aspartate Amino Transf (AST/SGOT) 29U/L (0-50) Alanine Aminotransferase (ALT/SGPT) 21U/L (0-44) Alkaline Phosphatase 112U/L (25-150) Total Protein 7.1g/dL (6.4-8.4) Albumin 3.9g/dL (3.4-5.0) Lipase 23U/L (13-60) Hold Brand Top Tube Received (Received) X-Ray Abdominal Interpretation IMPRESSION: No bowel obstruction or free air. Dictated by: Titus Sebastian M.D. on 10/18/2016 at 14:01 Interpretation / Wet Read by: Interpret - Radiologist Re-Eval/Medical Decision Source of Hx: Old records Time of Eval: 14:42 Re-Evaluation/Progress Note: Rechecked the patient. He feels much better and feels good enough to go home. Discussed results, diagnosis, and plan for discharge. All questions were addressed. Will administer 1 more liter of IVF prior to discharge. Counseled Regarding: Diagnosis, Lab results, Need for follow-up, When/why to return to ED Discharge & Departure Primary Impression: Exacerbation of Crohn's disease Digestive disease complication type: without complication Qualified Code: K50.90 - Crohn's disease, unspecified, without complications Disposition: Home Vital Signs - All Vital Signs Date Time Temp Pulse Resp B/P Pulse Ox O2 Delivery O2 Flow Rate FiO2 10/18/16 16:07 36.5 71 16 114/65 100 Room Air 10/18/16 15:17 75 14 108/55 96 Room Air 10/18/16 12:52 36.8 81 21 134/71 97 Room Air )( All Prior VS Reviewed: Yes Condition: Stable Patient Instructions: Crohn's Disease (ED) Additional Instructions: Thank you for entrusting us with your care today. Your labs and abdominal x-ray today are reassuring. There is no evidence of a bowel obstruction at this time. Continue to take your normal medications. Make sure to stay hydrated. Followup with your technology strategist at for further management of this. Seek care for any new or concerning symptoms. Referrals: Ricki Rutledge MD (PCP) Scribe Attestation Portions of this note were transcribed by Glenny Mclean. I, Dr. Agustin personally performed the history, physical exam and medical decision-making; I reviewed and confirmed the accuracy of the information in the transcribed note. Signed by: Akila Andrews, 10/18/2016 at 1515. copies to: Ricki Rutledge MD, Shawna L MD October 18, 2016 13:27 Glenny Mclean October 18, 2016 13:31
[2016-10-18 13:48] LABS: Magnesium 1.5 mg/dL (1.6-2.6)
--- NOTE | 2016-10-18 14:04 | DRSVH ---
PROCEDURE: X-RAY ACUTE ABDOMINAL SERIES ([id number]) INDICATIONS: acute abdominal pain TECHNIQUE: One view chest and two views of the abdomen were acquired. COMPARISON: [facility], CT, CT ABD PELVIS W CON, 08/10/2016, 21:17[facility] 3[facility]W, 01/21/2016, 17:19. FINDINGS: Surgical changes and devices: Cervical spine fixation hardware partially visualized. Right central ve nous catheter with the tip projecting at the cavoatrial junction as before. Surgical clips project in the pelvis Chest: Mild bibasilar scarring/atelectasis otherwise lungs are clear. Heart size is normal. No ple ural effusions. No pneumoperitoneum. Abdomen: Bowel gas pattern is normal. No suspicious calcifications. Visualized solid organ contour s appear normal. Bones: No suspicious bony lesions. Bilateral hip degeneration, mild to moderate. There is also lower lumbar degenerative disc disease. IMPRESSION: No bowel obstruction or free air. Dictated by: Titus Sebastian M.D. on 10/18/2016 at 14:01 Approved by: Titus Sebastian M.D. on 10/18/2016 at 14:03
[2016-10-18 15:17] VITALS: BP 108/55; PULSE 75; RESP 14; O2SAT 96
[2016-10-18] MEDS ORDERED: HepLOK Flush 100 unit/mL 5 mL Inj ONE (16:02)
[2016-10-18 16:07] VITALS: BP 114/65; PULSE 71; RESP 16; O2SAT 100
== END 2016-10-18 16:09 | disposition home or self-care (01) ==
LOC: SED 12:46
DX: K50.90 Crohn's disease, unspecified, without complications (principal); K21.9 Gastro-esophageal reflux disease without esophagitis; I10 Essential (primary) hypertension; Z79.899 Other long term (current) drug therapy; Z88.2 Allergy status to sulfonamides; Z88.5 Allergy status to narcotic agent
CPT/HCPCS: 36415; 74022; 80053; 83690; 83735; 85025; 96361; 96372; 96374; 96375; 99285; J1170; J2405; J7030

== ENCOUNTER 2016-10-27 14:30 | Emergency (ER) | payer OTHER, MEDICARE ==
[~2016-10-27] VITALS: Ht 182.9 cm; Wt 87.7 kg
[2016-10-27 14:33] VITALS: BP 149/92; PULSE 99; RESP 16; O2SAT 98
[2016-10-27] MEDS ORDERED: Ondansetron 2 mg/mL 2 mL Inj ONE (14:38)
[2016-10-27] MEDS ORDERED: HYDROmorphone 0.5 mg/0.5 mL iSecure Syringe ONE (14:38)
[2016-10-27] MEDS ORDERED: Ondansetron 2 mg/mL 2 mL Inj IVPUSH ONE ×2 (15:35→16:00)
[2016-10-27] MEDS ORDERED: HYDROmorphone 1 mg/mL Inj IVPUSH PRN (15:40)
[2016-10-27] MEDS ORDERED: MetoCLOpramide 5 mg/mL 2 mL Inj ONE (17:55)
[2016-10-27] MEDS ORDERED: HepLOK Flush 100 unit/mL 5 mL Inj ONE (19:10)
--- NOTE | 2016-10-27 19:22 | ED.REPORT ---
HPI-Abd Pain M 40 and Over Date of Service October 27, 2016 ED Provider: Young Doty PA-C Crow is a 55-year-old male with history of Crohn's disease presenting to the emergency department for abdominal pain, nausea and vomiting. He states this is his usual Crohn's flare and complains of pain in the right quadrants as well as nausea and vomiting since early this morning. Refractory to treatment with Zofran, oxycodone at home. Denies fever, stool changes, blood in his vomit. Nursing Notes Stated Complaint: CROHNS FLARE Chief Complaint: Male Abdominal Pain Nursing Notes Reviewed: Yes Allergies: Coded Allergies: Sulfa (Sulfonamide Antibiotics) (Verified Allergy, Severe, PALPITATIONS, FLUSHING,RASH, 10/27/16) morphine (Verified Adverse Reaction, Severe, NAUSEA, 10/27/16) Scheduled Azathioprine (Azathioprine) 50 Mg Tablet 100 MG PO DAILY Cetirizine (Cetirizine) 5 Mg Tablet 10 MG PO HS Cholecalciferol (Vitamin D3) (Vitamin D3) 2,000 Unit Tablet 2,000 UNIT PO BID Clotrimazole 1% (Gyne-Lotrimin 7 1%) 45 Gm Cream.appl 1 APPLIC TP BID 1% Cyanocobalamin (Vitamin B-12) (B-12) 500 Mcg Tab.rapdis 2,500 MCG SL DAILY Epinephrine (Epipen 2-Jeyson) 0.3 Mg/0.3 Ml Auto.injct 0.3 MG IJ PRN Fluticasone Propionate (Fluticasone Propionate Nasal) 16 Gm [place].susp 2 SPRAY NOSTRIL DAILY Multivitamin (Once Daily) 1 Each Tablet 1 EACH PO MONWEDFRI Omeprazole (Omeprazole) 40 Mg Capsule.dr 40 MG PO DAILY Potassium Chloride (Potassium Chloride) 20 Meq Tab.er.prt 20 MEQ PO BID Venlafaxine ER (Venlafaxine ER) 37.5 Mg Cap.er.24h 37.5 MG PO HS Zinc Gluconate (Zinc) Unknown Strength Tablet 50 MG PO BID Scheduled PRN Diphenoxylate/Atropine (Diphenoxylate-Atrop 2.5-0.025) 2.5 Mg Tablet 1-2 TAB PO TID PRN PRN For Diarrhea or Loose Stool Ondansetron ODT (Ondansetron ODT) 4 Mg Tab.rapdis 4-8 MG PO BID PRN PRN For Nausea Promethazine (Promethazine) 12.5 Mg Tablet 12.5 MG PO Q6H PRN PRN PRN Triamcinolone Acet (Triamcinolone Acetonide Ointment) 1 Applic/0.25 Gm Oint 1 APPLIC TOP BID PRN PRN skin irritation 0.1% oxyCODONE (oxyCODONE) 5 Mg Tablet 5 MG PO Q6H PRN PRN For Pain General Time Seen by MD: 19:18 Chief Complaint Abdominal pain Sudden in Onset?: No Past Medical History Past Medical History Notes: GI: Dr. Jemal Esquivel, Past Medical History 1. Crohn's disease 2. Asthma 3. GERD 4. HTN 5. Depression 6. Hx of DVT and PE 2014, previously on warfarin 7. Nasal allergies 8. SBO's Past Surgical History 1. LE Vein Stripping 2. Cervical Laminectomy 3. Total Colectomy with ileostomy 4. Appendectomy 5. Bilateral Hernia Repair 6. Cholecystectomy 7. Laparotomy with lysis of adhesions 2007 Family History Sister - CHF Brother - [place] Mother - Emphysema, Lung Cancer, Stomach Cancer Smoking History Never Smoker Social History Alcohol Use: "Social" Drug Use: Denies drug use Other Social History: Local resident Ambulatory Status Independent Review of Systems Review of Systems Note: Negative unless stated otherwise in history of present illness Physical Exam General: Tired appearing, well developed, well nourished, mild distress. Lying on the gurney in the dark, occasionally retches. Head: Atraumatic, normocephalic. Eyes: No scleral icterus or injection. No discharge. Vision grossly intact. ENT: Voice clear, hearing grossly intact. Respiratory: Regular rate and rhythm. Breath sounds present, clear to auscultation and equal bilaterally. No respiratory distress. No increased work of breathing, speaks in complete sentences. Cardiovascular: Regular rate and rhythm, without murmur, gallop or rub. No pedal edema. Gastrointestinal: Abdomen flat mild to moderately tender in the right quadrants. Bowel sounds hyperactive. Skin: Warm and dry. Neurological: Grossly nonfocal. Psychological: Alert and oriented. Speech appropriate, linear and logical. Behavior appropriate. Initial Vital Signs Vital Signs (First) Date Time Temp Pulse Resp B/P Pulse Ox O2 Delivery O2 Flow Rate FiO2 10/27/16 14:33 36.6 99 16 149/92 98 Room Air Initial VS: Vital signs abnormal (elevated blood pressure) Re-Eval/Medical Decision Med Decision/Clinical Course 55-year-old male with history of Crohn's disease well known to this department presents with chief complaint of abdominal pain, nausea, vomiting. Patient states symptoms began early this morning, and is consistent with his usual Crohn 's flare. Refractory to Zofran, oxycodone. Physical examination reveals mild/ moderate tenderness and right quadrants. Patient responds well to 2 L normal saline, metoclopramide, Dilaudid. He feels significantly improved after treatment and wishes to be discharged to home. I believe this is usual Crohn's flare and I have low concern for possible cholecystitis, appendicitis, diverticulitis. Weight is stable and safe to be discharged home. Discussed primary care follow-up, emergency return precautions. Patient verbalizes understanding of and consent to the plan Discharge & Departure Primary Impression: Generalized abdominal pain Additional Impression: Elevated blood pressure reading Disposition: Home Vital Signs - All Vital Signs Date Time Temp Pulse Resp B/P Pulse Ox O2 Delivery O2 Flow Rate FiO2 10/27/16 19:34 75 16 114/58 95 Room Air 10/27/16 14:33 36.6 99 16 149/92 98 Room Air )( All Prior VS Reviewed: Yes Condition: Stable Patient Instructions: Acute Abdominal Pain (ED) Additional Instructions: Evaluation in the emergency department for abdominal pain included history, physical examination and blood tests, all of which are reassuring this is unlikely because by immediately dangerous condition. I believe this is, as you have told me, a flare of her Crohn's disease. I believe you are stable and safe to be discharged to home. Continue to treat your pain and nausea according to your established protocol. Follow-up with your primary care provider if you have any further needs. Return to emergency department for any new or worsening symptoms including return of worsening of your abdominal pain, repeated vomiting, bloody/tarry stool, fever. Referrals: Ricki Rutledge MD (PCP) EDSupervising Provider for APC: Ge Pandey DO copies to: Ricki Rutledge MD, Seth PA-C October 27, 2016 19:22
[2016-10-27 19:34] VITALS: BP 114/58; PULSE 75; RESP 16; O2SAT 95
== END 2016-10-27 19:25 | disposition home or self-care (01) ==
LOC: SED 14:30
DX: R10.84 Generalized abdominal pain (principal); I10 Essential (primary) hypertension; R11.2 Nausea with vomiting, unspecified; K50.90 Crohn's disease, unspecified, without complications; J45.909 Unspecified asthma, uncomplicated; K21.9 Gastro-esophageal reflux disease without esophagitis; Z90.49 Acquired absence of other specified parts of digestive tract; Z88.2 Allergy status to sulfonamides; Z88.5 Allergy status to narcotic agent
CPT/HCPCS: 96374; 96375; 96376; 99284; J1170; J2405

== ENCOUNTER 2016-11-23 17:17 | Emergency (ER) | payer OTHER, MEDICARE ==
[~2016-11-23] VITALS: Ht 182.9 cm; Wt 89.1 kg
[2016-11-23 17:19] VITALS: BP 132/70; PULSE 89; RESP 15; O2SAT 99
[2016-11-23] MEDS ORDERED: 0.9% Sodium Chloride 1,000 ML IV ONE (17:23)
[2016-11-23] MEDS ORDERED: Ondansetron 2 mg/mL 2 mL Inj IVPUSH PRN (17:25)
[2016-11-23 17:54] LABS: BASOPHILS % (AUTO) 0.5 % (0-3); EOSINOPHILS % (AUTO) 4.6 % (0-5); MONOCYTES % (AUTO) 11.3 % (4-12); Mean Corpuscular Hemoglobin 32.1 pg (27.0-35.0); Mean Corpuscular Volume 93.2 fL (81-100); NEUTROPHILS % (AUTO) 46.2 % (40-74); Platelet Count 103 bil/L (150-400)
[2016-11-23] MEDS: HYDROmorphone 1 mg/mL Inj IVPUSH PRN ×2 (18:09→19:23)
[2016-11-23 18:15] LABS: Magnesium 1.3 mg/dL (1.6-2.6)
--- NOTE | 2016-11-23 18:27 | ED.REPORT ---
HPI-Abd Pain M 40 and Over Date of Service Nov 23, 2016 ED Provider: Everett Lilly MD Patient is a 55 year old male with a hx of Crohn's who presents to the ED complaining of abdominal pain onset this morning. Associated symptoms include diarrhea, vomiting, and a rash on his forearms. His rash started on his face 2 weeks ago but cleared with doxycycline. After the antibiotics the rash presented on his arm (4 days ago), and yesterday it spread to his other arm. He has been using mupirocin on the rash for a week. He reports that the rash feels hot. He denies fever, hematochezia, cough, dysuria, itching, or any other symptoms. He has had similar symptoms previously. He is not taking immunosuppressants currently. Nursing Notes Stated Complaint: CROHNS Chief Complaint: Male Abdominal Pain Nursing Notes Reviewed: Yes Allergies: Coded Allergies: Sulfa (Sulfonamide Antibiotics) (Verified Allergy, Severe, PALPITATIONS, FLUSHING,RASH, 11/23/16) morphine (Verified Adverse Reaction, Severe, NAUSEA, 11/23/16) Scheduled Azathioprine (Azathioprine) 50 Mg Tablet 100 MG PO DAILY Cetirizine (Cetirizine) 5 Mg Tablet 10 MG PO HS Cholecalciferol (Vitamin D3) (Vitamin D3) 2,000 Unit Tablet 2,000 UNIT PO BID Cyanocobalamin (Vitamin B-12) (B-12) 500 Mcg Tab.rapdis 2,500 MCG SL DAILY Fluticasone Propionate (Fluticasone Propionate Nasal) 16 Gm [place].susp 2 SPRAY NOSTRIL DAILY Multivitamin (Once Daily) 1 Each Tablet 1 EACH PO SUNWEDF Omeprazole (Omeprazole) 40 Mg Capsule.dr 40 MG PO DAILY Potassium Chloride (Potassium Chloride) 20 Meq Tab.er.prt 20 MEQ PO BID Venlafaxine ER (Venlafaxine ER) 37.5 Mg Cap.er.24h 37.5 MG PO HS Zinc Gluconate (Zinc) Unknown Strength Tablet 50 MG PO BID Scheduled PRN Diphenoxylate/Atropine (Diphenoxylate-Atrop 2.5-0.025) 2.5 Mg Tablet 1-2 TAB PO TID PRN PRN For Diarrhea or Loose Stool Ondansetron ODT (Ondansetron ODT) 4 Mg Tab.rapdis 4-8 MG PO BID PRN PRN For Nausea Promethazine (Promethazine) 12.5 Mg Tablet 12.5 MG PO Q6H PRN PRN PRN Triamcinolone Acet (Triamcinolone Acetonide Ointment) 1 Applic/0.25 Gm Oint 1 APPLIC TOP BID PRN PRN skin irritation 0.1% oxyCODONE (oxyCODONE) 5 Mg Tablet 5 MG PO Q6H PRN PRN For Pain General Time Seen by MD: 17:23 Chief Complaint Abdominal pain Hx Obtained From: Patient, Spouse Arrived By: Walk-in Sudden in Onset?: Yes Onset Occurred: 9 - 12 hours ago Symptom Duration: Since onset Recent Healthcare: Recent doctor visit Similar Sx Previous: Yes Risk Factors )( AAA Risk Stratification HypertensionNo Smoking Risk factors reviewed Past Medical History Past Medical History Notes: GI: Dr. Jemal Esquivel, home IV hydration Past Medical History 1. Crohn's disease 2. Asthma 3. GERD 4. HTN 5. Depression 6. Hx of DVT and PE 2014, previously on warfarin 7. Nasal allergies 8. SBO's Past Surgical History 1. LE Vein Stripping 2. Cervical Laminectomy 3. Total Colectomy with ileostomy 4. Appendectomy 5. Bilateral Hernia Repair 6. Cholecystectomy 7. Laparotomy with lysis of adhesions 2007 8. Bowel surg x4 9. Tonsillectomy and Adenoidectomy 10. R rotator cuff Family History Sister - CHF Brother - [place] Mother - Emphysema, Lung Cancer, Stomach Cancer Smoking History Never Smoker Social History Alcohol Use: "Social" Drug Use: Denies drug use Other Social History: Local resident Ambulatory Status Independent Review of Systems Constitutional: Denies: Fever Respiratory: Denies: Non-productive cough GI: Reports: Abdominal pain, Diarrhea, Vomiting, Denies: Hematochezia Male: Denies Dysuria Complete sys rev & neg: except as marked. Skin: Reports Rash, Denies Itching Physical Exam Initial Vital Signs Vital Signs (First) Date Time Temp Pulse Resp B/P Pulse Ox O2 Delivery O2 Flow Rate FiO2 11/23/16 17:19 36.4 89 15 132/70 99 Room Air Initial VS: Reviewed, Vital signs normal Head / Eyes: Atraumatic, Normocephalic Neck: Full range of motion Neurologic: Alert, Oriented, Nonfocal General/Constitutional: Awake, Alert, Well developed Respiratory / Chest: Breath sounds NL, Breath sounds = bilat, No respiratory distress Port in R anterior chest, site looks clean Cardiovascular: Heart rate NL, Regular rhythm, Heart sounds NL, No gallop, No murmurs, No rubs Abdomen: Soft Tenderness/Guarding/Rebound: Positive: Tender LLQ..., Tender RLQ... Hyperactive bowel sounds midline surgical scare with ileostomy in place Back: Atraumatic Mouth: Positive: Mucous membranes dry Skin: Warm, Dry Color / Condition: Positive: Rash present Rash / Lesion Notes: mildly erythematous rash on forearms, no crusting or abscess just Raised erythematous areas Similar presentation on face that is mostly healed, some areas scabbed over and few pustule areas. Interpretation & Diagnostics Lab Results Interpretation Result Diagram: 11/23/16 1737 11/23/16 1737 Test 11/23/16 17:37 11/23/16 20:37 White Blood Count 3.9th/mm3 (3.8-10.1) Red Blood Count 3.83mil/mm3 (4.40-5.80) Hemoglobin 12.3g/dL (13.8-17.2) Hematocrit 35.7% (41.0-50.0) Mean Corpuscular Volume 93.2fL (81-100) Mean Corpuscular Hemoglobin 32.1pg (27.0-35.0) Mean Corpuscular Hemoglobin Concent 34.5% (32.0-37.0) Red Cell Distribution Width 14.1% (12.3-15.4) Platelet Count 103bil/L (150-400) Neutrophils (%) (Auto) 46.2% (40-74) Lymphocytes (%) (Auto) 37.1% (14-46) Monocytes (%) (Auto) 11.3% (4-12) Eosinophils (%) (Auto) 4.6% (0-5) Basophils (%) (Auto) 0.5% (0-3) Sodium Level 138mEq/L (134-144) Potassium Level 3.7mEq/L (3.5-5.2) Chloride Level 105mEq/L (97-108) Carbon Dioxide Level 21mmol/L (18-29) Blood Urea Nitrogen 19mg/dL (6-24) Creatinine 0.98mg/dL (0.76-1.27) Estimat Glomerular Filtration Rate 84mL/min (>59) Glucose Level 82mg/dL (60-99) Calcium Level 9.0mg/dL (8.5-10.1) Magnesium Level 1.3mg/dL (1.6-2.6) Total Bilirubin 0.9mg/dL (0.0-1.2) Aspartate Amino Transf (AST/SGOT) 33U/L (0-50) Alanine Aminotransferase (ALT/SGPT) 23U/L (0-44) Alkaline Phosphatase 132U/L (25-150) Total Protein 7.0g/dL (6.4-8.4) Albumin 3.7g/dL (3.4-5.0) Lipase 24U/L (13-60) Hold Brand Top Tube Received (Received) Urine Color Yellow (YELLOW) Urine Appearance Clear (CLEAR,HAZY) Urine pH 5.5 (5.0-8.0) Urine Specific [place] 1.020 (1.003-1.035) Urine Protein Negativemg/dL (NEG,TRACE) Urine Glucose (UA) Negativemg/dL (NEGATIVE) Urine Ketones Negativemg/dL (NEGATIVE) Urine Occult Blood Negative (NEGATIVE) Urine Nitrite Negative (NEGATIVE) Urine Bilirubin Negative (NEGATIVE) Urine Urobilinogen Normalmg/dL (NORMAL) Urine Leukocyte Esterase Negative (NEGATIVE) Urine RBC 0-2/hpf (0-2) Urine WBC 0-5/hpf (0-5) Urine Epithelial Cells Occasional/hpf (NONE-MOD) Urine Crystals None seen (NONE SEEN) Urine Bacteria None/hpf (NONE-FEW) Urine Hyaline Casts None/lpf (NONE) Urine Granular Casts None seen (NONE SEEN) Urine Waxy Casts None seen (NONE SEEN) Urine Red Blood Cell Casts None seen (NONE SEEN) Urine White Blood Cell Casts None seen (NONE SEEN) Urine Mucus Present (None Seen) Urine Trichomonas None seen (NONE SEEN) Urine Yeast None (NONE SEEN) Urinalysis Comment None Urine Culture Reflexed Not indicated Re-Eval/Medical Decision Time of Eval: 20:10 )( Re-Eval Abdomen: Soft Re-Evaluation/Progress Note: Rechecked patient. His symptoms have resolved. Discussed plan for discharge. Patient understands and agrees with plan. All questions addressed at this time. Counseled Regarding: Diagnosis, Lab results, Need for follow-up, When/why to return to ED Discharge & Departure Primary Impression: Abdominal pain Abdominal location: unspecified location Qualified Code: R10.9 - Unspecified abdominal pain Additional Impressions: Exacerbation of Crohn's disease Digestive disease complication type: unspecified complication Qualified Code : K50.919 - Crohn's disease, unspecified, with unspecified complications Rash Disposition: Home Vital Signs - All Vital Signs Date Time Temp Pulse Resp B/P Pulse Ox O2 Delivery O2 Flow Rate FiO2 11/23/16 20:53 77 16 120/66 99 Room Air 11/23/16 18:41 80 125/59 94 Room Air 11/23/16 17:19 36.4 89 15 132/70 99 Room Air )( All Prior VS Reviewed: Yes Condition: Stable Additional Instructions: Thank you for entrusting us with your care. Your visit included IV hydration, evaluation, and lab work. Results are reassuring and treatment with fluids, nausea and pain meds has been helpful. continue previous home medications. Contact Dr Rutledge's office for a dematology referral. Keep using mupriocin on rash in the meantime. Return to ED for fevers, uncontrolled vomiting. Referrals: Ricki Rutledge MD (PCP) Scribe Attestation Portions of this note were transcribed by Alyssa Oconnor. I, Dr. Lilly personally performed the history, physical exam and medical decision-making; I reviewed and confirmed the accuracy of the information in the transcribed note. Signed by: Alyssa Oconnor 11/23/162047 copies to: Ricki Rutledge MD, Donald L MD Nov 23, 2016 18:27 ALYSSA OCONNOR Nov 23, 2016 18:43
[2016-11-23 18:41] VITALS: BP 125/59; PULSE 80; O2SAT 94
[2016-11-23 20:47] LABS: APPEARANCE,URINE CLEAR (CLEAR,HAZY); COLOR,URINE YELLOW (YELLOW); OCCULT BLOOD,URINE NEGATIVE (NEGATIVE); PH,URINE 5.5 (5.0-8.0); UROBILINOGEN,URINE NORMAL (NORMAL)
[2016-11-23 20:53] VITALS: BP 120/66; PULSE 77; RESP 16; O2SAT 99
== END 2016-11-23 20:55 | disposition home or self-care (01) ==
LOC: SED 17:17
DX: K50.919 Crohn's disease, unspecified, with unspecified complications (principal); R21 Rash and other nonspecific skin eruption; I10 Essential (primary) hypertension; K21.9 Gastro-esophageal reflux disease without esophagitis; F32.9 Major depressive disorder, single episode, unspecified; J45.909 Unspecified asthma, uncomplicated; Z90.49 Acquired absence of other specified parts of digestive tract; Z88.2 Allergy status to sulfonamides; Z88.5 Allergy status to narcotic agent
CPT/HCPCS: 36415; 80053; 81000; 83690; 83735; 85025; 96361; 96374; 96375; 96376; 99284; J1170; J2405; J7030

== ENCOUNTER 2016-12-30 13:30 | Emergency (ER) | payer OTHER, MEDICARE ==
[~2016-12-30] VITALS: Ht 182.9 cm; Wt 85.0 kg
[~2016-12-30 13:30] MED LIST changes: -CLOT45CR7 TP; -EPIN0.3P2 IJ; -REMICADE IV
[2016-12-30 13:33] VITALS: BP 150/79; PULSE 89; RESP 20; O2SAT 96
--- NOTE | 2016-12-30 14:23 | ED.REPORT ---
HPI-Abd Pain M 40 and Over Date of Service Dec 30, 2016 ED Provider: Dr. Rolly Berg The patient is a 56 year old male w/ a hx of Crohn's disease, asthma, GERD, HTN , and depression who presents to the ED due to a Crohn's disease flare up for the past 3 days. Associated symptoms include diarrhea, vomiting, and abdominal pain. He denies hematochezia and fever. Nursing Notes Stated Complaint: CROHNS FLARE UP Chief Complaint: Male Abdominal Pain Nursing Notes Reviewed: Yes Allergies: Coded Allergies: Sulfa (Sulfonamide Antibiotics) (Verified Allergy, Severe, PALPITATIONS, FLUSHING,RASH, 11/23/16) morphine (Verified Adverse Reaction, Severe, NAUSEA, 11/23/16) Scheduled Azathioprine (Azathioprine) 50 Mg Tablet 100 MG PO DAILY Cetirizine (Cetirizine) 5 Mg Tablet 10 MG PO HS Cholecalciferol (Vitamin D3) (Vitamin D3) 2,000 Unit Tablet 2,000 UNIT PO BID Cyanocobalamin (Vitamin B-12) (B-12) 500 Mcg Tab.rapdis 2,500 MCG SL DAILY Fluticasone Propionate (Fluticasone Propionate Nasal) 16 Gm [place].susp 2 SPRAY NOSTRIL DAILY Multivitamin (Once Daily) 1 Each Tablet 1 EACH PO MONWEDFRI Omeprazole (Omeprazole) 40 Mg Capsule.dr 40 MG PO DAILY Potassium Chloride (Potassium Chloride) 20 Meq Tab.er.prt 20 MEQ PO BID Venlafaxine ER (Venlafaxine ER) 37.5 Mg Cap.er.24h 37.5 MG PO HS Zinc Gluconate (Zinc) Unknown Strength Tablet 50 MG PO BID Scheduled PRN Diphenoxylate/Atropine (Diphenoxylate-Atrop 2.5-0.025) 2.5 Mg Tablet 1-2 TAB PO TID PRN PRN For Diarrhea or Loose Stool Ondansetron ODT (Ondansetron ODT) 4 Mg Tab.rapdis 4-8 MG PO BID PRN PRN For Nausea Promethazine (Promethazine) 12.5 Mg Tablet 12.5 MG PO Q6H PRN PRN PRN Triamcinolone Acet (Triamcinolone Acetonide Ointment) 1 Applic/0.25 Gm Oint 1 APPLIC TOP BID PRN PRN skin irritation 0.1% oxyCODONE (oxyCODONE) 5 Mg Tablet 5 MG PO Q6H PRN PRN For Pain General Time Seen by MD: 14:22 Chief Complaint Other (Crohn's disease flare up) Hx Obtained From: Patient Arrived By: Walk-in Sudden in Onset?: Yes Onset Occurred: 3 days ago Symptom Duration: Since onset Progression since Onset: Gradually worsening Location: : Diffuse Quality: Painful Severity: Current: Severe Associated with: Reports: Diarrhea, Vomiting Recent Healthcare: Recent doctor visit Similar Sx Previous: Yes Past Medical History Past Medical History Notes: GI: Dr. Jemal Esquivel, home IV hydration Past Medical History 1. Crohn's disease 2. Asthma 3. GERD 4. HTN 5. Depression 6. Hx of DVT and PE 2014, previously on warfarin 7. Nasal allergies 8. SBO's Past Surgical History 1. LE Vein Stripping 2. Cervical Laminectomy 3. Total Colectomy with ileostomy 4. Appendectomy 5. Bilateral Hernia Repair 6. Cholecystectomy 7. Laparotomy with lysis of adhesions 2007 8. Bowel surg x4 9. Tonsillectomy and Adenoidectomy 10. R rotator cuff Family History Sister - CHF Brother - [place] Mother - Emphysema, Lung Cancer, Stomach Cancer Smoking History Never Smoker Social History Alcohol Use: "Social" Drug Use: Denies drug use Other Social History: Local resident Ambulatory Status Independent Review of Systems Constitutional: Denies: Chills, Fever GI: Reports: Abdominal pain, Diarrhea, Vomiting, Denies: Hematochezia Complete sys rev & neg: except as marked. Physical Exam Initial Vital Signs Vital Signs (First) Date Time Temp Pulse Resp B/P Pulse Ox O2 Delivery O2 Flow Rate FiO2 12/30/16 13:33 37 89 20 150/79 96 Room Air Initial VS: Reviewed General/Constitutional: Awake, Alert, Cooperative Distress / Hydration: Positive: Distress moderate Respiratory / Chest: Atraumatic, Breath sounds NL, Breath sounds = bilat, No respiratory distress, No rales, No rhonchi, No wheezing Cardiovascular: Heart rate NL, Regular rhythm, Heart sounds NL Tenderness/Guarding/Rebound: Positive: Tender LUQ..., Tender RUQ... tender to light touch in lower abdomen Back: Atraumatic, Inspection NL, Full range of motion Head / Eyes: Atraumatic, Normocephalic Skin: Atraumatic, No rash Neurologic: Oriented X3, Speech NL, No motor deficits Upper Extremity / MS: Atraumatic, Inspection NL, Full range of motion Lower Extremity / Pelvis / MS: Atraumatic, Inspection NL, Full range of motion Interpretation & Diagnostics Lab Results Interpretation Result Diagram: 12/30/16 1320 12/30/16 1320 Test 12/30/16 13:20 White Blood Count 5.3th/mm3 (3.8-10.1) Red Blood Count 4.01mil/mm3 (4.40-5.80) Hemoglobin 13.0g/dL (13.8-17.2) Hematocrit 37.5% (41.0-50.0) Mean Corpuscular Volume 93.5fL (81-100) Mean Corpuscular Hemoglobin 32.4pg (27.0-35.0) Mean Corpuscular Hemoglobin Concent 34.7% (32.0-37.0) Red Cell Distribution Width 14.5% (12.3-15.4) Platelet Count 105bil/L (150-400) Neutrophils (%) (Auto) 52.1% (40-74) Lymphocytes (%) (Auto) 32.8% (14-46) Monocytes (%) (Auto) 9.7% (4-12) Eosinophils (%) (Auto) 5.0% (0-5) Basophils (%) (Auto) 0.2% (0-3) Sodium Level 136mEq/L (134-144) Potassium Level 4.5mEq/L (3.5-5.2) Chloride Level 104mEq/L (97-108) Carbon Dioxide Level 19mmol/L (18-29) Blood Urea Nitrogen 19mg/dL (6-24) Creatinine 1.21mg/dL (0.76-1.27) Estimat Glomerular Filtration Rate 66mL/min (>59) Glucose Level 150mg/dL (60-99) Calcium Level 9.3mg/dL (8.5-10.1) Magnesium Level 1.4mg/dL (1.6-2.6) Total Bilirubin 1.0mg/dL (0.0-1.2) Aspartate Amino Transf (AST/SGOT) 34U/L (0-50) Alanine Aminotransferase (ALT/SGPT) 26U/L (0-44) Alkaline Phosphatase 133U/L (25-150) Total Protein 7.5g/dL (6.4-8.4) Albumin 4.0g/dL (3.4-5.0) Lipase 30U/L (13-60) Hold Brand Top Tube Received (Received) Re-Eval/Medical Decision Time of Eval: 16:27 Patient Status: Condition improved, Complete relief, Pain improved Re-Evaluation/Progress Note: Pt rechecked. His pain is much improved and he requests discharge. Counseled Regarding: Diagnosis, Lab results, Need for follow-up, When/why to return to ED Discharge & Departure Primary Impression: Crohn's disease Additional Impression: Abdominal pain Disposition: Home Vital Signs - All Vital Signs Date Time Temp Pulse Resp B/P Pulse Ox O2 Delivery O2 Flow Rate FiO2 12/30/16 15:20 36.7 89 15 135/69 98 Room Air 12/30/16 13:33 37 89 20 150/79 96 Room Air )( All Prior VS Reviewed: Yes Condition: Stable Patient Instructions: Crohn Disease (ED) Additional Instructions: Thank you for entrusting us with your care today. I am sorry you have had another Crohn's flareup. Do not hesitate to return to the Emergency Department if you experience any new or worsening symptoms. We are always here to help! Referrals: Ricki Rutledge MD (PCP) Scribe Attestation Portion of this note were transcribed by Libby Phillips. I, Dr. Berg, personally performed the history, physical exam, and medical decision-making: I reviewed and confirmed the accuracy for the information in the transcribed note. Signed by: augusto De La Cruz, 12/30/16 1600 copies to: Ricki Rutledge MD, Kirk H MD Dec 30, 2016 14:23 Libby Phillips Dec 30, 2016 14:30
[2016-12-30] MEDS ORDERED: Ondansetron 2 mg/mL 2 mL Inj ONE (14:25)
[2016-12-30] MEDS ORDERED: Promethazine Inj 50 MG in 0.9% Sodium Chloride-Pha MIX 100 ML IV ONE ×2 (14:25→15:00)
[2016-12-30] MEDS ORDERED: Ondansetron 2 mg/mL 2 mL Inj IVPUSH ONE (14:25)
[2016-12-30] MEDS: 0.9% Sodium Chloride 1,000 ML IV SCH ×2 (14:32→15:04)
[2016-12-30 14:36] LABS: BASOPHILS % (AUTO) 0.2 % (0-3); MONOCYTES % (AUTO) 9.7 % (4-12); Mean Corpuscular Hemoglobin 32.4 pg (27.0-35.0); Mean Corpuscular Volume 93.5 fL (81-100); NEUTROPHILS % (AUTO) 52.1 % (40-74); Platelet Count 105 bil/L (150-400)
[2016-12-30] MEDS ORDERED: HYDROmorphone 1 mg/mL Inj IVPUSH ONE ×2 (14:40→16:35)
[2016-12-30 14:53] LABS: Magnesium 1.4 mg/dL (1.6-2.6)
[2016-12-30 15:20] VITALS: BP 135/69; PULSE 89; RESP 15; O2SAT 98
[2016-12-30] MEDS ORDERED: HepLOK Flush 100 unit/mL 5 mL Inj ONE (16:53)
[2016-12-30 17:06] VITALS: BP 116/61; PULSE 83; RESP 20; O2SAT 96
== END 2016-12-30 17:08 | disposition home or self-care (01) ==
LOC: SED 13:30
DX: K50.90 Crohn's disease, unspecified, without complications (principal); I10 Essential (primary) hypertension; J45.909 Unspecified asthma, uncomplicated; K21.9 Gastro-esophageal reflux disease without esophagitis; F32.9 Major depressive disorder, single episode, unspecified; Z90.49 Acquired absence of other specified parts of digestive tract; Z88.2 Allergy status to sulfonamides; Z88.5 Allergy status to narcotic agent
CPT/HCPCS: 36415; 80053; 83690; 83735; 85025; 96374; 96375; 96376; 99285; J1170; J2405; J2550; J7030

== ENCOUNTER 2017-01-24 17:39 | Emergency (ER) | payer OTHER ==
[~2017-01-24] VITALS: Ht 182.9 cm; Wt 85.0 kg
[2017-01-24 17:56] VITALS: BP 139/60; PULSE 74; RESP 14; O2SAT 98
[2017-01-24] MEDS ORDERED: Ondansetron 2 mg/mL 2 mL Inj IVPUSH ONE (18:05)
[2017-01-24] MEDS ORDERED: 0.9% Sodium Chloride 1,000 ML IV ONE ×2 (18:05→20:00)
[2017-01-24] MEDS: HYDROmorphone 0.5 mg/0.5 mL iSecure Syringe IVPUSH PRN ×3 (18:09→18:45)
[2017-01-24 18:28] LABS: BASOPHILS % (AUTO) 0.3 % (0-3); EOSINOPHILS % (AUTO) 4.2 % (0-5); MONOCYTES % (AUTO) 12.1 % (4-12); Mean Corpuscular Hemoglobin 31.6 pg (27.0-35.0); Mean Corpuscular Volume 91.3 fL (81-100); NEUTROPHILS % (AUTO) 52.6 % (40-74); Platelet Count 112 bil/L (150-400)
[2017-01-24 18:47] LABS: Magnesium 1.3 mg/dL (1.6-2.6)
--- NOTE | 2017-01-24 19:33 | DRSVH ---
PROCEDURE: CT ABDOMEN AND PELVIS WITH CONTRAST ([id number]) INDICATIONS: abd pain, crohns dz TECHNIQUE: After the administration of intravenous contrast, 5 mm thick sections acquired from the diaphragm to the symphysis. 5 mm coronal and sagittal reformats were acquired. For radiation dose reduction, the following was used: automated exposure control, adjustment of mA and/or kV according to patient siz e. COMPARISON: [facility], CR, ABD W/ERECT +/OR DECB, 03/15/2008, 7:53. [facility], ABD/PELVIS W/CON (PNL), 03/12/2008, 6:41. [facility], CR, ABD ACUTE SERIES, 12/09, 9:26. [facility], CR, XR ABD ACUTE SERIES 3VW, 10/18/2016, 13:29. [facility], CT, CT ABD PELVIS W CON, 08/10/2016, 21:17. [facility], CT, CT ABD PELVIS W CON, 01/21/2016, 18:50. [facility], CR, XR ABD ACUTE SERIES 3VW, 01/21/2016, 17:19. [facility], CT, CT ABD PELVIS W CON, 08/02/2015, 0:19. [facility], CR, XR ABD ACUTE SE ATILIO 3VW, 05/11/2015, 12:16. [facility], CT, ABD/PELVIS W/CON (PNL), 07/21/2014, 11:14. [facility], CT, ABD/PELVIS W/CON (PNL), 07/23/2013, 20:33. [facility], CR, AB D ACUTE SERIES, 07/23/2013, 7:44. [facility], CR, SMALL BOWEL, BARIUM, 06/27/2012, 8:57. FINDINGS: Image quality: Excellent. ABDOMEN: Lung bases: Lung bases are clear. Heart size is normal. Solid organs: Liver and spleen are normal in enhancement. Spleen is mildly enlarged measuring 13.7 c m. Gallbladder is surgically absent. Biliary system is non dilated. Pancreas enhances normally. N o adrenal nodules. Kidneys demonstrate normal size and enhancement, without hydronephrosis. Peritoneum and bowel: Postsurgical changes compatible with colectomy and right lower quadrant entero stomy noted. No free fluid or air. Nodes and vessels: No retroperitoneal or mesenteric adenopathy by size criteria. Aorta and inferior vena cava are normal in size. Miscellaneous: No ventral hernias. PELVIS: Genitourinary: Bladder wall thickness is normal. Miscellaneous: No adenopathy. Fat containing left inguinal hernia is noted. Bones: No suspicious bony lesions. No vertebral body compression fractures. Lower spine degenerativ e disease and facet arthropathy noted. IMPRESSION: 1. Status post colectomy and right lower quadrant ostomy formation. 2. No definite acute disease process identified. 3. No dilated loops of bowel 4. No free fluid or air. 5. No inflammatory changes. 6. Mild splenomegaly. Please correlate with clinical data. Dictated by: Jazmine Silver MD, PhD on 01/24/2017 at 19:22 Approved by: Jazmine Silver MD, PhD on 01/24/2017 at 19:32
--- NOTE | 2017-01-24 19:56 | ED.REPORT ---
HPI-General Illness Date of Service Jan 24, 2017 ED Provider: Jose Roberson MD The patient is a 56 year old male with a history of Crohn's disease s/p colectomy and ostomy bag presents to the ED with N/V that began this morning. He also reports include abdominal cramping that has been persistent since onset this morning. The pain does not radiate. The pain is diffuse. Patient reportedly ate fajitas this afternoon just prior to symptoms onset. He took oxycodone, aspirin, Zofran and Phenergan this afternoon for his symptoms with little relief. He denies diarrhea or hematochezia. He reports that he is taking an immunomodulating medications for management of his Crohn's disease. He reports that he has tried many medications including steroids without effect. Nursing Notes Stated Complaint: CROHNS,BLOCKAGE Chief Complaint: Male Abdominal Pain Nursing Notes Reviewed: Yes Allergies: Coded Allergies: Sulfa (Sulfonamide Antibiotics) (Verified Allergy, Severe, PALPITATIONS, FLUSHING,RASH, 01/24/17) morphine (Verified Adverse Reaction, Severe, NAUSEA, 01/24/17) Scheduled Azathioprine (Azathioprine) 50 Mg Tablet 100 MG PO DAILY Cetirizine (Cetirizine) 5 Mg Tablet 10 MG PO HS Cholecalciferol (Vitamin D3) (Vitamin D3) 2,000 Unit Tablet 2,000 UNIT PO BID Cyanocobalamin (Vitamin B-12) (B-12) 500 Mcg Tab.rapdis 2,500 MCG SL DAILY Fluticasone Propionate (Fluticasone Propionate Nasal) 16 Gm [place].susp 2 SPRAY NOSTRIL DAILY Multivitamin (Once Daily) 1 Each Tablet 1 EACH PO MONWEDFRI Omeprazole (Omeprazole) 40 Mg Capsule.dr 40 MG PO DAILY Potassium Chloride (Potassium Chloride) 20 Meq Tab.er.prt 20 MEQ PO BID Venlafaxine ER (Venlafaxine ER) 37.5 Mg Cap.er.24h 37.5 MG PO HS Zinc Gluconate (Zinc) Unknown Strength Tablet 50 MG PO BID Scheduled PRN Diphenoxylate/Atropine (Diphenoxylate-Atrop 2.5-0.025) 2.5 Mg Tablet 1-2 TAB PO TID PRN PRN For Diarrhea or Loose Stool Ondansetron ODT (Ondansetron ODT) 4 Mg Tab.rapdis 4-8 MG PO BID PRN PRN For Nausea Promethazine (Promethazine) 12.5 Mg Tablet 12.5 MG PO Q6H PRN PRN PRN Triamcinolone Acet (Triamcinolone Acetonide Ointment) 1 Applic/0.25 Gm Oint 1 APPLIC TOP BID PRN PRN skin irritation 0.1% oxyCODONE (oxyCODONE) 5 Mg Tablet 5 MG PO Q6H PRN PRN For Pain General Time Seen by MD: 18:00 Chief Complaint Vomiting Hx Obtained From: Patient Arrived By: Walk-in Sudden in Onset?: No Onset Occurred: 1 - 4 hours ago Symptom Duration: Since onset Location: : Abdomen Quality: Cramping Radiation: : Does not radiate Severity: Current: Mild Severity: Maximum: Moderate Associated with: Reports: Abdominal pain, Nausea, Vomiting Pertinent Negative: Pt denies other symptoms Recent Healthcare: No recent doctor visit, No recent hospitalization Past Medical History Past Medical History Notes: GI: Dr. Jemal Esquivel, On home IV hydration Past Medical History 1. Crohn's disease 2. Asthma 3. GERD 4. HTN 5. Depression 6. Hx of DVT and PE 2014, previously on warfarin 7. Nasal allergies 8. SBO's Past Surgical History 1. LE Vein Stripping 2. Cervical Laminectomy 3. Total Colectomy with ileostomy 4. Appendectomy 5. Bilateral Hernia Repair 6. Cholecystectomy 7. Laparotomy with lysis of adhesions 2007 8. Bowel surg x4 9. Tonsillectomy and Adenoidectomy 10. R rotator cuff Family History Sister - CHF Brother - [place] Mother - Emphysema, Lung Cancer, Stomach Cancer Smoking History Never Smoker Social History Alcohol Use: "Social" Drug Use: Denies drug use Other Social History: Good social support, Local resident Ambulatory Status Independent Review of Systems Full Review of Systems GI: Reports: Abdominal pain, Nausea, Vomiting, Denies: Diarrhea, Hematochezia Complete sys rev & neg: except as marked. Physical Exam Vital Signs Vital Signs Date Time Temp Pulse Resp B/P Pulse Ox O2 Delivery O2 Flow Rate FiO2 01/24/17 21:08 36.9 70 16 128/62 99 Room Air 01/24/17 17:56 37.0 74 14 139/60 98 Room Air Initial VS: Reviewed Neck: Supple, Non-tender, Full range of motion Extremities: Vascular intact, Neuro intact, No swelling, No tenderness Skin: Warm, Dry, No cyanosis Neurologic: Alert, Oriented, Nonfocal Psychiatric: Mood/affect normal, Behavior normal, Normal thought content General/Constitutional: Awake, Alert, No acute distress, Well appearing, Well developed Head / Eyes: Atraumatic, Normocephalic, PERRL Respiratory / Chest: Atraumatic, Breath sounds NL, Breath sounds = bilat, No respiratory distress Port present in right anterior chest wall with no signs of infection Cardiovascular: Heart rate NL, Regular rhythm, Heart sounds NL, No gallop, No murmurs, No rubs Abdomen: Atraumatic, Soft, No guarding, No rebound, No distention Tenderness/Guarding/Rebound: Positive: Tender diffuse Ostomy bag present in RLQ with brown stool Interpretation & Diagnostics Lab Results Interpretation Result Diagram: 01/24/17182001/24/17 182 Test 01/24/17 18:21 White Blood Count 6.4th/mm3 (3.8-10.1) Red Blood Count 4.14mil/mm3 (4.40-5.80) Hemoglobin 13.1g/dL (13.8-17.2) Hematocrit 37.8% (41.0-50.0) Mean Corpuscular Volume 91.3fL (81-100) Mean Corpuscular Hemoglobin 31.6pg (27.0-35.0) Mean Corpuscular Hemoglobin Concent 34.7% (32.0-37.0) Red Cell Distribution Width 13.2% (12.3-15.4) Platelet Count 112bil/L (150-400) Neutrophils (%) (Auto) 52.6% (40-74) Lymphocytes (%) (Auto) 30.6% (14-46) Monocytes (%) (Auto) 12.1% (4-12) Eosinophils (%) (Auto) 4.2% (0-5) Basophils (%) (Auto) 0.3% (0-3) Sodium Level 138mEq/L (134-144) Potassium Level 3.8mEq/L (3.5-5.2) Chloride Level 105mEq/L (97-108) Carbon Dioxide Level 17mmol/L (18-29) Blood Urea Nitrogen 21mg/dL (6-24) Creatinine 1.18mg/dL (0.76-1.27) Estimat Glomerular Filtration Rate 68mL/min (>59) Glucose Level 99mg/dL (60-99) Calcium Level 9.1mg/dL (8.5-10.1) Magnesium Level 1.3mg/dL (1.6-2.6) Total Bilirubin 0.9mg/dL (0.0-1.2) Aspartate Amino Transf (AST/SGOT) 41U/L (0-50) Alanine Aminotransferase (ALT/SGPT) 29U/L (0-44) Alkaline Phosphatase 131U/L (25-150) Total Protein 7.6g/dL (6.4-8.4) Albumin 4.2g/dL (3.4-5.0) Lipase 35U/L (13-60) Hold Brand Top Tube Received (Received) CT Abd / Pelvis Interpretation IMPRESSION: 1. Status post colectomy and right lower quadrant ostomy formation. 2. No definite acute disease process identified. 3. No dilated loops of bowel 4. No free fluid or air. 5. No inflammatory changes. 6. Mild splenomegaly. Please correlate with clinical data. Dictated by: Jazmine Silver MD, PhD on 01/24/2017 at 19:22 Study type: Abdominal CT IV contrast, Abdom CT oral contrast Interpretation / Wet Read by: Interpret - Radiologist Re-Eval/Medical Decision Med Decision/Clinical Course The patient is a 56 year old male with a history of Crohn's disease s/p colectomy and ostomy bag presents to the ED with N/V that began this morning. He also reports include abdominal cramping that has been persistent since onset this morning. The pain does not radiate. The pain is diffuse. Patient reportedly ate fajitas this afternoon just prior to symptoms onset. He took oxycodone, aspirin, Zofran and Phenergan this afternoon for his symptoms with little relief. He denies diarrhea or hematochezia. He reports that he is taking an immunomodulating medications for management of his Crohn's disease. He reports that he has tried many medications including steroids without effect. Here in the emergency department the patient is afebrile with stable vital signs and examination as above. Patient was treated with sublingual medications good affect: Zofran Dilaudid IV fluids Laboratory studies notable as below: CBC no leukocytosis Hct 37.8 CMP unremarkable lipase normal limits CT IMPRESSION: 1. Status post colectomy and right lower quadrant ostomy formation. 2. No definite acute disease process identified. 3. No dilated loops of bowel 4. No free fluid or air. 5. No inflammatory changes. 6. Mild splenomegaly. Please correlate with clinical data. Patient reports dramatic improvement after the above interventions. He requests to be discharged. He states that he will continue to take his regularly prescribed medications and follow up closely with his GI doctor. At this time there is no evidence of small bowel obstruction, perforated bowel, significant evidence of acute Crohn's flare or other immediately concerning process. Patient is tolerating PO and requested to go home. Prior to discharge follow-up and return precautions were reviewed in detail with the patient who verbalized understanding and agreement with the plan. The patient was discharged in stable condition. Time of Eval: 21:10 Patient Status: Condition improved Re-Evaluation/Progress Note: The patient's symptoms have improved upon recheck. All questions are addressed. He is informed of his results and diagnosis. The patient understands and agrees with the intended treatment plan. Counseled Regarding: Diagnosis, Lab results, Need for follow-up, When/why to return to ED Discharge & Departure Primary Impression: Nausea & vomiting Vomiting type: unspecified Vomiting Intractability: non-intractable Qualified Code: R11.2 - Nausea with vomiting, unspecified Additional Impressions: Crohn's disease Gastrointestinal tract location: unspecified location Digestive disease complication type: without complication Qualified Code: K50.90 - Crohn's disease, unspecified, without complications H/O colectomy Disposition: Home Discharge Condition All VS Reviewed: Yes Condition: Improved Patient Instructions: Acute Nausea and Vomiting (ED), Crohn Disease (ED) Additional Instructions: Thank you for seeking care at emergency room. It is difficult for us to make definitive diagnoses in the ED but we believe that you are experiencing Crohn's exacerbation. Our primary goal today in the ED was to evaluate you for any life-threatening conditions. Your evaluation was reassuring. You should follow-up with your primary doctor in the next week. You should return to the ED immediately if you develop worsening pain, fevers, vomiting, diarrhea, blood in stool, weakness or any other concerning signs or symptoms. Thank you for letting us partake in your care today. Referrals: Ricki Rutledge MD (PCP) Scribe Attestation Portions of this note were transcribed by Luis Gonsalves. I, Dr. Roberson personally performed the history, physical exam and medical decision-making; I reviewed and confirmed the accuracy of the information in the transcribed note. copies to: Ricki Rutledge MD,Jose Santiago MD Jan 24, 2017 19:56 LUIS GONSALVES Jan 24, 2017 19:58
[2017-01-24] MEDS ORDERED: HYDROmorphone 1 mg/mL Inj IVPUSH ONE (20:00)
[2017-01-24 21:08] VITALS: BP 128/62; PULSE 70; RESP 16; O2SAT 99
== END 2017-01-24 21:10 | disposition home or self-care (01) ==
LOC: SED 17:39
DX: R11.2 Nausea with vomiting, unspecified (principal); K50.90 Crohn's disease, unspecified, without complications; I10 Essential (primary) hypertension; K21.9 Gastro-esophageal reflux disease without esophagitis; J45.909 Unspecified asthma, uncomplicated; Z90.49 Acquired absence of other specified parts of digestive tract; Z93.2 Ileostomy status; Z88.2 Allergy status to sulfonamides; Z88.5 Allergy status to narcotic agent
CPT/HCPCS: 36415; 74177; 80053; 83690; 83735; 85025; 96374; 96375; 96376; 99285; J1170; J2405; J7030; Q9967

== ENCOUNTER 2017-01-26 10:27 | Day surgery (SDC) | payer OTHER ==
[~2017-01-26] VITALS: Ht 182.9 cm; Wt 86.8 kg
[2017-01-26] VITALS (16 sets, daily range): BP systolic 104–140; BP diastolic 44–76; PULSE 54–83; RESP 10–18; O2SAT 95–98
[~2017-01-26 10:27] MED LIST changes: +Cefotetan Inj 2,000 MG in IV Premix 1 EACH IV ONE; +Dexamethasone 4 mg/mL Inj IVPUSH PRN; +EPHEDrine Sulfate 50 mg/mL Inj IVPUSH PRN; +Lactated Ringer's 1,000 ML IV SCH; +Lactated Ringer's 500 ML IV PRN; +MetoCLOpramide 5 mg/mL 2 mL Inj IVPUSH PRN; +Phenylephrine 10,000 mCg/mL Inj IVPUSH PRN
[2017-01-26] MEDS: Lactated Ringer's 1,000 ML IV SCH ×4 (10:53→20:15)
[2017-01-26] MEDS ORDERED: OMEG-101 PO (11:24)
[2017-01-26] MEDS ORDERED: IVER30CR TP (11:24)
[2017-01-26] MEDS ORDERED: [UNRECOGNIZED DRUG - CODE] IV (11:24)
[2017-01-26] MEDS ORDERED: Ondansetron 2 mg/mL 2 mL Inj ONE (12:32)
[2017-01-26] MEDS: Ondansetron 2 mg/mL 2 mL Inj IVPUSH PRN ×2 (12:35→18:38)
[2017-01-26] MEDS ORDERED: Bupivacaine-MPF 0.5% 30 mL Inj INFILTRATE ONE (14:58)
[2017-01-26] MEDS ORDERED: Lactated Ringer's 1,000 ML IV ONE (17:30)
[2017-01-26] MEDS: fentaNYL-PF 50 mCg/mL 2 mL Inj IVPUSH PRN ×2 (18:18→18:38)
[2017-01-26] MEDS ORDERED: oxyCODONE-Acetamin 5-325 mg Tablet PO PRN (18:25)
--- NOTE | 2017-01-26 18:25 | PCM.DISURG ---
Surgical Discharge Instruction Date of Service Jan 26, 2017 Dates of Hospitalization Date of Hospital Admission Providers Admitting Physician: Primary Care Physician: Ricki Rutledge MD Attending Physician: Genaro Smith MD Diet Discharge Diet: No restrictions Activity Discharge Activity-General: Activity as pain allows, No lifting >15 pounds for 2 weeks, No driving while taking narcotic Dressing and Incisional Care Dressing Care: Allow Steri Stripes to fall off, Remove outer dressing after 24 hrs Hygiene: May shower after (24 hours), DO NOT soak incision under water, NO bathtub, hot tub or whirlpool Follow Up Plan Follow Up Plan In the general surgery clinic in 2-4 weeks. Call at any time with questions or concerns. Call your provider for: Fever, Chills, Increasing abdominal pain, Wound redness , Discharge @ incision, pus discharge Billy Jarvis MD Jan 26, 2017 18:24
[2017-01-26] MEDS ORDERED: DiphenOXYlate-Atropine 2.5 mg-0.025 mg Tablet PO PRN (21:35)
[2017-01-26] MEDS ORDERED: HepLOK Flush 100 unit/mL 5 mL Inj IVFLUSH SCH (22:15)
--- NOTE | 2017-01-27 07:28 | NUR ---
Recovery/ and Discharge Patient came to unit c/o severe headache. Pain medication given prior to arrival. Upon discharge Port required HEPLOK. Oder for heplok flush ordered, Dale Helms RNC flushed per protocol and patient discharged with family member at 2230.
[2017-01-27] MEDS ORDERED: Omega-3 Fatty Acids 1,000 mg Capsule PO SCH (08:00)
[2017-01-27] MEDS ORDERED: Potassium Chloride 20 mEq SR Tablet PO SCH (08:00)
[2017-01-27] MEDS ORDERED: Pantoprazole 40 mg ER24 Tablet PO SCH (08:30)
[2017-01-27] MEDS ORDERED: Fluticasone 0.05% 15 Spray/2 Gm 16 Gm Nasal Spray NASAL SCH (08:30)
--- NOTE | 2017-01-27 13:52 | PCM.HPANE ---
Patient Data Surgeon Admitting Provider: Attending Provider:Genaro Smith MD Primary Care Physician:Ricki Rutledge MD Other Provider:Chito Adkins Anesthesia Reason for Visit Left Inguinal Hernia Ht/WT & BMI Height (Feet): 6 Height (Inches): 0 Weight (Kilograms): 86.8 Body Mass Index 25.00 Allergies Coded Allergies: Sulfa (Sulfonamide Antibiotics) (Verified Allergy, Severe, PALPITATIONS, FLUSHING,RASH, 01/24/17) morphine (Verified Adverse Reaction, Severe, NAUSEA, 01/24/17) Past Anesthesia History Anesthesia History: Denies:: Abnormal Airway, Anesthesia Reactions, Difficult Intubation, Fam Anesthesia Reaction, Malignant Hyperthermia Diabetes History Hx Diabetes?: No MRSA MRSA: No Medications Hypertension Medication: No Home Meds Incl Beta Juaquin: No Reported Medications Ivermectin (Soolantra)1 % Cream..g.30 Gm TP BID 01/26/17 [place]-3 Fatty Acids/Fish Oil (Fish Oil Pearls Softgel)1 Each Capsule1 Each PO DAILY 01/26/17 Sodium Chloride 0.45 % (Sodium Chloride)500 Ml Iv.soln1,000 Ml IV DAILY TO BID 01/26/17 Diphenoxylate/Atropine (Diphenoxylate-Atrop 2.5-0.025)2.5 Mg Tablet1-2 Tab PO TID PRN For Diarrhea or Loose Stool 09/07/16 Cetirizine 5 Mg [id number] Mg PO HS Ref 0 09/07/16 Azathioprine 50 Mg [id number] Mg PO DAILY Ref 0 09/07/16 Venlafaxine ER 37.5 Mg Cap.er.24h37.5 Mg PO HS #30 08/11/16 Promethazine 12.5 Mg Ohrvga37.5 Mg PO Q6H PRN PRN #120 08/11/16 Triamcinolone Acet (Triamcinolone Acetonide Ointment)1 Applic/0.25 Gm Oint1 Applic TOP BID PRN skin irritation #60 GM Ref 0 0.1% 07/20/15 Cyanocobalamin (Vitamin B-12) (B-12)500 Mcg Tab.rapdis2,500 Mcg SL 3X WEEK 07/20/15 Fluticasone Propionate (Fluticasone Propionate Nasal)16 Gm Violet.susp2 Violet NOSTRIL BID 07/20/15 Omeprazole 40 Mg Capsule.dr40 Mg PO DAILY 07/20/15 Potassium Chloride 20 Meq Tab.er.prt20 Meq PO BID #60 07/20/15 Zinc Gluconate (Zinc)Unknown Strength [id number] Mg PO DAILY 07/20/15 Multivitamin (Once Daily)1 Each Tablet1 Each PO MONWEDFRI 07/20/15 Cholecalciferol (Vitamin D3) (Vitamin D3)2,000 Unit Tablet4,000 Unit PO AM 07/20/15 Ondansetron ODT 4 Mg Tab.rapdis4-8 Mg PO BID PRN For Nausea 07/21/14 oxyCODONE 5 Mg Tablet5 Mg PO Q6H PRN For Pain 07/21/14 History History of ENT Problems?: Yes HEENT History: Positive for:: Sinus Problem (seasonal allergies) Denies:: Abnormal Airway Cataracts Difficult Intubation Dysphagia Denture Type: None Teeth Condition: Within Normal Limits Hx of Heart Problems?: Yes Cardiovascular History: Positive for:: Cardiac Surgery (dx cath 2007) Chest Pain (ATYPICAL) Irregular Heartbeat (HX PSVT) Thrombophlebitis (2010 DVT/PE) Denies:: Congestive Heart Failure Edema Heart Murmur (ECHO 07/2015 EF 60-65%) Hypertension Pacemaker Valvular Heart Disease Hx of Respiratory Problem?: Yes Respiratory History: Positive for:: Asthma Dyspnea (SUMMER ALLERGIES) Pulmonary Embolism (2010) Denies:: COPD Chest Surgery Emphysema Hemoptysis Pneumonia Tuberculosis Use of C-PAP Machine Hx Neurologic Problems?: No Neurological History: Denies:: Alzheimer's Disease CVA Dementia Dizziness Headaches Multiple Sclerosis Parkinson's Disease Seizures Hx of GI Problems?: Yes Gastrointestinal History: Denies:: Cirrhosis Diverticulitis Gall Bladder Disease Gastroesphageal Reflux Gastrointestinal Bleeding Heartburn Hepatitis Hiatal Hernia Liver Disease Rectal Bleeding Other GI Pertinent History: left inguinal hernia current admission problem Hx of Problems?: No Genitourinary History: Denies:: Kidney Stones Urinary Tract Infection Male Hx: Positive for:: Prostate Problems (MILD) Denies:: Scrotal Mass Testicular Surgery Skin History: Positive for:: History Skin Disorders? (psoriasis ) Denies:: Pressure Ulcers Hx Musculoskeletal Problems?: No Musculoskeletal History: Positive for:: Back Injury Musculoskeletal Trauma (right rotator cuff surgery here 08/2016) Denies:: Joint Replacement Hx of Psycho/Social Problems?: Yes Psycho Social History: Positive for:: Anxiety Hx Depression Denies:: Bipolar Disorder Suicide Attempt Hx Surgeries?: Yes (LEONA,B/L HERNIA,T&A,APPY,BOWEL SURG X4-ILEOSTOMY,VEIN STRIPPING HEART CATH) Hx Any Other Health Problems?: Yes Other History: Positive for:: Hospitalization (CROHN'S) Denies:: Cancer Endocrine Disease Thyroid Disease History Blood Transfusions: Denies:: Blood Transfuse Reaction Blood Transfusions Hx Diabetes: No Hx Alcohol Use: NoHx Substance Use: Yes (HX OF METH/IVDU QUIT 1984) Smoking Status: Never Smoker Have You Smoked inLast 12 mo: No Stop/Bang Treated for Sleep Apnea?: No Do You Have a CPAP Machine?: No S-Snoring: Do You Snore Loudly: No T-Tired: feel tired, fatigued: No O-Obsered: Observed not breath: No P-Blood Pressure: treated: No B- Body Mass Index > 35 kg/m2: No A- Age over 50: Yes N- Neck Large Circumference: No G- Gender Male: Yes ELIJAH Total Score: 2 ELIJAH Risk Assessment: Low Risk, <3 Yes Risk Assessment Category Category 1A: Patient has history of documented sleep apnea, and HAS NOT received any narcotic, sedative or anesthesia administration during this stay. Category 1B: Patient has history of documented sleep apnea, and HAS received any narcotic , sedative or anesthesia administration during this stay Category 2: Patient has SUSPECTED Obstructive Sleep Apnea, and HAS received any narcotic , sedative or anesthesia administration during this stay. Category 3: Patient has SUSPECTED Obstructive Sleep Apnea and HAS NOT received narcotic, sedative or anesthesia administration during this stay. Category 4: Outpatient in Procedural Areas with known sleep apnea or who screen positive for High Risk via the STOP/BANG questionnaire. Exam Exam General Appearance: Alert, Oriented X3, Cooperative, No Acute Distress HEENT/AIRWAY: MP 2 Lungs: Clear to Auscultation, Normal Air Movement Heart: Exam Unremarkable, Regular Rate/Rhythm, No Murmurs/Rubs/Gallops Meds/Labs/Diagnostics Admission Meds Current Medications Bupivacaine HCl 30 ml 30 ml STK-MED ONCE INFILTRATE Last administered on t 14:58; Start 01/26/17 at 14:58; Stop 01/26/17 at 15:17; Status DC Lactated Ringer's (Lr) 1,000 ml @ ud STK-MED ONCE IV Last administered on 01/26t 17:30; Start 01/26/17 at 17:30; Stop 01/26/17 at 18:13; Status DC Plan Impression Patient chart reviewed, patient interviewed and anesthestic plan with risks, benefits, and alternatives discussed, and informed consent obtained. ASA Physical Status: ASA2 Mod Systemic Disease Anesthetic Plan: GA Bene/Risks/Altern/Consents: Yes HP Complete Prior to Induction: Yes Gibson Asif MD Jan 27, 2017 13:52
--- NOTE | 2017-01-27 13:52 | PCM.ANEP1 ---
Post Anesthesia PACU Phase 1 Assessment Anesthetic Administered: GA Level of Alertness: Sleepy, easy to arouse HERNANDEZ's with Equal Strength: Yes Pain: No Nausea or Vomiting: No CV Function & Hydration Stable: Yes Airway Device: Oralpharangeal Airway Oxygen Delivery: Simple Mask Lungs: Clear to Auscultation, Normal Air Movement Dermatome Level: Full Sensation PACU Phase 2 Assessment Complications: No Follow up Care: No Patient Instructions Provided: N/A Gibson Asif MD Jan 27, 2017 13:52
[2017-01-27] MEDS ORDERED: Venlafaxine XR 37.5 mg ER24 Capsule PO SCH (21:00)
--- NOTE | 2017-01-29 04:15 | OP ---
[address] [address] OPERATIVE REPORT PATIENT: MALA HAMILTON : 1960 MR#: [id number] ADMIT: 01/26/2017 JOB ID: [id number] DATE OF SURGERY: 01/26/2017 PREOPERATIVE DIAGNOSIS(ES): Recurrent left inguinal hernia. POSTOPERATIVE DIAGNOSIS(ES): Recurrent direct left inguinal hernia. OPERATION PERFORMED: Open repair of recurrent left inguinal hernia. SURGEON: Genaro Smith MD [employer]ARM PRODUCT PURCHASER: Billy Granger MD and Marcello Pizano MD. ESTIMATED BLOOD LOSS: 5 mL. COMPLICATIONS: None. CONDITION OF THE PATIENT: Stable. INDICATIONS: The patient is a 56-year-old gentleman who had repair of bilateral inguinal hernias over 30 years ago in [place]. He has since struggled with Crohn's disease requiring multiple operations, also in [place], over 25 years ago. He has a permanent ileostomy on the right side. He developed a recurrent bulge in the left groin over 10 years ago and this has been slowly getting more symptomatic with discomfort on activity. After discussing the risks, benefits and alternatives, the patient presented today for laparoscopic, possible open repair of recurrent left inguinal hernia. PROCEDURE DETAILS: He underwent smooth induction of general anesthesia, had a Landis catheter placed. I then prepped and draped the abdomen in the usual sterile fashion after isolating the stomach from the surgical field. A surgical time-out was undertaken using safety checklist and all were in agreement. I first began by making an infraumbilical incision and attempted to enter the preperitoneal space behind the left rectus, but I was not able to get a new plane as the rectus appeared to be densely adherent to the posterior rectus sheath. At that point, I packed that wound and proceeded to make an open incision over the left groin, opening his previous left lower quadrant incision. I first divided the skin and subcutaneous tissue and identified the external oblique aponeurosis and the external inguinal ring. After that, I opened the external oblique aponeurosis until the external inguinal ring and the contents of the inguinal canal away from the external oblique aponeurosis. I identified the ilioinguinal and iliohypogastric nerves and resected them to prevent chronic pain. When I initially explored the cord structures, lifting them up from the inguinal floor, I was not able to identify any obvious hernia despite some tissue laxity near the deep inguinal ring. I then opened the cord near the external inguinal ring and was able to identify a direct hernia sac, which was coming through a defect immediately lateral to the pubic tubercle. I dissected this hernia containing fat circumferentially down to the inguinal floor and, after that, reduced it into the abdominal cavity and imbricated the defect with a 2-0 PDS [id number] suture. At that point, we took a 2 x 6 Marlex mesh, appropriately cut to size, and repaired the entire inguinal floor, anchoring it to the shelving edge of the inguinal ligament inferiorly, the pubic tubercle inferomedially and the rectus abdominis medially. We created a new deep inguinal ring between the leaves of the mesh with adequate space for the cord structures to pass through. At that point, I closed the external oblique aponeurosis with running 3-0 Vicryl and Zari's and skin with 4-0 Monocryl. Steri-Strips and a sterile dressing were applied. I closed the infraumbilical incision fascia again with [id number] PDS suture and skin with 4-0 Monocryl. After that, both the wounds were dressed with Steri-Strips and a sterile dressing. The patient was recovered from anesthesia and was taken to the recovery room in stable condition.
== END 2017-01-26 23:00 | disposition home or self-care (01) ==
LOC: SAS 10:27 → OSC 20:27 → SAS 23:00
PROVIDERS: ATTEND Student in an Organized Health Care Education/Training Program
DX: K40.91 Unilateral inguinal hernia, without obstruction or gangrene, recurrent (principal); K50.90 Crohn's disease, unspecified, without complications; J45.909 Unspecified asthma, uncomplicated; Z86.718 Personal history of other venous thrombosis and embolism; Z93.2 Ileostomy status
CPT/HCPCS: 49520; C1781; J2405; J3010; J7120

== ENCOUNTER 2017-02-28 15:58 | Emergency (ER) | payer OTHER ==
[~2017-02-28] VITALS: Ht 182.9 cm; Wt 83.6 kg
[~2017-02-28 15:58] MED LIST changes: -Cefotetan Inj 2,000 MG in IV Premix 1 EACH IV ONE; -Dexamethasone 4 mg/mL Inj IVPUSH PRN; -EPHEDrine Sulfate 50 mg/mL Inj IVPUSH PRN; +IVER30CR TP; -Lactated Ringer's 1,000 ML IV SCH; -Lactated Ringer's 500 ML IV PRN; -MetoCLOpramide 5 mg/mL 2 mL Inj IVPUSH PRN; +OMEG-101 PO; +OXYC-530 PO; -OXYC5TAB72 PO; -Phenylephrine 10,000 mCg/mL Inj IVPUSH PRN; +[UNRECOGNIZED DRUG - CODE] IV
[2017-02-28 16:01] VITALS: BP 13/75; PULSE 5; RESP 18; O2SAT 98
--- NOTE | 2017-02-28 16:19 | ED.REPORT ---
HPI-Abd Pain M 40 and Over Date of Service Feb 28, 2017 ED Provider: Jemal Pillai DO Pt is a 56 year old male with a history of Crohn's disease, PE, kidney infection , and HTN who presents to the ED complaining of abdominal pain. Pt reports that his abdominal pain radiates into his lower back bilaterally. He c/o associated chills, diarrhea, nausea, and vomiting. Pt also c/o SOB secondary to his pain. He denies dysuria, urinary urgency, increased urination, fever, and chest pain. Pt reports hematochezia, but he states that this is baseline for him. Per pt, he is able to eat, but he gets IV hydration at home secondary to his Crohn's disease. He states that his vomiting has been relieved with medication taken prior to arrival. Pt states that his symptoms are similar to when he has previously been diagnosed with a kidney infection. Nursing Notes Stated Complaint: ABDOMINAL PAIN/DIFFICULTY TAKING DEEP BREATH Chief Complaint: Male Abdominal Pain Nursing Notes Reviewed: Yes Allergies: Coded Allergies: Sulfa (Sulfonamide Antibiotics) (Verified Allergy, Severe, PALPITATIONS, FLUSHING,RASH, 01/24/17) morphine (Verified Adverse Reaction, Severe, NAUSEA, 01/24/17) Scheduled Azathioprine (Azathioprine) 50 Mg Tablet 100 MG PO DAILY Cetirizine (Cetirizine) 5 Mg Tablet 10 MG PO HS Cholecalciferol (Vitamin D3) (Vitamin D3) 2,000 Unit Tablet 4,000 UNIT PO AM Cyanocobalamin (Vitamin B-12) (B-12) 500 Mcg Tab.rapdis 2,500 MCG SL 3X WEEK Fluticasone Propionate (Fluticasone Propionate Nasal) 16 Gm Dalton.susp 2 SPRAY NOSTRIL BID Ivermectin (Soolantra) 1 % Cream..g. 30 GM TP BID Multivitamin (Once Daily) 1 Each Tablet 1 EACH PO MONWEDFRI Dalton-3 Fatty Acids/Fish Oil (Fish Oil Pearls Softgel) 1 Each Capsule 1 EACH PO DAILY Omeprazole (Omeprazole) 40 Mg Capsule.dr 40 MG PO DAILY Potassium Chloride (Potassium Chloride) 20 Meq Tab.er.prt 20 MEQ PO BID Sodium Chloride 0.45 % (Sodium Chloride) 500 Ml Iv.soln 1,000 ML IV DAILY TO BID Venlafaxine ER (Venlafaxine ER) 37.5 Mg Cap.er.24h 37.5 MG PO HS Zinc Gluconate (Zinc) Unknown Strength Tablet 100 MG PO DAILY Scheduled PRN Diphenoxylate/Atropine (Diphenoxylate-Atrop 2.5-0.025) 2.5 Mg Tablet 1-2 TAB PO TID PRN PRN For Diarrhea or Loose Stool Ondansetron ODT (Ondansetron ODT) 4 Mg Tab.rapdis 4-8 MG PO BID PRN PRN For Nausea Promethazine (Promethazine) 12.5 Mg Tablet 12.5 MG PO Q6H PRN PRN PRN Triamcinolone Acet (Triamcinolone Acetonide Ointment) 1 Applic/0.25 Gm Oint 1 APPLIC TOP BID PRN PRN skin irritation 0.1% oxyCODONE (oxyCODONE) 5 Mg Tablet 5 MG PO Q6H PRN PRN For Pain General Time Seen by MD: 16:19 Chief Complaint Abdominal pain Hx Obtained From: Patient Arrived By: Walk-in Sudden in Onset?: No Onset Occurred: Onset unknown Symptom Duration: Since onset Location: : Diffuse Quality: Painful Radiation: : Does not radiate Severity: Current: Moderate Severity: Maximum: Moderate Recent Healthcare: No recent doctor visit, No recent hospitalization Similar Sx Previous: Yes Past Medical History Past Medical History Notes: GI: Dr. Jemal Esquivel, On home IV hydration Past Medical History 1. Crohn's disease 2. Asthma 3. GERD 4. HTN 5. Depression 6. Hx of DVT and PE 2014, previously on warfarin 7. Nasal allergies 8. SBO's Past Surgical History 1. LE Vein Stripping 2. Cervical Laminectomy 3. Total Colectomy with ileostomy 4. Appendectomy 5. Bilateral Hernia Repair 6. Cholecystectomy 7. Laparotomy with lysis of adhesions 2007 8. Bowel surg x4 9. Tonsillectomy and Adenoidectomy 10. R rotator cuff Family History Sister - CHF Brother - [place] Mother - Emphysema, Lung Cancer, Stomach Cancer Smoking History Never Smoker Social History Alcohol Use: "Social" Drug Use: Denies drug use Other Social History: Good social support, Local resident Ambulatory Status Independent Review of Systems Constitutional: Reports: Chills, Denies: Fever Cardiovascular: Denies: Chest pain GI: Reports: Abdominal pain, Diarrhea, Hematochezia, Nausea, Vomiting (resolved ) Male: Denies Dysuria, Denies Urinary frequency, Denies Urinary urgency Musculoskeletal: Reports: Back pain Complete sys rev & neg: except as marked. Physical Exam Initial Vital Signs Vital Signs (First) Date Time Temp Pulse Resp B/P Pulse Ox O2 Delivery O2 Flow Rate FiO2 02/28/17 16:01 36.6 5 18 98 Room Air Initial VS: Reviewed Head / Eyes: Atraumatic, Normocephalic Neck: Supple, Full range of motion Extremities: Vascular intact, Neuro intact Skin: Warm, Dry, No cyanosis Neurologic: Alert, Oriented, Nonfocal Psychiatric: Mood/affect normal, Behavior normal General/Constitutional: Awake, Alert Respiratory / Chest: Atraumatic, Breath sounds NL, Breath sounds = bilat Cardiovascular: Heart rate NL, Regular rhythm, Heart sounds NL Abdomen: Atraumatic, Soft Diffuse abdominal pain Back: Atraumatic, Full range of motion Right CVA tenderness Interpretation & Diagnostics Lab Results Interpretation Result Diagram: 02/28/17 1704 02/28/17 1704 Test 02/28/17 17:04 White Blood Count 6.5th/mm3 (3.8-10.1) Red Blood Count 4.36mil/mm3 (4.40-5.80) Hemoglobin 13.5g/dL (13.8-17.2) Hematocrit 38.5% (41.0-50.0) Mean Corpuscular Volume 88.3fL (81-100) Mean Corpuscular Hemoglobin 31.0pg (27.0-35.0) Mean Corpuscular Hemoglobin Concent 35.1% (32.0-37.0) Red Cell Distribution Width 12.2% (12.3-15.4) Platelet Count 90bil/L (150-400) Neutrophils (%) (Auto) 54.2% (40-74) Lymphocytes (%) (Auto) 32.8% (14-46) Monocytes (%) (Auto) 8.8% (4-12) Eosinophils (%) (Auto) 3.7% (0-5) Basophils (%) (Auto) 0.3% (0-3) Sodium Level 138mEq/L (134-144) Potassium Level 3.7mEq/L (3.5-5.2) Chloride Level 103mEq/L (97-108) Carbon Dioxide Level 19mmol/L (18-29) Blood Urea Nitrogen 17mg/dL (6-24) Creatinine 1.27mg/dL (0.76-1.27) Estimat Glomerular Filtration Rate 62mL/min (>59) Glucose Level 85mg/dL (60-99) Lactic Acid Level 0.9mmol/L (0.4-2.0) Calcium Level 8.9mg/dL (8.5-10.1) Magnesium Level 1.4mg/dL (1.6-2.6) Total Bilirubin 0.8mg/dL (0.0-1.2) Aspartate Amino Transf (AST/SGOT) 30U/L (0-50) Alanine Aminotransferase (ALT/SGPT) 23U/L (0-44) Alkaline Phosphatase 120U/L (25-150) Total Protein 7.3g/dL (6.4-8.4) Albumin 4.1g/dL (3.4-5.0) Lipase 22U/L (13-60) CT Abd / Pelvis Interpretation IMPRESSION: 1. Mildly dilated loops of small bowel which could represent ileus versus partial or early small bowel obstruction. Please correlate with clinical data. 2. Status post colectomy with right lower quadrant ostomy formation. 3. No free fluid or air. 4. No definite abscess. 5. No acute inflammatory changes. 6. Mild splenomegaly stable compared to 01/24/17. Dictated by: Jazmine Silver MD, PhD on 02/28/2017 at 18:06 Study type: Abdominal CT IV contrast Interpretation / Wet Read by: Interpret - Radiologist Re-Eval/Medical Decision Med Decision/Clinical Course Patient prevent presents with diffuse abdominal pain however no change in his baseline of daily morning vomiting and normal stool output. CT shows mild nonspecific small bowel without clinical evidence of small bowel obstruction or ileus. Patient denies any urinary symptoms, his pain is not radicular and does not sound like spinal cord pathology. Patient agrees to follow up with his regular doctor. He agrees with discharge plan. Return precautions given. Source of Hx: Old records Time of Eval: 18:17 Re-Evaluation/Progress Note: Pt rechecked. He is feeling better. Informed pt of plan for discharge. Pt understands and agrees with plan for discharge. F/U instructions and RTER warnings given. All questions addressed. Counseled Regarding: Diagnosis, Lab results, Need for follow-up, When/why to return to ED Discharge & Departure Primary Impression: Crohns disease Gastrointestinal tract location: unspecified location Digestive disease complication type: with rectal bleeding Qualified Code: K50.911 - Crohn's disease, unspecified, with rectal bleeding Additional Impression: Hypomagnesemia Disposition: Home Vital Signs - All Vital Signs Date Time Temp Pulse Resp B/P Pulse Ox O2 Delivery O2 Flow Rate FiO2 02/28/17 16:01 36.6 5 18 98 Room Air )( All Prior VS Reviewed: Yes Condition: Stable Patient Instructions: Acute Abdominal Pain (ED) Additional Instructions: Your workup in the ER is reassuring. we see no evidence of ongoing infection or sign of worsening of your Crohn's disease. Call your GI doctor in the morning for close follow-up. Continue your regular medicines. Return to the ER as needed for worsening symptoms. Referrals: Ricki Rutledge MD (PCP) Scribe Attestation Portions of this note were transcribed by Paloma Rivera. I, Dr. Pillai personally performed the history, physical exam and medical decision-making; I reviewed and confirmed the accuracy of the information in the transcribed note. Signed by: Akila Freeman, 02/28/17. copies to: Ricki Rutledge MD, Timothy S DO Feb 28, 2017 16:19 Paloma Reese Feb 28, 2017 16:29
[2017-02-28] MEDS ORDERED: 0.9% Sodium Chloride 1,000 ML IV ONE (16:28)
[2017-02-28] MEDS ORDERED: HYDROmorphone 1 mg/mL Inj IVPUSH PRN (16:30)
[2017-02-28] MEDS ORDERED: Ondansetron 2 mg/mL 2 mL Inj IVPUSH PRN (16:30)
[2017-02-28] MEDS ORDERED: HYDROmorphone Inj 2 MG in 0.9% Sodium Chloride 100 ML IV ONE (16:30)
[2017-02-28] MEDS ORDERED: HYDROmorphone 0.5 mg/0.5 mL iSecure Syringe IVPUSH ONE (16:45)
[2017-02-28 17:17] LABS: BASOPHILS % (AUTO) 0.3 % (0-3)
[2017-02-28 17:22] LABS: EOSINOPHILS % (AUTO) 3.7 % (0-5); MONOCYTES % (AUTO) 8.8 % (4-12); Mean Corpuscular Volume 88.3 fL (81-100); NEUTROPHILS % (AUTO) 54.2 % (40-74); Platelet Count 90 bil/L (150-400)
[2017-02-28 17:39] LABS: Magnesium 1.4 mg/dL (1.6-2.6)
[2017-02-28] MEDS ORDERED: Magnesium Sulf 2 Gm/50mL Water 2 GM in IV Premix 1 EACH IV ONE (18:00)
--- NOTE | 2017-02-28 18:15 | DRSVH ---
PROCEDURE: CT ABDOMEN AND PELVIS WITH CONTRAST ([id number]) INDICATIONS: diffuse abd and back pain TECHNIQUE: After the administration of intravenous contrast, 5 mm thick sections acquired from the diaphragm to the symphysis. 5 mm coronal and sagittal reformats were acquired. For radiation dose reduction, the following was used: automated exposure control, adjustment of mA and/or kV according to patient siz e. COMPARISON: [facility], CT, CT ABD PELVIS W CON, 01/24/2017, 19:[facility] 3VW, 10/18/2016, 13:29. [facility], CT, CT ABD PELVIS W CON, 08/10/2016, 21:17. [facility], CT, CT ABD PELVIS W CON, 01/21/2016, 18:50. [facility], CR, XR ABD ACUTE SERIES 3VW, 01/21/2016, 17:19. [facility], CT, CT ABD PELVIS W CON, 08/02/2015, 0:19. [facility], CR, XR ABD ACUTE SERIES 3VW, 05/11/2015, 12:16. [facility], CT, ABD/PELVIS W/CON (PNL), 07/21/2014, 11:14. [facility], CT, ABD/PE LVIS W/CON (PNL), 07/23/2013, 20:33. [facility], CR, ABD ACUTE SERIES, 07/23/2013, 7:44. [facility], CR, SMALL BOWEL, BARIUM, 06/27/2012, 8:57. FINDINGS: Image quality: Excellent. ABDOMEN: Lung bases: Lung bases are clear. Heart size is normal. Solid organs: Liver and spleen are normal in enhancement. Spleen is mildly enlarged, but stable comp ared to 01/24/17. Gallbladder surgically absent. Biliary system is non dilated. Pancreas enhances nor umer. No adrenal nodules. Kidneys demonstrate normal size and enhancement, without hydronephrosis. Peritoneum and bowel: Small hiatal hernia is noted. Status post colectomy with right lower quadrant ostomy formation is stable in appearance compared to prior examinations. Mildly dilated loops of sm all bowel noted in the left lower quadrant in the pelvis that measure up to 3.1 cm. No free fluid or air. Nodes and vessels: No retroperitoneal or mesenteric adenopathy by size criteria. Aorta and inferior vena cava are normal in size. Miscellaneous: No ventral hernias. PELVIS: Genitourinary: Bladder wall thickness is normal. Miscellaneous: No inguinal hernias or adenopathy. Bones: No suspicious bony lesions. No vertebral body compression fractures. Spine degenerative dise ase and facet arthropathy noted. IMPRESSION: 1. Mildly dilated loops of small bowel which could represent ileus versus partial or early small bow el obstruction. Please correlate with clinical data. 2. Status post colectomy with right lower quadrant ostomy formation. 3. No free fluid or air. 4. No definite abscess. 5. No acute inflammatory changes. 6. Mild splenomegaly stable compared to 01/24/17. Dictated by: Jazmine Silver MD, PhD on 02/28/2017 at 18:06 Approved by: Jazmine Silver MD, PhD on 02/28/2017 at 18:13
[2017-02-28] MEDS: HYDROmorphone 0.5 mg/0.5 mL iSecure Syringe IVPUSH PRN ×2 (18:20→19:19)
[2017-02-28] MEDS ORDERED: HepLOK Flush 100 unit/mL 5 mL Inj ONE (19:18)
[2017-02-28 19:24] VITALS: BP 128/72; PULSE 59; RESP 16; O2SAT 97
== END 2017-02-28 19:26 | disposition home or self-care (01) ==
LOC: SED 15:58
DX: K50.911 Crohn's disease, unspecified, with rectal bleeding (principal); E83.42 Hypomagnesemia; R06.02 Shortness of breath; I10 Essential (primary) hypertension; J45.909 Unspecified asthma, uncomplicated; K21.9 Gastro-esophageal reflux disease without esophagitis; F32.9 Major depressive disorder, single episode, unspecified; Z87.440 Personal history of urinary (tract) infections; Z90.49 Acquired absence of other specified parts of digestive tract; Z98.890 Other specified postprocedural states; Z88.2 Allergy status to sulfonamides; Z88.5 Allergy status to narcotic agent
CPT/HCPCS: 36415; 74177; 80053; 83605; 83690; 83735; 85025; 96365; 96375; 96376; 99285; J1170; J1642; J2405; J7030; Q9967